=== PATIENT | female | born 1945 | race Caucasian/White ===

== ENCOUNTER 2016-10-04 00:16 | Emergency (ER) | payer MEDICARE, BC ==
[2016-10-04] MEDS ORDERED: Ketorolac 30 MG/ML SDV IVPUSH ONE (00:35)
[2016-10-04] MEDS ORDERED: LORazepam 2 MG/ML MDV IVPUSH ONE (00:35)
[2016-10-04] MEDS ORDERED: Sodium Chloride 0.9% 1,000 ML IV ONE (00:35)
[2016-10-04] MEDS ORDERED: Ondansetron 4 MG/2 ML SDV IVPUSH ONE (00:35)
--- NOTE | 2016-10-04 00:41 | EDM.PDOC ---
ED HPI GENERAL MEDICAL PROBLEM - General Chief Complaint: Abdominal Pain Stated Complaint: BLADDER INFECTION Time Seen by Provider: 10/04/16 00:24 Source of Information: Reports: Patient History Limitations: Reports: No Limitations - History of Present Illness INITIAL COMMENTS - FREE TEXT/NARRATIVE: HISTORY AND PHYSICAL: History of present illness: [71-year-old female with a history of chronic abdominal pain and recurrent episodes of nonspecific colitis now presents to the emergency department complaining of gradual onset of abdominal pain typical for her. Patient states she has left lower abdominal pain. Is not worse with movement. She has nausea associated with it but no actual vomiting. No diarrhea. Normal bowel and bladder habits. No right upper quadrant or right lower quadrant tenderness.] Review of systems: As per history of present illness and below otherwise all systems reviewed and negative. Past medical history: As per history of present illness and as reviewed below otherwise noncontributory. Surgical history: As per history of present illness and as reviewed below otherwise noncontributory. Social history: No reported history of drug or alcohol abuse. Family history: As per history of present illness and as reviewed below otherwise noncontributory. Physical exam: HEENT: Atraumatic, normocephalic, pupils reactive, negative for conjunctival pallor or scleral icterus, mucous membranes moist, throat clear, neck supple, nontender, trachea midline. Lungs: Clear to auscultation, breath sounds equal bilaterally, chest nontender. Heart: S1S2, regular, negative for clicks, rubs, or JVD. Abdomen: Soft, nondistended, no focal abdominal tenderness. Negative for masses or hepatosplenomegaly. Negative for costovertebral tenderness. Pelvis: Stable nontender. Genitourinary: Deferred. Rectal: Deferred. Extremities: Atraumatic, negative for cords or calf pain. Neurovascular unremarkable. Neuro: Awake, alert, oriented. Cranial nerves grossly unremarkable. Exam nonfocal. Diagnostics: [CT abdomen and pelvis with gallstones otherwise unremarkable. No urologic evidence of an acute right upper quadrant process. Therapeutics: [Toradol, Ativan, Zofran, IV fluids administered] Impression: [Acute exacerbation of chronic abdominal pain Cholelithiasis Nausea] Plan: [Signs and symptoms consistent with exacerbation of chronic abdominal pain well known to patient. No fevers chills sweats or shaking chills. No focal abdominal tenderness. Specifically no right upper right lower quadrant tenderness. Patient has no actual vomiting however she is spitting into a bag initially. Patient has a clearly contributory anxiety component which was resolved with Ativan dose and she was sleeping comfortably. Patient asymptomatic on reevaluation prior to discharge. No further workup or treatment indicated. Patient and family agree with outpatient follow-up and strict return precautions given] Definitive disposition and diagnosis as appropriate pending reevaluation and review of above. Lower Abdomen Pain Score (Numeric/FACES): 6 - Related Data Allergies Allergy/AdvReac Type Severity Reaction Status Date / Time No Known Allergies Allergy Verified 10/04/16 00:29 Home Meds: Home Meds Levothyroxine 75 mcg PO DAILY 10/08/13 [History] oxyCODONE HCl/Acetaminophen [Endocet 10-325 MG] 10 - 325 tab PO Q4HR PRN [History] predniSONE [Prednisone] 5 mg PO BID 07/23/15 [History] Aspirin 81 mg PO DAILY 10/04/16 [History] Cimetidine 200 mg PO ASDIRECTED PRN 10/04/16 [History] Fish Oil/[place]-3 Fatty Acids [Fish Oil 1,000 MG] 1 tab PO DAILY 10/04/16 [ History] Flaxseed Oil [Flaxseed] 0 mg PO DAILY 10/04/16 [History] Magnesium 0 mg PO DAILY 10/04/16 [History] Multivit-Min/FA/Lycopene/Lut [Centrum Silver Tablet] 1 tab PO DAILY 10/04/16 [ History] Ondansetron [Zofran ODT] 4 mg SL Q4H PRN #16 tab.dis 10/04/16 [Rx] Sulfamethoxazole/Trimethoprim [Septra DS] 800 mg PO BID 10/04/16 [History] Past Medical History HEENT History: Reports: None Cardiovascular History: Reports: CAD, [place], Stents Other Cardiovascular History: stent placement due to heart attack 10 years ago Respiratory History: Reports: None, Other (See Below) Gastrointestinal History: Reports: None, Other (See Below) Other Gastrointestinal History: stomach issues, of unknown cause.per son Genitourinary History: Reports: None 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: Musculoskeletal History: Reports: Osteoarthritis Neurological History: Reports: None Psychiatric History: Reports: None Endocrine/Metabolic History: Reports: None Other Endocrine/Metabolic History: pt is on on synthroid Hematologic History: Reports: None Immunologic History: Reports: None Oncologic (Cancer) History: Reports: None Dermatologic History: Reports: None - Infectious Disease History Infectious Disease History: Reports: Chicken Pox, Measles, Mumps - Past Surgical History Cardiovascular Surgical History: Reports: Coronary Artery Stent Female Surgical History: Reports: Tubal Ligation Social & Family History - Family History Family Medical History: Unobtainable Neurological: Reports: CVA Other Neurological Family History: brother - Tobacco Use Smoking Status *Q: Current Every Day Smoker Years of Tobacco use: 50 Packs/Tins Daily: 1 Used Tobacco, but Quit: No Second Hand Smoke Exposure: No - Alcohol Use Days Per Week of Alcohol Use: 0 - Recreational Drug Use Recreational Drug Use: No ED ROS GENERAL - Review of Systems Review Of Systems: See Below (History of present illness) ED EXAM, GI/ABD - Physical Exam Exam: See Below (History of present illness) Course - Vital Signs Last Recorded V/S: Last Vital Signs Temp 36.7 C 10/04/16 00:19 Pulse 94 10/04/16 02:35 Resp 16 10/04/16 02:35 BP 128/58 L 10/04/16 02:35 Pulse Ox 97 10/04/16 02:35 - Orders/Labs/Meds Orders: Active Orders 24 hr Category Date Time Status Abdomen Pelvis w Cont [CT] Stat Exams 10/04/16 00:25 Taken Labs: Laboratory Tests 10/04/16 10/04/16 10/04/16 Range/Units 00:39 00:39 01:14 WBC 7.00 (4.0-11.0) K/uL RBC 4.62 (4.30-5.90) M/uL Hgb 15.1 (12.0-16.0) g/dL Hct 44.6 (36.0-46.0) % MCV 96.5 (80.0-98.0) fL MCH 32.7 H (27.0-32.0) pg MCHC 33.9 (31.0-37.0) g/dL RDW Std Deviation 48.4 (28.0-62.0) fl RDW Coeff of Maxim 14 (11.0-15.0) % Plt Count 150 (150-400) K/uL MPV 10.10 (7.40-12.00) fL Neut % (Auto) 83.2 H (48.0-80.0) % Lymph % (Auto) 6.3 L (16.0-40.0) % [place] % (Auto) 6.4 (0.0-15.0) % Eos % (Auto) 4.1 (0.0-7.0) % Baso % (Auto) 0.0 (0.0-1.5) % Neut # (Auto) 5.8 H (1.4-5.7) K/uL Lymph # (Auto) 0.4 L (0.6-2.4) K/uL [place] # (Auto) 0.5 (0.0-0.8) K/uL Eos # (Auto) 0.3 (0.0-0.7) K/uL Baso # (Auto) 0.0 (0.0-0.1) K/uL Sodium 133 L (136-146) mmol/L Potassium 4.1 (3.5-5.1) mmol/L Chloride 99 (98-110) mmol/L Carbon Dioxide 22 (21-31) mmol/L BUN 13 (6.0-23.0) mg/dL Creatinine 1.3 (0.6-1.5) mg/dL Est Cr Clr Drug Dosing 29.52 mL/min Estimated GFR (MDRD) 40.3 ml/min Glucose 83 (60-110) mg/dL Calcium 9.8 (8.8-10.8) mg/dL Total Bilirubin 0.3 (0.1-1.5) mg/dL AST 26 (5-40) IU/L ALT 22 (8-54) IU/L Alkaline Phosphatase 54 (40-150) Total Protein 7.9 (6.0-8.0) g/dL Albumin 4.2 (3.4-4.8) g/dL Globulin 3.7 H (2.0-3.5) g/dL Albumin/Globulin Ratio 1.1 L (1.3-2.8) Lipase 10 (7-80) U/L Urine Color YELLOW Urine Appearance CLEAR Urine pH 6.0 (5.0-8.0) Ur Specific [place] >= 1.030 (1.001-1.035) Urine Protein NEGATIVE (NEGATIVE) mg/dL Urine Glucose (UA) NEGATIVE (NEGATIVE) mg/dL Urine Ketones 15 H (NEGATIVE) mg/dL Urine Occult Blood TRACE-INTACT (NEGATIVE) Urine Nitrite NEGATIVE (NEGATIVE) Urine Bilirubin NEGATIVE (NEGATIVE) Urine Urobilinogen 0.2 (<2.0) EU/dL Ur Leukocyte Esterase NEGATIVE (NEGATIVE) Urine RBC 0-3 (0-2/HPF) Urine WBC 0-1 (0-5/HPF) Ur Epithelial Cells RARE (NONE-FEW) Urine Bacteria RARE (NEGATIVE) Urine Mucus LIGHT (NONE-MOD) Meds: Medications Discontinued Medications Generic Name Dose Route Start Last Admin Trade Name Freq PRN Reason Stop Dose Admin Sodium Chloride 1,000 mls @ 999 mls/hr 10/04/16 00:35 10/04/16 00:48 Normal Saline IV 10/04/16 01:35 999 mls/hr STAT ONE Administration Iopamidol 50 ml 10/04/16 01:30 10/04/16 01:31 Isovue-300 (61%) IVPUSH 10/04/16 01:31 50 ml ONETIME STA Administration Ketorolac Tromethamine 15 mg 10/04/16 00:35 10/04/16 00:48 Toradol IVPUSH 10/04/16 00:36 15 mg ONETIME ONE Administration Lorazepam 0.5 mg 10/04/16 00:35 10/04/16 00:48 Ativan IVPUSH 10/04/16 00:36 0.5 mg ONETIME ONE Administration Ondansetron HCl 4 mg 10/04/16 00:35 10/04/16 00:48 Zofran IVPUSH 10/04/16 00:36 4 mg ONETIME ONE Administration Departure - Departure Time of Disposition: 02:57 Disposition: Home, Self-Care 01 Condition: Good Clinical Impression: Abdominal pain, Cholelithiasis - Discharge Information Instructions: Abdominal Pain, Adult, [id number] Referrals: Robert Haynes MD [Primary Care Provider] - Forms: ED Department Discharge Additional Instructions: Your labs are unremarkable today and your CAT scan showed no evidence of an emergency tonight. There was an incidental finding of gallstones. Follow-up with your DrAllan for reevaluation and referral to surgery to discuss possibly removing your gallbladder as an outpatient. Use Zofran under your tongue as needed for nausea and follow-up with your doctor in the morning. Return immediately for new severe or worsening symptoms - My Orders Last 24 Hours: My Active Orders 10/04/16 00:25 Abdomen Pelvis w Cont [CT] Stat - Assessment/Plan Last 24 Hours: My Active Orders 10/04/16 00:25 Abdomen Pelvis w Cont [CT] Stat
[2016-10-04] MEDS ORDERED: Iopamidol 612 MG/ML 50 ML SDV IVPUSH STA (01:30)
[2016-10-04 03:17] VITALS: BP 131/61
--- NOTE | 2016-10-04 08:49 | CT ---
EXAM DATE: 10/04/16 PATIENT'S AGE: 71 Patient: DINAH DESAI Facility: [place], [place] Site . Site : 1945 Study: CT Abdomen/Pelvis [id number] 2:23:05 AM Ordering Physician: Doctor Ingram Final Report: INDICATION: Severe abdominal pain. TECHNIQUE: CT abdomen and pelvis acquired with 50 mL Isovue 300 IV contrast. COMPARISON: CT abdomen and pelvis September 19, 2010. FINDINGS: Lower chest: Unremarkable. Liver: Unremarkable. Spleen: Unremarkable. Pancreas: Unremarkable. Gallbladder and bile ducts: Tiny stones layering in the fundus of the gallbladder. No pericholecystic inflammatory changes. No evidence of biliary ductal dilatation. Kidneys: Unremarkable. Adrenal glands: Unremarkable. GI tract: No bowel obstruction or focal inflammatory changes. The appendix is normal. No free air or free fluid. Vascular structures: No abdominal aortic aneurysm. Atherosclerotic disease. Lymph nodes: Unremarkable. Pelvic Organs: Unremarkable. Bones: Degenerative changes. IMPRESSION: No acute intra-abdominal or pelvic abnormality. Cholelithiasis. Dictated by Wilver Elizondo MD @ 10/04/2016 2:45:47 AM Dictated by: Wilver Elizondo MD @ 10/04/2016 02:46:15 (Electronic Signature) Report Signed by Proxy. [facility]FINE HOSPITALAguilar
== END 2016-10-04 03:10 | disposition home or self-care (01) ==
LOC: MW.ED 00:16
DX: R10.9 Unspecified abdominal pain (principal); G89.29 Other chronic pain; R11.0 Nausea; K80.20 Calculus of gallbladder without cholecystitis without obstruction; I25.2 Old myocardial infarction; I25.10 Atherosclerotic heart disease of native coronary artery without angina pectoris; M19.90 Unspecified osteoarthritis, unspecified site; F17.210 Nicotine dependence, cigarettes, uncomplicated; Z95.5 Presence of coronary angioplasty implant and graft; Z98.51 Tubal ligation status; Z79.82 Long term (current) use of aspirin; Z79.899 Other long term (current) drug therapy
CPT/HCPCS: 36415; 74177; 80053; 81001; 83690; 85025; 96361; 96374; 96375; 99284; J1885; J2060; J2405; J7040; Q9967; 99283

== ENCOUNTER 2016-10-04 12:59 | Inpatient (IN) | payer MEDICARE, BC ==
[2016-10-04] MEDS ORDERED: Acetaminophen 325 MG Tab PO ONE (13:10)
[2016-10-04] MEDS ORDERED: Acetaminophen 650 MG Supp RECTAL ONE (13:16)
[2016-10-04] MEDS: Sodium Chloride 0.9% 1,000 ML IV SCH ×2 (13:22→23:48)
[2016-10-04] MEDS ORDERED: Piperacillin/Tazobactam 3.375 GM in Sodium Chloride 0.9% 50 ML IV ONE (13:25)
--- NOTE | 2016-10-04 14:31 | CR ---
Single view chest The gastric angles are sharp. The cardiac mediastinum is normal. Lungs are clear. Given history of p ain with shortness of breath there's no pneumothorax. Impression: Normal single view chest
--- NOTE | 2016-10-04 14:41 | EDM.PDOC ---
ED HPI GENERAL MEDICAL PROBLEM - General Chief Complaint: Abdominal Pain Stated Complaint: AMBULANCE Time Seen by Provider: 10/04/16 14:35 Source of Information: Reports: Patient, EMS - History of Present Illness INITIAL COMMENTS - FREE TEXT/NARRATIVE: HISTORY AND PHYSICAL: History of present illness: []Patient presents via ambulance She was seen last night at approximately 4 AM with abdominal pain in the left lower quadrant. She was previously diagnosed with a cystitis, and placed on Bactrim over the last couple of days, urine culture is growing out Klebsiella pneumoniae susceptible to Bactrim. Patient had normal lab of 4 AM including CBC CMP UA CT abdomen pelvis was also performed with no acute finding Review of systems: As per history of present illness and below otherwise all systems reviewed and negative. Past medical history: As per history of present illness and as reviewed below otherwise noncontributory. Surgical history: As per history of present illness and as reviewed below otherwise noncontributory. Social history: No reported history of drug or alcohol abuse. Family history: As per history of present illness and as reviewed below otherwise noncontributory. Physical exam: HEENT: Atraumatic, normocephalic, pupils reactive, negative for conjunctival pallor or scleral icterus, mucous membranes moist, throat clear, neck supple, nontender, trachea midline. Lungs: Clear to auscultation, breath sounds equal bilaterally, chest nontender. Heart: S1S2, regular, negative for clicks, rubs, or JVD. Abdomen: Soft, nondistended, tender in left lower quadrant is previous exam of 4 AM however there is some right upper quadrant tenderness as well as right lower quadrant tenderness this afternoon no guarding or rebound. Negative for masses or hepatosplenomegaly. Negative for costovertebral tenderness. Pelvis: Stable nontender. Genitourinary: Deferred. Rectal: Deferred. Extremities: Atraumatic, negative for cords or calf pain. Neurovascular unremarkable. Neuro: Awake, alert, oriented. Cranial nerves II through XII unremarkable. Cerebellum unremarkable. Motor and sensory unremarkable throughout. Exam nonfocal. Diagnostics: []Lab as below Chest [address] abdomen pelvis on file from 4 AM Ultrasound right upper quadrant and right lower quadrant Therapeutics: Normal saline 125 mL per hour []Zosyn 3.375 mg IV Impression: []Abdominal pain Fever Day 6 of Bactrim Previous UTI Sinus tenderness Definitive disposition and diagnosis as appropriate pending reevaluation and review of above. - Related Data Allergies Allergy/AdvReac Type Severity Reaction Status Date / Time No Known Allergies Allergy Verified 10/04/16 13:04 Home Meds: Home Meds Levothyroxine 75 mcg PO DAILY 10/08/13 [History] oxyCODONE HCl/Acetaminophen [Endocet 10-325 MG] 10 - 325 tab PO Q4HR PRN [History] predniSONE [Prednisone] 5 mg PO BID 07/23/15 [History] Aspirin 81 mg PO DAILY 10/04/16 [History] Cimetidine 200 mg PO ASDIRECTED PRN 10/04/16 [History] Fish Oil/[place]-3 Fatty Acids [Fish Oil 1,000 MG] 1 tab PO DAILY 10/04/16 [ History] Flaxseed Oil [Flaxseed] 0 mg PO DAILY 10/04/16 [History] Magnesium 0 mg PO DAILY 10/04/16 [History] Multivit-Min/FA/Lycopene/Lut [Centrum Silver Tablet] 1 tab PO DAILY 10/04/16 [ History] Ondansetron [Zofran ODT] 4 mg SL Q4H PRN #16 tab.dis 10/04/16 [Rx] Sulfamethoxazole/Trimethoprim [Septra DS] 800 mg PO BID 10/04/16 [History] Past Medical History - Past Health History Medical/Surgical History: Denies Medical/Surgical History HEENT History: Reports: None Cardiovascular History: Reports: CAD, [place], Stents Other Cardiovascular History: stent placement due to heart attack 10 years ago Respiratory History: Reports: None, Other (See Below) Gastrointestinal History: Reports: None, Other (See Below) Other Gastrointestinal History: stomach issues, of unknown cause.per son Genitourinary History: Reports: None 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: Musculoskeletal History: Reports: Osteoarthritis Neurological History: Reports: None Psychiatric History: Reports: None Endocrine/Metabolic History: Reports: None Other Endocrine/Metabolic History: pt is on on synthroid Hematologic History: Reports: None Immunologic History: Reports: None Oncologic (Cancer) History: Reports: None Dermatologic History: Reports: None - Infectious Disease History Infectious Disease History: Reports: Chicken Pox, Measles, Mumps - Past Surgical History Cardiovascular Surgical History: Reports: Coronary Artery Stent Female Surgical History: Reports: Tubal Ligation Social & Family History - Family History Family Medical History: Unobtainable Neurological: Reports: CVA Other Neurological Family History: brother - Tobacco Use Smoking Status *Q: Current Every Day Smoker Years of Tobacco use: 50 Packs/Tins Daily: 1 Used Tobacco, but Quit: No Second Hand Smoke Exposure: No - Caffeine Use Caffeine Use: Reports: Coffee Caffeine Use Comment: 1cups/day - Alcohol Use Days Per Week of Alcohol Use: 0 - Recreational Drug Use Recreational Drug Use: No ED ROS GENERAL - Review of Systems Review Of Systems: ROS reveals no pertinent complaints other than HPI. ED EXAM, GENERAL - Physical Exam Exam: See Below Course - Vital Signs Last Recorded V/S: Last Vital Signs Temp 39.6 C H 10/04/16 14:56 Pulse 116 H 10/04/16 14:11 Resp 20 10/04/16 14:11 BP 133/69 10/04/16 14:11 Pulse Ox 98 10/04/16 14:11 - Orders/Labs/Meds Orders: Active Orders 24 hr Category Date Time Status EKG Documentation Completion [RC] STAT Care 10/04/16 13:14 Active CULTURE BLOOD [BC] Stat Lab 10/04/16 13:05 Received CULTURE BLOOD [BC] Stat Lab 10/04/16 13:10 Received Sodium Chloride 0.9% [Normal Saline] 1,000 ml Med 10/04/16 13:15 Active IV STAT Blood Culture x2 Reflex Set [OM.PC] Stat Oth 10/04/16 13:08 Ordered Medication Orders Sodium Chloride (Normal Saline) 1,000 mls @ 125 mls/hr IV STAT LUDIN Last Admin: 10/04/16 13:22 Dose: 125 mls/hr Labs: Laboratory Tests 10/04/16 10/04/16 10/04/16 Range/Units 13:05 13:05 13:05 WBC 4.96 (4.0-11.0) K/uL RBC 4.49 (4.30-5.90) M/uL Hgb 14.5 (12.0-16.0) g/dL Hct 43.0 (36.0-46.0) % MCV 95.8 (80.0-98.0) fL MCH 32.3 H (27.0-32.0) pg MCHC 33.7 (31.0-37.0) g/dL RDW Std Deviation 50.6 (28.0-62.0) fl RDW Coeff of [place] 14 (11.0-15.0) % Plt Count 125 L (150-400) K/uL MPV 10.10 (7.40-12.00) fL Neut % (Auto) 66.5 (48.0-80.0) % Lymph % (Auto) 13.1 L (16.0-40.0) % [place] % (Auto) 13.3 (0.0-15.0) % Eos % (Auto) 6.9 (0.0-7.0) % Baso % (Auto) 0.2 (0.0-1.5) % Neut # (Auto) 3.3 (1.4-5.7) K/uL Lymph # (Auto) 0.7 (0.6-2.4) K/uL [place] # (Auto) 0.7 (0.0-0.8) K/uL Eos # (Auto) 0.3 (0.0-0.7) K/uL Baso # (Auto) 0.0 (0.0-0.1) K/uL Nucleated RBC % 0.8 /100WBC Nucleated RBCs # 0 K/uL Lactate 1.1 (0.20-2.00) mmol/L Sodium 134 L (136-146) mmol/L Potassium 4.0 (3.5-5.1) mmol/L Chloride 103 (98-110) mmol/L Carbon Dioxide 21 (21-31) mmol/L BUN 16 (6.0-23.0) mg/dL Creatinine 1.1 (0.6-1.5) mg/dL Est Cr Clr Drug Dosing 34.88 mL/min Estimated GFR (MDRD) 48.8 ml/min Glucose 76 (60-110) mg/dL Calcium 9.2 (8.8-10.8) mg/dL Total Bilirubin 0.3 (0.1-1.5) mg/dL AST 32 (5-40) IU/L ALT 23 (8-54) IU/L Alkaline Phosphatase 50 (40-150) Troponin I (0.0-0.29) NG/ML Total Protein 7.3 (6.0-8.0) g/dL Albumin 3.9 (3.4-4.8) g/dL Globulin 3.4 (2.0-3.5) g/dL Albumin/Globulin Ratio 1.1 L (1.3-2.8) Urine Color Urine Appearance Urine pH (5.0-8.0) Ur Specific [place] (1.001-1.035) Urine Protein (NEGATIVE) mg/dL Urine Glucose (UA) (NEGATIVE) mg/dL Urine Ketones (NEGATIVE) mg/dL Urine Occult Blood (NEGATIVE) Urine Nitrite (NEGATIVE) Urine Bilirubin (NEGATIVE) Urine Urobilinogen (<2.0) EU/dL Ur Leukocyte Esterase (NEGATIVE) Urine RBC (0-2/HPF) Urine WBC (0-5/HPF) Ur Epithelial Cells (NONE-FEW) Urine Bacteria (NEGATIVE) 10/04/16 10/04/16 Range/Units 13:05 14:22 WBC (4.0-11.0) K/uL RBC (4.30-5.90) M/uL Hgb (12.0-16.0) g/dL Hct (36.0-46.0) % MCV (80.0-98.0) fL MCH (27.0-32.0) pg MCHC (31.0-37.0) g/dL RDW Std Deviation (28.0-62.0) fl RDW Coeff of [place] (11.0-15.0) % Plt Count (150-400) K/uL MPV (7.40-12.00) fL Neut % (Auto) (48.0-80.0) % Lymph % (Auto) (16.0-40.0) % [place] % (Auto) (0.0-15.0) % Eos % (Auto) (0.0-7.0) % Baso % (Auto) (0.0-1.5) % Neut # (Auto) (1.4-5.7) K/uL Lymph # (Auto) (0.6-2.4) K/uL [place] # (Auto) (0.0-0.8) K/uL Eos # (Auto) (0.0-0.7) K/uL Baso # (Auto) (0.0-0.1) K/uL Nucleated RBC % /100WBC Nucleated RBCs # K/uL Lactate (0.20-2.00) mmol/L Sodium (136-146) mmol/L Potassium (3.5-5.1) mmol/L Chloride (98-110) mmol/L Carbon Dioxide (21-31) mmol/L BUN (6.0-23.0) mg/dL Creatinine (0.6-1.5) mg/dL Est Cr Clr Drug Dosing mL/min Estimated GFR (MDRD) ml/min Glucose (60-110) mg/dL Calcium (8.8-10.8) mg/dL Total Bilirubin (0.1-1.5) mg/dL AST (5-40) IU/L ALT (8-54) IU/L Alkaline Phosphatase (40-150) Troponin I < 0.10 (0.0-0.29) NG/ML Total Protein (6.0-8.0) g/dL Albumin (3.4-4.8) g/dL Globulin (2.0-3.5) g/dL Albumin/Globulin Ratio (1.3-2.8) Urine Color YELLOW Urine Appearance CLEAR Urine pH 6.0 (5.0-8.0) Ur Specific [place] 1.020 (1.001-1.035) Urine Protein NEGATIVE (NEGATIVE) mg/dL Urine Glucose (UA) NEGATIVE (NEGATIVE) mg/dL Urine Ketones 40 H (NEGATIVE) mg/dL Urine Occult Blood TRACE-INTACT (NEGATIVE) Urine Nitrite NEGATIVE (NEGATIVE) Urine Bilirubin NEGATIVE (NEGATIVE) Urine Urobilinogen 0.2 (<2.0) EU/dL Ur Leukocyte Esterase NEGATIVE (NEGATIVE) Urine RBC 0-1 (0-2/HPF) Urine WBC 0-2 (0-5/HPF) Ur Epithelial Cells RARE (NONE-FEW) Urine Bacteria RARE (NEGATIVE) Meds: Medications Generic Name Dose Route Start Last Admin Trade Name Freq PRN Reason Stop Dose Admin Sodium Chloride 1,000 mls @ 125 mls/hr 10/04/16 13:15 10/04/16 13:22 Normal Saline IV 125 mls/hr STAT LUDIN Administration Discontinued Medications Generic Name Dose Route Start Last Admin Trade Name Freq PRN Reason Stop Dose Admin Acetaminophen 650 mg 10/04/16 13:10 10/04/16 14:01 Tylenol PO 10/04/16 13:11 Not Given NOW ONE Acetaminophen 650 mg 10/04/16 13:16 10/04/16 13:22 Tylenol RECTAL 10/04/16 13:17 650 mg NOW ONE Administration Piperacillin Sod/Tazobactam 50 mls @ 100 mls/hr 10/04/16 13:25 10/04/16 14:02 Sod 3.375 gm/ Sodium Chloride IV 10/04/16 13:54 100 mls/hr ONETIME ONE Administration Departure - Departure Time of Disposition: 15:32 Disposition: Admitted As Inpatient 65 Condition: Fair Clinical Impression: Fever, Abdominal pain, Sinusitis - Discharge Information Forms: ED Department Discharge - My Orders Last 24 Hours: My Active Orders 10/04/16 13:05 CULTURE BLOOD [BC] Stat 10/04/16 13:08 Blood Culture x2 Reflex Set [OM.PC] Stat 10/04/16 13:10 CULTURE BLOOD [BC] Stat 10/04/16 13:14 EKG Documentation Completion [RC] STAT 10/04/16 13:15 Sodium Chloride 0.9% [Normal Saline] 1,000 ml IV STAT - Assessment/Plan Last 24 Hours: My Active Orders 10/04/16 13:05 CULTURE BLOOD [BC] Stat 10/04/16 13:08 Blood Culture x2 Reflex Set [OM.PC] Stat 10/04/16 13:10 CULTURE BLOOD [BC] Stat 10/04/16 13:14 EKG Documentation Completion [RC] STAT 10/04/16 13:15 Sodium Chloride 0.9% [Normal Saline] 1,000 ml IV STAT
--- NOTE | 2016-10-04 15:29 | US ---
Abdominal sonogram Multiple longitudinal and transverse sections of the abdomen were obtained. The liver is 14.85 cm in length and is normally echogenic. . The gallbladder is physiologically distended without calculi or bile duct dilation. Hepatopedal flow is not established in the portal vein but there is no reason t o believe this patient has chronic liver disease. The kidney demonstrates no hydronephrosis or hydro ureter on the right. The appendix cannot be visualized but re-review of the CT exam from earlier a.m . reveals no evidence of a dilated tubular appendix.. The previous CT conclusion of stones within th e gallbladder is not supported by this ultrasound examination. Impression: No significant sonographic abnormalities including no cholelithiasis or bile duct dilati on. Appendix not identified but CT scan earlier a.m. revealed no significant abnormality in this reg ion
[2016-10-04] MEDS ORDERED: Acetaminophen 650 MG Supp RECTAL PRN (16:12)
[2016-10-04] MEDS ORDERED: Sodium Chloride 0.9% 500 ML IV SCH (16:15)
--- NOTE | 2016-10-04 16:17 | PCM.HP ---
H&P History of Present Illness - General Date of Service: 10/04/16 Admit Problem/Dx: Admission Diagnosis/Problem Admission Diagnosis/Problem Fever Source of Information: Patient History Limitations: Reports: No Limitations - History of Present Illness Initial Comments - Free Text/Narative: This 71 year old female with pmh of [place] with stenting 10-12 years ago, chronic colitis and abdominal pain, hypothyroidism, CA, and recent UTI treated with Bactrim. She arrived to the ED around midnight for worsening abdominal pain. At that time labwork and UA were negartive. Abdominal CT was obtained which reported nothing acute, but did note cholelithiasis. She was discharged home. SHe then returned to the ED this afternoon with worsening pain and now fevers. Fever noted in the ED 104.6 F and tachycardic, 115s. She reports she has been feeling not well for the last couple days, she reports sinus pain and ear pain, reports rhinitis, cough with little sputum production. She denies neck pain, chest pain or SOB. She reports some nausea intermittently, has not been taking Bactrim well, per son, due to nausea. Denies diarrhea or black or bloody BMs. Has not been eating or drinking well. She did complain initially of abdominal pain, but during assessment she denies this. She lives with her at home. She does smoke, 1 ppd. Denies recreational drug use or alcohol use. Denies recent travel, no sick contacts. She reports she did not receive the influenza vaccine. In the ED, WBC 4,960 platelets 125,000, lactate 1.1, Na 134. UA negative. U/S of abdomen negative, again cholelithiasis noted without cholecystitis. EKG Sinus tachycardia. She was treated with Zosyn in the ED and given some IVFs. BC pending. She will be admitted for fever, likely secondary to sinusitis. PCP, Dr. Haynes. - Related Data Allergies/Adverse Reactions: Allergies Allergy/AdvReac Type Severity Reaction Status Date / Time No Known Allergies Allergy Verified 10/04/16 13:04 Home Medications: Home Meds Levothyroxine 75 mcg PO DAILY 10/08/13 [History] oxyCODONE HCl/Acetaminophen [Endocet 10-325 MG] 10 - 325 tab PO Q4HR PRN [History] predniSONE [Prednisone] 5 mg PO BID 07/23/15 [History] Aspirin 81 mg PO DAILY 10/04/16 [History] Cimetidine 200 mg PO ASDIRECTED PRN 10/04/16 [History] Fish Oil/[place]-3 Fatty Acids [Fish Oil 1,000 MG] 1 tab PO DAILY 10/04/16 [ History] Flaxseed Oil [Flaxseed] 0 mg PO DAILY 10/04/16 [History] Magnesium 0 mg PO DAILY 10/04/16 [History] Multivit-Min/FA/Lycopene/Lut [Centrum Silver Tablet] 1 tab PO DAILY 10/04/16 [ History] Ondansetron [Zofran ODT] 4 mg SL Q4H PRN #16 tab.dis 10/04/16 [Rx] Sulfamethoxazole/Trimethoprim [Septra DS] 800 mg PO BID 10/04/16 [History] Past Medical History - Past Health History Medical/Surgical History: Denies Medical/Surgical History HEENT History: Reports: None Cardiovascular History: Reports: CAD, VT, Stents. Denies: Afib, Blood Clots/VTE /DVT Other Cardiovascular History: stent placement due to heart attack 10 years ago Respiratory History: Reports: None. Denies: Asthma, COPD Gastrointestinal History: Reports: None, Other (See Below) Other Gastrointestinal History: chronic abdominal pain, of unknown cause per son Genitourinary History: Reports: None. Denies: Acute Renal Failure REMOTE CODERS History: Reports: Musculoskeletal History: Reports: Osteoarthritis Neurological History: Reports: None. Denies: CVA, TIA Psychiatric History: Reports: None Endocrine/Metabolic History: Reports: Hypothyroidism, Obesity/BMI 30+ Hematologic History: Reports: None Immunologic History: Reports: None Oncologic (Cancer) History: Reports: None Dermatologic History: Reports: None - Infectious Disease History Infectious Disease History: Reports: Chicken Pox, Measles, Mumps - Past Surgical History Head Surgeries/Procedures: Reports: None Cardiovascular Surgical History: Reports: Coronary Artery Stent Female Surgical History: Reports: Tubal Ligation Social & Family History - Family History Family Medical History: Unobtainable Neurological: Reports: CVA Other Neurological Family History: brother - Tobacco Use Smoking Status *Q: Current Every Day Smoker Years of Tobacco use: 50 Packs/Tins Daily: 1 Used Tobacco, but Quit: No Second Hand Smoke Exposure: No - Caffeine Use Caffeine Use: Reports: Coffee Caffeine Use Comment: 1cups/day - Alcohol Use Days Per Week of Alcohol Use: 0 - Recreational Drug Use Recreational Drug Use: No - Living Situation & Occupation Living situation: Reports: Occupation: Retired H&P Review of Systems - Review of Systems: Review Of Systems: See Below General: Reports: Fever, Malaise, Weakness, Other (lethargic intermittently, but awakes appropriately) HEENT: Reports: No Symptoms. Denies: Sinus Congestion, Visual Changes Pulmonary: Reports: Cough. Denies: Shortness of Breath, Wheezing, Sputum Cardiovascular: Reports: No Symptoms. Denies: Chest Pain Gastrointestinal: Reports: No Symptoms, Nausea. Denies: Abdominal Pain ( initially complained of this, now not having this.), Black Stool, Bloody Stool, Vomiting Genitourinary: Denies: Dysuria, Frequency, Burning, Pain Musculoskeletal: Reports: No Symptoms Skin: Reports: No Symptoms Psychiatric: Reports: No Symptoms. Denies: Confusion Neurological: Reports: No Symptoms Hematologic/Lymphatic: Reports: No Symptoms Immunologic: Reports: No Symptoms Exam - Exam Exam: See Below - Vital Signs Vital Signs: Last Vital Signs Temp 103.2 F H 10/04/16 14:56 Pulse 115 H 10/04/16 15:53 Resp 20 10/04/16 15:53 BP 192/164 H 10/04/16 15:53 Pulse Ox 98 10/04/16 15:53 Weight: 73.5 kg - Exam Quality Assessment: Supplemental Oxygen, Urinary Catheter General: Alert, Oriented, Cooperative HEENT: Conjunctiva Clear, Mucosa Moist & [place], Nares Patent, Posterior Pharynx Clear, Pupils Equal, Other (clear rhinitis noted, pain to maxillary sinus and frontal sinuses) Neck: Supple, Trachea Midline, Full Range of Motion (no nuchal rigidity). No: Lymphadenopathy Lungs: Normal Respiratory Effort, Decreased Breath Sounds (throughout). No: Wheezing Cardiovascular: Regular Rhythm, Normal S1, Normal S2, Tachycardia. No: Systolic Murmur GI/Abdominal Exam: Normal Bowel Sounds, Soft, Non-Tender, No Organomegaly, No Distention, No Abnormal Bruit, No Mass, Pelvis Stable. No: Guarding, Mass Extremities: Normal Inspection, Normal Range of Motion, Non-Tender, No Pedal Edema Skin: Warm, Dry, Intact Neuro Extensive - Mental Status: Alert, Oriented x3, Normal Mood/Affect Neuro Extensive - Motor, Sensory, Reflexes: CN II-XII Intact Psychiatric: Alert, Normal Affect, Normal Mood - Patient Data Result Diagrams: 10/04/16 13:05 10/04/16 13:05 *Q Meaningful Use (ADM) - VTE *Q VTE Criteria *Q: - VTE Risk Assess *Q Each Risk Factor Represents 1 Point: Obesity (BMI greater than 30) Total Score 1 Point Risk Factors: 1 Each Risk Factor Represents 2 Points: Age 60 - 74 Years Total Score 2 Point Risk Factors: 2 Each Risk Factor Represents 3 Points: None Total Score 3 Point Risk Factors: 0 Each Risk Factor Represents 5 Points: None Total Score 5 Point Risk Factors: 0 Venous Thromboembolism Risk Factor Score *Q: 3 - Stroke *Q Stroke Criteria *Q: - AMI *Q AMI Criteria *Q: - Problem List (1) Abdominal pain SNOMED Code(s): 32916663 ICD Code: R10.9 - UNSPECIFIED ABDOMINAL PAIN Status: Acute Current Visit : Yes Qualifiers: Abdominal location: generalized Qualified Code(s): R10.84 - Generalized abdominal pain (2) Fever SNOMED Code(s): 604399815 ICD Code: R50.9 - FEVER, UNSPECIFIED Status: Acute Current Visit: Yes Qualifiers: Encounter type: initial encounter (3) Sinusitis SNOMED Code(s): 58743222 ICD Code: J32.9 - CHRONIC SINUSITIS, UNSPECIFIED Status: Acute Current Visit: Yes Qualifiers: Sinusitis location: maxillary Chronicity: acute Recurrence: non- recurrent Qualified Code(s): J01.00 - Acute maxillary sinusitis, unspecified (4) Cholelithiasis SNOMED Code(s): 104833092 ICD Code: K80.20 - CALCULUS OF GALLBLADDER W/O CHOLECYSTITIS W/O OBSTRUCTION Status: Acute Current Visit: No Qualifiers: Cholelithiasis location: gallbladder Cholecystitis presence: without cholecystitis Biliary obstruction: without biliary obstruction Qualified Code(s): K80.20 - Calculus of gallbladder without cholecystitis without obstruction (5) Dehydration SNOMED Code(s): 97115886 ICD Code: E86.0 - DEHYDRATION Status: Acute Current Visit: No (6) Sepsis SNOMED Code(s): 70618961 ICD Code: A41.9 - SEPSIS, UNSPECIFIED ORGANISM Status: Acute Current Visit: No Qualifiers: Sepsis type: sepsis due to unspecified organism Qualified Code(s): A41.9 - Sepsis, unspecified organism Problem List Initiated/Reviewed/Updated: Yes Orders Last 24hrs: Active Orders 24 hr Category Date Time Status Height and Weight [RC] DAILY Care 10/04/16 16:12 Ordered Intake and Output [RC] QSHIFT Care 10/04/16 16:13 Ordered Oxygen Therapy [RC] PRN Care 10/04/16 16:12 Ordered Telemetry Monitoring [Cardiac Monitoring] [RC] . Care 10/04/16 16:12 Ordered DIRECTED Up With Assistance [RC] ASDIRECTED Care 10/04/16 16:12 Ordered VTE/DVT Education [RC] PER UNIT ROUTINE Care 10/04/16 16:12 Ordered Vital Signs [RC] Q4H Care 10/04/16 16:12 Ordered Heart Healthy Diet [DIET] Diet 10/04/16 Dinner Ordered BASIC METABOLIC PANEL,BMP [CHEM] AM Lab 10/05/16 05:11 Ordered CBC WITH AUTO DIFF [HEME] AM Lab 10/05/16 05:11 Ordered CULTURE SPUTUM + SMEAR [RM] Stat Lab 10/04/16 16:12 Uncollected Acetaminophen [Tylenol] Med 10/04/16 16:12 Ordered 650 mg PO Q4H PRN Acetaminophen [Tylenol] Med 10/04/16 16:12 Ordered 650 mg RECTAL Q4H PRN Enoxaparin [Lovenox] Med 10/05/16 09:00 Ordered 40 mg SUBCUT DAILY Ondansetron [Zofran] Med 10/04/16 16:12 Ordered 4 mg IVPUSH Q4H PRN Sodium Chloride 0.9% [Normal Saline] 500 ml Med 10/04/16 16:15 Ordered IV .BOLUS Resuscitation Status Routine Resus Stat 10/04/16 16:12 Ordered Medication Orders Acetaminophen (Tylenol) 650 mg RECTAL Q4H PRN PRN Reason: Pain (mild 1-3) Acetaminophen (Tylenol) 650 mg PO Q4H PRN PRN Reason: Pain (Mild 1-3)/fever Enoxaparin Sodium (Lovenox) 40 mg SUBCUT DAILY LUDIN Sodium Chloride (Normal Saline) 1,000 mls @ 125 mls/hr IV STAT LUDIN Last Admin: 10/04/16 13:22 Dose: 125 mls/hr Sodium Chloride (Normal Saline) 500 mls @ 999 mls/hr IV .BOLUS LUDIN Ondansetron HCl (Zofran) 4 mg IVPUSH Q4H PRN PRN Reason: Nausea Assessment/Plan Comment:: This 71 year old female admitted with fever, abdominal pain and sinusitis. 1. Sinusitis: possible early pneumonia? Will continue Zosyn since started in ED. Continue IVFs, tachycardia has improved slightly 90s from 115-120s since IVF initiated and Tylenol given. Fever decreased 102.2F. BC pending. Sputum culture ordered. Will continue to monitor. Will obtain influenza swab. Reporting general malaise and whole body hurting. 2. Abdominal pain: Son reports this is typically worsens when given antibiotics. Having this pain intermittently now. 3. UTI: Most recently on Bactrim. Will hold this for now. 4. CAD: Continue ASA. 5. Hypothyroid: Continue Levothyroxine VTE prophylaxis: Lovenox. DIspo: Pending improvement, 2-3 days.
[2016-10-04] MEDS ORDERED: Piperacillin/Tazobactam 3.375 GM in Sodium Chloride 0.9% 50 ML IV SCH (16:45)
[2016-10-04] MEDS: Ondansetron 4 MG/2 ML SDV IVPUSH PRN (17:04)
[2016-10-04] MEDS ORDERED: Magnesium Sulfate/Water 2 GM in Premix Bag 1 BAG IV ONE (17:06)
[2016-10-04] MEDS: Morphine 2 MG/ML Syringe IVPUSH PRN ×2 (17:39→22:26)
[2016-10-04] MEDS: Piperacillin/Tazobactam 3.375 GM in Sodium Chloride 0.9% 50 ML IV SCH (20:05)
[2016-10-04] MEDS ORDERED: Albuterol/Ipratropium 3.0-0.5 MG/3 ML Neb Soln NEB PRN (20:13)
[2016-10-04] MEDS: Acetaminophen 325 MG Tab PO PRN (22:27)
[2016-10-05] MEDS: Piperacillin/Tazobactam 3.375 GM in Sodium Chloride 0.9% 50 ML IV SCH ×4 (01:51→20:11)
[2016-10-05] MEDS: Acetaminophen 325 MG Tab PO PRN ×4 (03:22→18:19)
[2016-10-05 05:35] LABS: CHLORIDE,CL 110 mmol/L (98-110); SODIUM,NA 136 mmol/L (136-146)
[2016-10-05] MEDS: Ondansetron 4 MG/2 ML SDV IVPUSH PRN ×3 (05:57→18:19)
[2016-10-05] MEDS ORDERED: Sodium Chloride 0.65% Nasal Spray 45 ML Bottle NAS PRN (07:36)
--- NOTE | 2016-10-05 07:42 | PCM.PN ---
- Review of Systems Systems Review Comment:: patient reports sinus congestion, pain behind the eyes when she coughs, - Patient Data Vitals - Most Recent: Last Vital Signs Temp 36.9 C 10/05/16 07:24 Pulse 87 10/05/16 07:24 Resp 16 10/05/16 07:24 BP 120/42 L 10/05/16 07:24 Pulse Ox 97 10/05/16 07:24 Weight - Most Recent: 67.1 kg I&O - Last 24 Hours: Intake & Output 10/04/16 10/05/16 10/05/16 22:59 06:59 14:59 Intake Total 1700 1250 Output Total 425 375 Balance 1275 875 Lab Results Last 24 Hours: Laboratory Results - last 24 hr 10/05/16 10/05/16 10/05/16 Range/Units 04:58 04:58 06:36 WBC 5.52 (4.0-11.0) K/uL RBC 4.00 L (4.30-5.90) M/uL Hgb 12.5 (12.0-16.0) g/dL Hct 38.8 (36.0-46.0) % MCV 97.0 (80.0-98.0) fL MCH 31.3 (27.0-32.0) pg MCHC 32.2 (31.0-37.0) g/dL RDW Std Deviation 52.3 (28.0-62.0) fl RDW Coeff of Maxim 15 (11.0-15.0) % Plt Count 99 L (150-400) K/uL MPV 10.00 (7.40-12.00) fL Neut % (Auto) 78.3 (48.0-80.0) % Lymph % (Auto) 12.5 L (16.0-40.0) % [place] % (Auto) 4.5 (0.0-15.0) % Eos % (Auto) 4.5 (0.0-7.0) % Baso % (Auto) 0.2 (0.0-1.5) % Neut # (Auto) 4.3 (1.4-5.7) K/uL Lymph # (Auto) 0.7 (0.6-2.4) K/uL [place] # (Auto) 0.3 (0.0-0.8) K/uL Eos # (Auto) 0.3 (0.0-0.7) K/uL Baso # (Auto) 0.0 (0.0-0.1) K/uL Nucleated RBC % 0.0 /100WBC Nucleated RBCs # 0 K/uL Sodium 136 (136-146) mmol/L Potassium 3.9 (3.5-5.1) mmol/L Chloride 110 (98-110) mmol/L Carbon Dioxide 15 L (21-31) mmol/L BUN 16 (6.0-23.0) mg/dL Creatinine 0.8 (0.6-1.5) mg/dL Est Cr Clr Drug Dosing 64.38 mL/min Estimated GFR (MDRD) > 60.0 ml/min Glucose 53 L (60-110) mg/dL POC Glucose 111 H (60-110) mg/dL Calcium 7.5 L (8.8-10.8) mg/dL Isaias Results Last 24 Hours: Microbiology 10/04/16 17:47 Influenza Type A Antigen Screen - Final Nasopharyngeal Swab NEGATIVE INFLUENZA A VIRUS AG Influenza Type B Antigen Screen - Final NEGATIVE INFLUENZA B VIRUS AG Med Orders - Current: Current Medications Acetaminophen (Tylenol) 650 mg RECTAL Q4H PRN PRN Reason: Pain (mild 1-3) Acetaminophen (Tylenol) 650 mg PO Q4H PRN PRN Reason: Pain (Mild 1-3)/fever Last Admin: 10/05/16 03:22 Dose: 650 mg Albuterol/Ipratropium (Duoneb 3.0-0.5 Mg/3 Ml) 3 ml NEB Q6HRRT PRN PRN Reason: Wheezing Enoxaparin Sodium (Lovenox) 40 mg SUBCUT DAILY LUDIN Sodium Chloride (Normal Saline) 1,000 mls @ 125 mls/hr IV STAT LUDIN Last Admin: 10/04/16 23:48 Dose: 125 mls/hr Sodium Chloride (Normal Saline) 500 mls @ 999 mls/hr IV .BOLUS LUDIN Last Admin: 10/04/16 17:00 Dose: 999 mls/hr Piperacillin Sod/Tazobactam (Sod 3.375 gm/ Sodium Chloride) 50 mls @ 100 mls/ hr IV Q6H LUDIN Last Admin: 10/05/16 01:51 Dose: 100 mls/hr Levothyroxine Sodium (Levothyroxine) 75 mcg PO DAILY [facility] Morphine Sulfate (Morphine) 2 mg IVPUSH Q4H PRN PRN Reason: Pain Last Admin: 10/04/16 22:26 Dose: 2 mg Ondansetron HCl (Zofran) 4 mg IVPUSH Q4H PRN PRN Reason: Nausea Last Admin: 10/05/16 05:57 Dose: 4 mg Prednisone (Prednisone) 5 mg PO BID [facility] Sodium Chloride ([place] Nasal [place]) 1 ml SHOAIB QID PRN PRN Reason: congestion Discontinued Medications Acetaminophen (Tylenol) 650 mg PO NOW ONE Stop: 10/04/16 13:11 Last Admin: 10/04/16 14:01 Dose: Not Given Acetaminophen (Tylenol) 650 mg RECTAL NOW ONE Stop: 10/04/16 13:17 Last Admin: 10/04/16 13:22 Dose: 650 mg Piperacillin Sod/Tazobactam (Sod 3.375 gm/ Sodium Chloride) 50 mls @ 100 mls/ hr IV ONETIME ONE Stop: 10/04/16 13:54 Last Admin: 10/04/16 14:02 Dose: 100 mls/hr Piperacillin Sod/Tazobactam (Sod 3.375 gm/ Sodium Chloride) 50 mls @ 100 mls/ hr IV Q6H LUDIN Last Admin: 10/04/16 17:06 Dose: Not Given Magnesium Sulfate 2 gm/ Premix 50 mls @ 50 mls/hr IV ONETIME ONE Stop: 10/04/16 18:05 Last Admin: 10/04/16 17:36 Dose: 50 mls/hr - Exam General: Alert, Oriented HEENT: Mucous Membr. Moist/[place] Neck: Supple Cardiovascular: Regular Rate, Regular Rhythm GI/Abdominal Exam: Normal Bowel Sounds, Soft, Non-Tender, No Organomegaly, No Distention, No Abnormal Bruit, No Mass, Pelvis Stable Extremities: Normal Inspection, Normal Range of Motion, Non-Tender, No Pedal Edema, Normal Capillary Refill Skin: Warm, Dry, Intact Neurological: No New Focal Deficit - Problem List Review Problem List Initiated/Reviewed/Updated: Yes - My Orders Last 24 Hours: My Active Orders 10/04/16 20:13 Albuterol/Ipratropium [DuoNeb 3.0-0.5 MG/3 ML] 3 ml NEB Q6HRRT PRN 10/04/16 20:14 RT Aerosol Therapy [RC] ASDIRECTED 10/05/16 07:35 Max Facial Sinus w Cont [CT] Routine 10/05/16 07:36 Sodium Chloride 0.65% [[place] Nasal [place]] 1 ml SHOAIB QID PRN 10/05/16 09:00 Levothyroxine 75 mcg PO DAILY predniSONE 5 mg PO BID - Plan Plan:: This 71 year old female admitted with fever, abdominal pain and sinusitis. 1. Sinusitis/pneumonia: will continue Zosyn BC pending. Sputum culture ordered. Will continue to monitor. will check CT sinuses. 2. Abdominal pain: chronic and intermittent in nature, no abdominal pain this morning, recent CT and US unremarkable 3. UTI: Most recently on Bactrim. Will hold this for now. 4. CAD: Continue ASA. 5. Hypothyroid: Continue Levothyroxine VTE prophylaxis: Lovenox. DIspo: Pending improvement, 2-3 days.
[2016-10-05] MEDS: Levothyroxine 75 MCG Tab PO SCH (08:09)
[2016-10-05] MEDS: predniSONE 5 MG Tab PO SCH ×2 (08:10→20:12)
[2016-10-05] MEDS: Sodium Chloride 0.9% 1,000 ML IV SCH ×2 (08:12→16:45)
[2016-10-05] MEDS: Morphine 2 MG/ML Syringe IVPUSH PRN ×3 (08:19→18:21)
[2016-10-05] MEDS ORDERED: Enoxaparin 40 MG/0.4 ML Syringe SUBCUT SCH (09:00)
--- NOTE | 2016-10-05 15:08 | CT ---
Maxillofacial CT scan for sinuses./Clinical diagnosis sinusitis Multiple computed tomographic sections of paranasal sinuses were constructed in axial sagittal and c oronal plane. Findings: There is very minimal leftward deviation of the nasal septum. Frontal ethmoid maxillary an d sphenoid sinuses are entirely normally well aerated. Mastoid air cells are normal. Impression: Normal exam
[2016-10-05] MEDS ORDERED: Pantoprazole 40 MG in Sodium Chloride 0.9% 10 ML IVPUSH SCH (15:15)
[2016-10-06] MEDS: Acetaminophen 325 MG Tab PO PRN (00:24)
[2016-10-06] MEDS: Morphine 2 MG/ML Syringe IVPUSH PRN ×6 (00:24→22:06)
[2016-10-06] MEDS: Sodium Chloride 0.9% 1,000 ML IV SCH ×3 (01:06→17:57)
[2016-10-06] MEDS: Piperacillin/Tazobactam 3.375 GM in Sodium Chloride 0.9% 50 ML IV SCH ×2 (02:26→08:42)
[2016-10-06] MEDS ORDERED: diphenhydrAMINE 25 MG Cap PO PRN (04:08)
[2016-10-06] MEDS: Ondansetron 4 MG/2 ML SDV IVPUSH PRN ×2 (04:34→08:53)
[2016-10-06 05:46] LABS: CHLORIDE,CL 112 mmol/L (98-110); SODIUM,NA 136 mmol/L (136-146)
[2016-10-06] MEDS ORDERED: Pantoprazole 40 MG Tab.CR PO SCH (07:30)
[2016-10-06] MEDS: predniSONE 5 MG Tab PO SCH ×2 (08:42→20:03)
[2016-10-06] MEDS: Levothyroxine 75 MCG Tab PO SCH (08:42)
[2016-10-06] MEDS: Pantoprazole 40 MG in Sodium Chloride 0.9% 10 ML IVPUSH SCH ×2 (08:53→20:04)
[2016-10-06] MEDS: Benzonatate 100 MG Cap PO PRN ×2 (10:20→17:57)
[2016-10-06] MEDS: oxyCODONE 5 MG Tab PO PRN (14:34)
[2016-10-06] MEDS ORDERED: Pantoprazole 40 MG Tab.CR PO ONE (14:57)
--- NOTE | 2016-10-06 15:05 | PCM.PN ---
- General Info Date of Service: 10/06/16 Subjective Update: Patient sees that she is feeling a little better than when she was initially admitted. She feels stronger in terms of her muscle strength aspirin the patient. She is still complaining of abdominal pain primarily on by mouth intake diffusely all 4 quadrants. She is not having any constipation and her stool is dark green and pasty. Patient is only taking minimal by mouth at this point in time secondary to pain. She still complaining of sinus type pain despite her CT not showing any signs of sinusitis at this point in time. Patient denying any nausea or vomiting. - Review of Systems General: Reports: Weakness, Appetite Gastrointestinal: Reports: Abdominal Pain - Patient Data Vitals - Most Recent: Last Vital Signs Temp 36.6 C 10/06/16 12:00 Pulse 90 10/06/16 12:00 Resp 16 10/06/16 12:00 BP 147/71 H 10/06/16 12:00 Pulse Ox 95 10/06/16 12:00 Weight - Most Recent: 67.9 kg I&O - Last 24 Hours: Intake & Output 10/05/16 10/06/16 10/06/16 22:59 06:59 14:59 Intake Total 1760 1300 1060 Output Total 800 1100 Balance 685 867 0551 Lab Results Last 24 Hours: Laboratory Results - last 24 hr 10/05/16 10/06/16 10/06/16 Range/Units 17:47 05:17 05:17 WBC 3.27 L (4.0-11.0) K/uL RBC 3.86 L (4.30-5.90) M/uL Hgb 12.0 (12.0-16.0) g/dL Hct 37.0 (36.0-46.0) % MCV 95.9 (80.0-98.0) fL MCH 31.1 (27.0-32.0) pg MCHC 32.4 (31.0-37.0) g/dL RDW Std Deviation 51.4 (28.0-62.0) fl RDW Coeff of Maxim 15 (11.0-15.0) % Plt Count 91 L (150-400) K/uL MPV 10.80 (7.40-12.00) fL Neut % (Auto) 66.1 (48.0-80.0) % Lymph % (Auto) 22.9 (16.0-40.0) % Hale % (Auto) 4.3 (0.0-15.0) % Eos % (Auto) 6.1 (0.0-7.0) % Baso % (Auto) 0.6 (0.0-1.5) % Neut # (Auto) 2.2 (1.4-5.7) K/uL Lymph # (Auto) 0.8 (0.6-2.4) K/uL Hale # (Auto) 0.1 (0.0-0.8) K/uL Eos # (Auto) 0.2 (0.0-0.7) K/uL Baso # (Auto) 0.0 (0.0-0.1) K/uL Nucleated RBC % 0.0 /100WBC Nucleated RBCs # 0 K/uL Sodium 136 (136-146) mmol/L Potassium 4.4 (3.5-5.1) mmol/L Chloride 112 H (98-110) mmol/L Carbon Dioxide 17 L (21-31) mmol/L BUN 9 (6.0-23.0) mg/dL Creatinine 0.7 (0.6-1.5) mg/dL Est Cr Clr Drug Dosing 73.57 mL/min Estimated GFR (MDRD) > 60.0 ml/min Glucose 99 (60-110) mg/dL POC Glucose 73 (60-110) mg/dL Calcium 7.6 L (8.8-10.8) mg/dL Magnesium 1.7 (1.5-2.3) mEq/L Isaias Results Last 24 Hours: Microbiology 10/06/16 10:15 Campylobacter Antigen Assay - Final Stool / Feces NEGATIVE CAMPYLOBACTER AG 10/05/16 14:30 Stool Occult Blood (ISAIAS) - Final Stool / Feces POSITIVE OCCULT BLOOD Med Orders - Current: Current Medications Acetaminophen (Tylenol) 650 mg RECTAL Q4H PRN PRN Reason: Pain (mild 1-3) Acetaminophen (Tylenol) 650 mg PO Q4H PRN PRN Reason: Pain (Mild 1-3)/fever Last Admin: 10/06/16 00:24 Dose: 650 mg Albuterol/Ipratropium (Duoneb 3.0-0.5 Mg/3 Ml) 3 ml NEB Q6HRRT PRN PRN Reason: Wheezing Benzonatate (Tessalon Perles) 100 mg PO TID PRN PRN Reason: Cough Last Admin: 10/06/16 10:20 Dose: 100 mg Diphenhydramine HCl (Benadryl) 25 mg PO Q6H PRN PRN Reason: Itching Last Admin: 10/06/16 04:14 Dose: 25 mg Sodium Chloride (Normal Saline) 1,000 mls @ 125 mls/hr IV STAT [facility] Last Admin: 10/06/16 10:30 Dose: 125 mls/hr Pantoprazole Sodium 40 mg/ (Sodium Chloride) 10 mls @ 300 mls/hr IVPUSH Q12H [facility] Last Admin: 10/06/16 08:53 Dose: 300 mls/hr Levothyroxine Sodium (Levothyroxine) 75 mcg PO DAILY [facility] Last Admin: 10/06/16 08:42 Dose: 75 mcg Morphine Sulfate (Morphine) 2 mg IVPUSH Q4H PRN PRN Reason: Pain Last Admin: 10/06/16 12:55 Dose: 2 mg Ondansetron HCl (Zofran) 4 mg IVPUSH Q4H PRN PRN Reason: Nausea Last Admin: 10/06/16 08:53 Dose: 4 mg Oxycodone HCl (Oxycodone) 5 mg PO Q4H PRN PRN Reason: Abdominal Pain Last Admin: 10/06/16 14:34 Dose: 5 mg Prednisone (Prednisone) 5 mg PO BID [facility] Last Admin: 10/06/16 08:42 Dose: 5 mg Sodium Chloride (Kevil Nasal [place]) 1 ml SHOAIB QID PRN PRN Reason: congestion Last Admin: 10/06/16 10:20 Dose: 1 spray Discontinued Medications Acetaminophen (Tylenol) 650 mg PO NOW ONE Stop: 10/04/16 13:11 Last Admin: 10/04/16 14:01 Dose: Not Given Acetaminophen (Tylenol) 650 mg RECTAL NOW ONE Stop: 10/04/16 13:17 Last Admin: 10/04/16 13:22 Dose: 650 mg Enoxaparin Sodium (Lovenox) 40 mg SUBCUT DAILY [facility] Last Admin: 10/05/16 08:15 Dose: 40 mg Piperacillin Sod/Tazobactam (Sod 3.375 gm/ Sodium Chloride) 50 mls @ 100 mls/ hr IV ONETIME ONE Stop: 10/04/16 13:54 Last Admin: 10/04/16 14:02 Dose: 100 mls/hr Sodium Chloride (Normal Saline) 500 mls @ 999 mls/hr IV .BOLUS LUDIN Last Admin: 10/04/16 17:00 Dose: 999 mls/hr Piperacillin Sod/Tazobactam (Sod 3.375 gm/ Sodium Chloride) 50 mls @ 100 mls/ hr IV Q6H LUDIN Last Admin: 10/04/16 17:06 Dose: Not Given Piperacillin Sod/Tazobactam (Sod 3.375 gm/ Sodium Chloride) 50 mls @ 100 mls/ hr IV Q6H [facility] Last Admin: 10/06/16 08:42 Dose: 100 mls/hr Magnesium Sulfate 2 gm/ Premix 50 mls @ 50 mls/hr IV ONETIME ONE Stop: 10/04/16 18:05 Last Admin: 10/04/16 17:36 Dose: 50 mls/hr Pantoprazole Sodium 40 mg/ (Sodium Chloride) 10 mls @ 300 mls/hr IVPUSH Q12H [facility] Last Admin: 10/05/16 15:44 Dose: 300 mls/hr Pantoprazole Sodium (Protonix) 40 mg PO ACBREAKFAST [facility] Pantoprazole Sodium (Protonix) 40 mg PO ONETIME ONE Stop: 10/06/16 14:58 - Exam General: Alert, Oriented, Cooperative, Mild Distress Lungs: Clear to Auscultation Cardiovascular: Regular Rate GI/Abdominal Exam: Soft, Tender, Other (Patient is complaining of abdominal pain all 4 quadrants upon palpation had any rebound tenderness) Extremities: Normal Inspection - Problem List Review Problem List Initiated/Reviewed/Updated: Yes - My Orders Last 24 Hours: My Active Orders 10/06/16 10:08 PT Evaluation and Treatment [CONS] Routine 10/06/16 10:09 Benzonatate [Tessalon Perles] 100 mg PO TID PRN 10/06/16 10:15 CULTURE STOOL + CAMPY+SHIGATOX [RM] Stat H PYLORI STOOL ANTIGEN [MREF] Routine 10/06/16 11:54 oxyCODONE 5 mg PO Q4H PRN 10/06/16 11:55 Weigher And Crusher Discontinue [Cardiac Monitoring Discontinue] [RC] Click To Edit 10/06/16 14:24 Remove Rios Catheter [Urinary Catheter Removal] [RC] Per Unit Routine - Plan Plan:: This 71 year old female admitted with fever, abdominal pain and sinusitis CT of sinuses does not show any complications at the present moment, abdominal imaging does show cholelithiasis without cholecystitis. 1. Sinusitis/pneumonia: At this point in time the patient's CT sinuses did not show any abnormalities, her imaging of her chest x-ray did not show any pneumonia type picture she is not having any wheezing any fremitus or any hypoxia at the present moment. At this point in time we do not feel that the patient requires antibiotics and we should be discontinuing her Zosyn . 2. Abdominal pain: chronic and intermittent in nature, no abdominal pain this morning, recent CT and US unremarkable -Abdominal pain seems to be present with the patient's by mouth intake as well the patient does have a positive stool occult. She'll be doing stool studies along with stool H. pylori. Possibly considering EGD if the patient acutely decompensates or acutely gets worse or as outpatient EGD would be recommended. -Oxycodone oral 5 mg when necessary every 4 hours 3. UTI: Most recently on Bactrim. -Will hold this for now as patient received Bactrim outpatient although she did not completed secondary to poor by mouth, as well as she received 7 total doses of Zosyn IV. 4. CAD: Continue ASA. 5. Hypothyroid: Continue Levothyroxine 6. Fatigue/weakness/ambulation difficulties -She'll have PT assess and evaluate the patient in helping with strengthening and ambulation. 7. Nonproductive cough -Tessalon Perles 100 mg when necessary
[2016-10-07] MEDS: Sodium Chloride 0.9% 1,000 ML IV SCH ×2 (02:15→10:32)
[2016-10-07] MEDS: Ondansetron 4 MG/2 ML SDV IVPUSH PRN ×3 (04:10→15:16)
[2016-10-07] MEDS: Morphine 2 MG/ML Syringe IVPUSH PRN ×2 (04:11→10:33)
[2016-10-07 05:39] LABS: CHLORIDE,CL 111 mmol/L (98-110); SODIUM,NA 141 mmol/L (136-146)
[2016-10-07] MEDS: oxyCODONE 5 MG Tab PO PRN ×2 (07:50→14:19)
[2016-10-07] MEDS: predniSONE 5 MG Tab PO SCH (08:16)
[2016-10-07] MEDS: Levothyroxine 75 MCG Tab PO SCH (08:16)
[2016-10-07] MEDS: Pantoprazole 40 MG in Sodium Chloride 0.9% 10 ML IVPUSH SCH (08:17)
[2016-10-07] MEDS ORDERED: Sucralfate Suspension 1 GM/10 ML Cup PO SCH (11:30)
--- NOTE | 2016-10-07 14:06 | PCM.CONS ---
H&P History of Present Illness - General Date of Service: 10/07/16 Admit Problem/Dx: Admission Diagnosis/Problem Admission Diagnosis/Problem Abdominal pain, nausea Source of Information: Patient History Limitations: Reports: No Limitations - History of Present Illness Initial Comments - Free Text/Narative: Patient is a 71-year-old female admitted through the emergency room complaining of nonspecific abdominal pain. She was in the emergency room twice on October 04. She was noticed to be febrile. She has been treated empirically for a urinary tract infection and sinusitis. There is no evidence of sinusitis on CT scan. She has had nausea, no real vomiting. Denies any hematemesis. No history of peptic ulcer disease. I have been asked to see her for her abdominal pain, particularly epigastric. She does note more discomfort after eating meals. No unexplained weight loss. She states this is been going on for about a month but has been worse this past week. No recent history of endoscopic or radiologic evaluation of her GI tract. She has had a CT scan of the abdomen did suggest cholelithiasis. This could not be confirmed ultrasonic graphic lead. There is no evidence of bowel obstruction or bowel. She also states her appetite is poor, but gradually improving. Onset of Symptoms: Reports: Gradual Duration of Symptoms: Reports: Chronic, Colic, Waxing/Waning Location: Reports: Abdomen Quality: Reports: Pressure, Throbbing Severity: Moderate Improves with: Reports: None Worsens with: Reports: Eating Context: Reports: Sick Contact Associated Symptoms: Reports: Fever/Chills, Loss of Appetite, Nausea/Vomiting, Weakness. Denies: Shortness of Breath, Syncope Abdomen Pain Score (Numeric/FACES): 7 - Related Data Allergies/Adverse Reactions: Allergies Allergy/AdvReac Type Severity Reaction Status Date / Time No Known Allergies Allergy Verified 10/04/16 13:04 Home Medications: Home Meds Levothyroxine 75 mcg PO DAILY 10/08/13 [History] oxyCODONE HCl/Acetaminophen [Endocet 10-325 MG] 10 - 325 tab PO Q4HR PRN [History] predniSONE [Prednisone] 5 mg PO BID 07/23/15 [History] Aspirin 81 mg PO DAILY 10/04/16 [History] Cimetidine 200 mg PO ASDIRECTED PRN 10/04/16 [History] Fish Oil/Bazine-3 Fatty Acids [Fish Oil 1,000 MG] 1 tab PO DAILY 10/04/16 [ History] Flaxseed Oil [Flaxseed] 0 mg PO DAILY 10/04/16 [History] Magnesium 0 mg PO DAILY 10/04/16 [History] Multivit-Min/FA/Lycopene/Lut [Centrum Silver Tablet] 1 tab PO DAILY 10/04/16 [ History] Ondansetron [Zofran ODT] 4 mg SL Q4H PRN #16 tab.dis 10/04/16 [Rx] Sulfamethoxazole/Trimethoprim [Septra DS] 800 mg PO BID 10/04/16 [History] Past Medical History - Past Health History Medical/Surgical History: Denies Medical/Surgical History HEENT History: Reports: None Cardiovascular History: Reports: CAD, CO, Stents. Denies: Afib, Blood Clots/VTE /DVT Other Cardiovascular History: stent placement due to heart attack 10 years ago Respiratory History: Reports: None. Denies: Asthma, COPD Gastrointestinal History: Reports: None, Other (See Below). Denies: Cholelithiasis, Gastritis, Helicobacter Pylori Other Gastrointestinal History: chronic abdominal pain, of unknown cause per son Genitourinary History: Reports: None. Denies: Acute Renal Failure RECEIVING CHECKER History: Reports: Musculoskeletal History: Reports: Osteoarthritis Neurological History: Reports: None. Denies: CVA, TIA Psychiatric History: Reports: None Endocrine/Metabolic History: Reports: Hypothyroidism, Obesity/BMI 30+ Other Endocrine/Metabolic History: pt is on on synthroid Hematologic History: Reports: None Immunologic History: Reports: None Oncologic (Cancer) History: Reports: None Dermatologic History: Reports: None - Infectious Disease History Infectious Disease History: Reports: Chicken Pox, Measles, Mumps - Past Surgical History Head Surgeries/Procedures: Reports: None Cardiovascular Surgical History: Reports: Coronary Artery Stent Female Surgical History: Reports: Tubal Ligation Social & Family History - Family History Family Medical History: Unobtainable Neurological: Reports: CVA Other Neurological Family History: brother - Tobacco Use Smoking Status *Q: Current Every Day Smoker Years of Tobacco use: 50 Packs/Tins Daily: 1 Used Tobacco, but Quit: No Second Hand Smoke Exposure: No - Caffeine Use Caffeine Use: Reports: Coffee, Soda Caffeine Use Comment: 1cups/day - Alcohol Use Days Per Week of Alcohol Use: 0 - Recreational Drug Use Recreational Drug Use: No - Living Situation & Occupation Living situation: Reports: Occupation: Retired H&P Review of Systems - Review of Systems: Review Of Systems: See Below General: Reports: Fever, Weakness, Decreased Appetite. Denies: Chills, Weight Loss, Weight Gain HEENT: Reports: No Symptoms Pulmonary: Denies: Shortness of Breath, Wheezing Cardiovascular: Denies: Chest Pain Gastrointestinal: Reports: Abdominal Pain, Anorexia, Diarrhea, Decreased Appetite, Flatus, Nausea. Denies: Black Stool, Bloody Stool, Constipation, Difficulty Swallowing, Distension, Vomiting Genitourinary: Reports: Dysuria Musculoskeletal: Reports: No Symptoms Skin: Reports: No Symptoms Psychiatric: Reports: Anxiety Neurological: Denies: Confusion, Dizziness Hematologic/Lymphatic: Denies: Easy Bleeding, Easy Bruising Immunologic: Reports: No Symptoms Exam - Exam Exam: See Below - Vital Signs Vital Signs: Last Vital Signs Temp 98.1 F 10/07/16 12:00 Pulse 78 10/07/16 12:00 Resp 19 10/07/16 12:00 BP 128/67 10/07/16 12:00 Pulse Ox 95 10/07/16 12:00 Weight: 150 lb 9.211 oz - Exam General: Alert, Oriented, Cooperative, Mild Distress HEENT: Conjunctiva Clear, EACs Clear, EOMI, Hearing Intact, Pupils Equal, Pupils Reactive. No: Scleral Icterus Neck: Supple, Trachea Midline Lungs: Clear to Auscultation, Normal Respiratory Effort. No: Decreased Breath Sounds, Wheezing Cardiovascular: Regular Rate, Regular Rhythm, Normal S1, Normal S2. No: Tachycardia, Systolic Murmur GI/Abdominal Exam: Normal Bowel Sounds, Soft, Non-Tender, No Distention, No Mass. No: Guarding, Rigid, Rebound (Female) Exam: Normal External Exam Rectal (Female) Exam: Deferred, Heme + Stool (per lab today) Back Exam: Normal Inspection Extremities: Normal Inspection Peripheral Pulses: 3+: Posterior Tibial (L), Posterior Tibial (R), Dorsalis Pedis (L), Dorsalis Pedis (R) Skin: Warm, Dry, Intact Neurological: Cranial Nerves Intact, Reflexes Equal Bilateral Psychiatric: Alert, Normal Affect, Normal Mood - Patient Data Lab Results Last 24 hrs: Laboratory Results - last 24 hr 10/07/16 10/07/16 10/07/16 Range/Units 04:45 04:45 10:12 WBC 2.40 L (4.0-11.0) K/uL RBC 3.83 L (4.30-5.90) M/uL Hgb 12.0 (12.0-16.0) g/dL Hct 36.8 (36.0-46.0) % MCV 96.1 (80.0-98.0) fL MCH 31.3 (27.0-32.0) pg MCHC 32.6 (31.0-37.0) g/dL RDW Std Deviation 51.1 (28.0-62.0) fl RDW Coeff of Maxim 14 (11.0-15.0) % Plt Count 85 L (150-400) K/uL MPV 11.50 (7.40-12.00) fL Add Manual Diff YES Neutrophils % (Manual) 13 L (48.0-80.0) % Band Neutrophils % 7 % Lymphocytes % (Manual) 71 H (16.0-40.0) % Monocytes % (Manual) 4 (0.0-15.0) % Eosinophils % (Manual) 5 (0.0-7.0) % Nucleated RBC % 0.0 /100WBC Absolute Seg Neuts 0.3 Band Neutrophils # 0.2 Lymphocytes # (Manual) 1.7 Monocytes # (Manual) 0.1 Eosinophils # (Manual) 0.1 Nucleated RBCs # 0 K/uL Lactate 1.0 (0.20-2.00) mmol/L Sodium 141 (136-146) mmol/L Potassium 4.3 (3.5-5.1) mmol/L Chloride 111 H (98-110) mmol/L Carbon Dioxide 23 (21-31) mmol/L BUN 8 (6.0-23.0) mg/dL Creatinine 0.7 (0.6-1.5) mg/dL Est Cr Clr Drug Dosing 73.57 mL/min Estimated GFR (MDRD) > 60.0 ml/min Glucose 105 (60-110) mg/dL Calcium 8.1 L (8.8-10.8) mg/dL Result Diagrams: 10/07/16 04:45 10/07/16 04:45 Isaias Results Last 24 hrs: Microbiology 10/06/16 10:15 Campylobacter Antigen Assay - Final Stool / Feces NEGATIVE CAMPYLOBACTER AG - Final NEGATIVE FOR SHIGA TOXIN 1 - Final NEGATIVE FOR SHIGA TOXIN 2 10/06/16 10:15 Helicobacter pylori Antigen - Final Stool / Feces Imaging Impressions Last 24 hrs: All reports personally reviewed. No evidence of biliary tract pathology, bowel distension or apparent obstruction. Consult PN Assessment/Plan Procedures: Procedures AIRWAY INHALATION TREATMENT (07/23/15) ANTINUCLEAR ANTIBODIES (10/14/13) ASSAY OF FREE THYROXINE (07/23/15) ASSAY OF LACTIC ACID (07/23/15) ASSAY OF LIPASE (10/04/16) ASSAY OF MAGNESIUM (07/23/15) ASSAY THYROID STIM HORMONE (07/23/15) BLOOD CULTURE FOR BACTERIA (07/23/15) C-REACTIVE PROTEIN (10/14/13) CHEST X-RAY 1 VIEW FRONTAL (07/23/15) COMPLETE CBC W/AUTO DIFF WBC (10/04/16) COMPREHEN METABOLIC PANEL (10/04/16) CT ABD & PELV W/CONTRAST (10/04/16) EMERGENCY DEPT VISIT (10/04/16) EMERGENCY DEPT VISIT (07/23/15) EMERGENCY DEPT VISIT (10/08/13) EMERGENCY DEPT VISIT (10/08/13) EVALUATE PT USE OF INHALER (07/23/15) HYDRATE IV INFUSION ADD-ON (10/04/16) LIPID PANEL (08/13/13) MICROBE SUSCEPTIBLE ISAIAS (07/23/15) MRI NECK SPINE W/O DYE (10/08/13) OFFICE/OUTPATIENT VISIT EST (08/18/15) OFFICE/OUTPATIENT VISIT EST (03/13/15) RBC SED RATE AUTOMATED (06/11/14) RHEUMATOID FACTOR TEST QUAL (10/14/13) ROUTINE VENIPUNCTURE (10/04/16) THER/PROPH/DIAG INJ IV PUSH (10/04/16) TX/PRO/DX INJ NEW DRUG ADDON (10/04/16) URINALYSIS AUTO W/SCOPE (10/04/16) URINE BACTERIA CULTURE (07/23/15) URINE CULTURE/COLONY COUNT (07/23/15) X-RAY EXAM HIP UNI 2-3 VIEWS (07/23/15) (1) Thrombocytopenia SNOMED Code(s): 186479565 Code(s): D69.6 - THROMBOCYTOPENIA, UNSPECIFIED Priority: Medium Current Visit: Yes (2) Neutropenia SNOMED Code(s): 301734536 Code(s): D70.9 - NEUTROPENIA, UNSPECIFIED Priority: Medium Current Visit : Yes (3) Abdominal pain SNOMED Code(s): 91343434 Code(s): R10.9 - UNSPECIFIED ABDOMINAL PAIN Priority: Medium Current Visit: Yes Qualifiers: Abdominal location: epigastric Qualified Code(s): R10.13 - Epigastric pain (4) Dehydration SNOMED Code(s): 32181637 Code(s): E86.0 - DEHYDRATION Current Visit: No Problem List Initiated/Reviewed/Updated: Yes Plan: Patient is a bit of a poor historian. I do not see any objective evidence of an acute abdominal process. She may have a component of gastritis and I note she has been on Prednisone for her arthritis. Her stools are reportedly Heme + . She has become neutropenic and thrombocytopenic with no apparent explanation. Regarding her heme positive stools, I feel this could be worked up on an OP basis after we resolve the neutropenia, thrombocytopenia and evaluate he significant lymphocytosis.
[2016-10-07 16:11] VITALS: BP 179/77
--- NOTE | 2016-10-10 09:38 | PCM.DCSUM1 ---
Discharge Summary - Hospital Course Free Text/Narrative:: Discharge Summary Date of admission: 10/04/2016 Date of discharge: 10/07/2016 Admitting diagnosis: #1. sinusitis versus possible early pneumonia #2. UTI recently on Bactrim currently holding #3. past medical history of coronary artery disease #4. past medical history of hypothyroidism #5. Discharge diagnoses: #1. severe abdominal pain chronic in nature primarily triggered right after eating likely etiology gastric ulcer versus mesenteric ischemia outpatient assessment required #2. UTI- Bactrim held patient did receive 7 total doses of IV Zosyn #3. past medical history of hypothyroidism #4.past medical history of coronary artery disease #5. Consultations: Jarad Baldwin General surgery Procedures: None Hospitalization course: she was admitted on 10/04/2016 secondary to acute on chronic abdominal pain. along with complaints of headache and sinus like pressure. Initially it was thought that perhaps this was an early onset pneumonia versus sinusitis however upon imaging including CT of the sinuses no acute process was appreciated. As the patient's stay in the hospital progressed it was noted that the patient's abdominal pain was primarily related to by mouth intake. Patient would complain of severe 8 out of 10 abdominal pain primarily mid epigastric and bilateral upper quadrant. Patient was started on a PPIfor her abdominal pain as well as IV pain medication as needed. Along with this it was noted the patient did have a UTI she was prescribed Bactrim however it was held and the patient was put on Zosyn for which she received a total of 7 doses. Patient did progressively get better and felt stronger. We'll consult Dr. Baldwin for a possible EGD inpatient. However Dr. Baldwin felt that this could be done outpatient as the patient was on the appropriate initial intervention. And that the EGD as far as diagnosis would not alter treatment as far as a gastric ulcers concern. He had wanted to do an abdominal CT for mesenteric ischemia however the patient felt better enough that she insists on going home and following up with her primary care physician. Disposition on discharge:home Condition on discharge: patient was stable able to intake by mouth was able to ambulate did not have diarrhea constipation and insisted on being discharged Discharge medications: continuation of home medication along with pantoprazole Follow-up instructions: follow-up with Dr. Baldwin outpatient as well as primary care physician outpatient - Discharge Data Discharge Date: 10/07/16 Discharge Disposition: Home, Self-Care 01 Condition: Stable - Patient Summary/Data Consults: Consultations 10/06/16 10:08 PT Evaluation and Treatment [CONS] Routine 10/07/16 11:16 Consult to Physician [CONS] Routine - Patient Instructions Diet: Regular Diet as Tolerated Activity: As Tolerated, Rest and Relax Today Driving: Do Not Drive Showering/Bathing: May Shower Notify Provider of: Fever, Increased Pain, Swelling and Redness, Drainage, Nausea and/or Vomiting - Discharge Plan Prescriptions/Med Rec: Pantoprazole Sodium [Protonix] 40 mg PO DAILY #30 tablet. Sucralfate [Carafate] 1 gm PO QIDACANDBED #60 cup Home Medications: Home Meds Levothyroxine 75 mcg PO DAILY 10/08/13 [History] oxyCODONE HCl/Acetaminophen [Endocet 10-325 MG] 10 - 325 tab PO Q4HR PRN [History] predniSONE [Prednisone] 5 mg PO BID 07/23/15 [History] Aspirin 81 mg PO DAILY 10/04/16 [History] Cimetidine 200 mg PO ASDIRECTED PRN 10/04/16 [History] Fish Oil/Riley-3 Fatty Acids [Fish Oil 1,000 MG] 1 tab PO DAILY 10/04/16 [ History] Flaxseed Oil [Flaxseed] 0 mg PO DAILY 10/04/16 [History] Magnesium 0 mg PO DAILY 10/04/16 [History] Multivit-Min/FA/Lycopene/Lut [Centrum Silver Tablet] 1 tab PO DAILY 10/04/16 [ History] Ondansetron [Zofran ODT] 4 mg SL Q4H PRN #16 tab.dis 10/04/16 [Rx] Sulfamethoxazole/Trimethoprim [Septra DS] 800 mg PO BID 10/04/16 [History] Pantoprazole Sodium [Protonix] 40 mg PO DAILY #30 tablet. 10/07/16 [Rx] Sucralfate [Carafate] 1 gm PO QIDACANDBED #60 cup 10/07/16 [Rx] Patient Handouts: Abdominal Pain, Adult, Pantoprazole tablets, Sucralfate oral suspension Referrals: Mikel Baldwin MD [Physician] - 11/01/16 2:30 pm Robert Haynes MD [Physician] - 10/14/16 8:00 am - Patient Data Vitals - Most Recent: Last Vital Signs Temp 36.4 C 10/07/16 16:00 Pulse 75 10/07/16 16:00 Resp 20 10/07/16 16:00 BP 179/77 H 10/07/16 16:00 Pulse Ox 97 10/07/16 16:00 Weight - Most Recent: 68.3 kg Med Orders - Current: Current Medications Discontinued Medications Acetaminophen (Tylenol) 650 mg PO NOW ONE Stop: 10/04/16 13:11 Last Admin: 10/04/16 14:01 Dose: Not Given Acetaminophen (Tylenol) 650 mg RECTAL NOW ONE Stop: 10/04/16 13:17 Last Admin: 10/04/16 13:22 Dose: 650 mg Acetaminophen (Tylenol) 650 mg RECTAL Q4H PRN PRN Reason: Pain (mild 1-3) Acetaminophen (Tylenol) 650 mg PO Q4H PRN PRN Reason: Pain (Mild 1-3)/fever Last Admin: 10/06/16 00:24 Dose: 650 mg Albuterol/Ipratropium (Duoneb 3.0-0.5 Mg/3 Ml) 3 ml NEB Q6HRRT PRN PRN Reason: Wheezing Benzonatate (Tessalon Perles) 100 mg PO TID PRN PRN Reason: Cough Last Admin: 10/06/16 17:57 Dose: 100 mg Diphenhydramine HCl (Benadryl) 25 mg PO Q6H PRN PRN Reason: Itching Last Admin: 10/06/16 04:14 Dose: 25 mg Enoxaparin Sodium (Lovenox) 40 mg SUBCUT DAILY LUDIN Last Admin: 10/05/16 08:15 Dose: 40 mg Sodium Chloride (Normal Saline) 1,000 mls @ 125 mls/hr IV STAT LUDIN Last Admin: 10/07/16 10:32 Dose: 125 mls/hr Piperacillin Sod/Tazobactam (Sod 3.375 gm/ Sodium Chloride) 50 mls @ 100 mls/ hr IV ONETIME ONE Stop: 10/04/16 13:54 Last Admin: 10/04/16 14:02 Dose: 100 mls/hr Sodium Chloride (Normal Saline) 500 mls @ 999 mls/hr IV .BOLUS LUDIN Last Admin: 10/04/16 17:00 Dose: 999 mls/hr Piperacillin Sod/Tazobactam (Sod 3.375 gm/ Sodium Chloride) 50 mls @ 100 mls/ hr IV Q6H [facility] Last Admin: 10/04/16 17:06 Dose: Not Given Piperacillin Sod/Tazobactam (Sod 3.375 gm/ Sodium Chloride) 50 mls @ 100 mls/ hr IV Q6H [facility] Last Admin: 10/06/16 08:42 Dose: 100 mls/hr Magnesium Sulfate 2 gm/ Premix 50 mls @ 50 mls/hr IV ONETIME ONE Stop: 10/04/16 18:05 Last Admin: 10/04/16 17:36 Dose: 50 mls/hr Pantoprazole Sodium 40 mg/ (Sodium Chloride) 10 mls @ 300 mls/hr IVPUSH Q12H [facility] Last Admin: 10/05/16 15:44 Dose: 300 mls/hr Pantoprazole Sodium 40 mg/ (Sodium Chloride) 10 mls @ 300 mls/hr IVPUSH Q12H [facility] Last Admin: 10/07/16 08:17 Dose: 300 mls/hr Levothyroxine Sodium (Levothyroxine) 75 mcg PO DAILY [facility] Last Admin: 10/07/16 08:16 Dose: 75 mcg Morphine Sulfate (Morphine) 2 mg IVPUSH Q4H PRN PRN Reason: Pain Last Admin: 10/07/16 10:33 Dose: 2 mg Ondansetron HCl (Zofran) 4 mg IVPUSH Q4H PRN PRN Reason: Nausea Last Admin: 10/07/16 15:16 Dose: 4 mg Oxycodone HCl (Oxycodone) 5 mg PO Q4H PRN PRN Reason: Abdominal Pain Last Admin: 10/07/16 14:19 Dose: 5 mg Pantoprazole Sodium (Protonix) 40 mg PO ACBREAKFAST [facility] Pantoprazole Sodium (Protonix) 40 mg PO ONETIME ONE Stop: 10/06/16 14:58 Prednisone (Prednisone) 5 mg PO BID [facility] Last Admin: 10/07/16 08:16 Dose: 5 mg Sodium Chloride ([place] Nasal [place]) 1 ml SHOAIB QID PRN PRN Reason: congestion Last Admin: 10/06/16 10:20 Dose: 1 spray Sucralfate (Carafate) 1 gm PO Q6H [facility] Last Admin: 10/07/16 11:27 Dose: 1 gm *Q Meaningful Use (DIS) - VTE *Q VTE Criteria *Q: - Stroke *Q Stroke Criteria *Q: - AMI *Q AMI Criteria *Q:
== END 2016-10-07 17:42 | disposition home or self-care (01) | DRG 872 ==
LOC: MW.ED 12:59 → MW.ICU 15:32 → MW.MS 10-07 14:48
PROVIDERS: ADMIT Internal Medicine; ATTEND Internal Medicine
DX: A41.9 Sepsis, unspecified organism (principal); N39.0 Urinary tract infection, site not specified; J32.9 Chronic sinusitis, unspecified; R10.32 Left lower quadrant pain; J01.00 Acute maxillary sinusitis, unspecified; D69.6 Thrombocytopenia, unspecified; D70.9 Neutropenia, unspecified; R50.9 Fever, unspecified; E03.9 Hypothyroidism, unspecified; I25.10 Atherosclerotic heart disease of native coronary artery without angina pectoris; R51 Headache; K80.20 Calculus of gallbladder without cholecystitis without obstruction; E86.0 Dehydration; F17.200 Nicotine dependence, unspecified, uncomplicated; Z95.5 Presence of coronary angioplasty implant and graft; Z79.899 Other long term (current) drug therapy; G89.29 Other chronic pain; R11.0 Nausea; I25.2 Old myocardial infarction; M19.90 Unspecified osteoarthritis, unspecified site; F17.210 Nicotine dependence, cigarettes, uncomplicated; Z98.51 Tubal ligation status; Z79.82 Long term (current) use of aspirin; R10.9 Unspecified abdominal pain
CPT/HCPCS: 36415; 71010; 76705; 80053; 81001; 83605; 83735; 84484; 85025; 87040 ×2; 93005; 96365; 99285; A9270; J2543; J7040; J7050; 70486; 70486-26; 74177; 74177-26; 80048; 82272; 82962; 83630; 83690; 87046; 87324; 87338; 87804; 87899; 96361; 96374; 96375; 97161-GP; 99283; 99284-25; C9113; J1650; J1885; J2060; J2270; J2405; J3475; Q9967

== ENCOUNTER → 2016-11-07 | Day surgery (SDC) | payer MEDICARE, BC ==
[~2016-11-07] MED LIST: Lactated Ringers 1,000 ML IV SCH; Propofol 200 MG/20 ML SDV ONE
[2016-11-07 11:24] VITALS: BP 148/76
--- NOTE | 2016-11-07 12:29 | PCM.PREANE ---
Preanesthetic Assessment - Anesthesia/Transfusion/Family Hx Anesthesia History: Prior Anesthesia Without Reaction Family History of Anesthesia Reaction: No Transfusion History: No Prior Transfusion(s) - Review of Systems General: No Symptoms Pulmonary: No Symptoms Cardiovascular: No Symptoms - Physical Assessment NPO Status Date: 11/06/16 NPO Status Time: 22:30 O2 Sat by Pulse Oximetry: 99 Respiratory Rate: 16 Vital Signs: Last Vital Signs Temp 36.4 C 11/07/16 11:24 Pulse 78 11/07/16 11:24 Resp 16 11/07/16 11:24 BP 148/76 H 11/07/16 11:24 Pulse Ox 99 11/07/16 11:24 Height: 1.63 m Weight: 62.596 kg ASA Class: 3 Mental Status: Alert & Oriented x3 Airway Class: Mallampati = 2 Dentition: Reports: Dentures ROM/Head Extension: Full Lungs: Clear to Auscultation, Normal Respiratory Effort Cardiovascular: Regular Rate, Regular Rhythm - Allergies Allergies/Adverse Reactions: Allergies Allergy/AdvReac Type Severity Reaction Status Date / Time No Known Allergies Allergy Verified 11/02/16 13:59 - Acknowledgements Anesthesia Type Planned: MAC Pt an Appropriate Candidate for the Planned Anesthesia: Yes Alternatives and Risks of Anesthesia Discussed w Pt/Guardian: Yes Pt/Guardian Understands and Agrees with Anesthesia Plan: Yes Additional Comments: PMH: cervical stenosis, thyroid replacement, IBS, RA, chronic pain, CAD with AMI and stents placed in 1999. is on aspirin last dose this am. 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: Musculoskeletal History: Reports: RA Other Musculoskeletal History: cervical spinal stenosis Neurological History: Reports: None Psychiatric History: Reports: None Endocrine/Metabolic History: Reports: Hypothyroidism Other Endocrine/Metabolic History: pt is on on synthroid Hematologic History: Reports: None Immunologic History: Reports: None Oncologic (Cancer) History: Reports: None Dermatologic History: Reports: None - Infectious Disease History Infectious Disease History: Reports: Chicken Pox, Measles, Mumps - Past Surgical History Head Surgeries/Procedures: Reports: None HEENT Surgical History: Reports: Cataract Surgery, Tonsillectomy Cardiovascular Surgical History: Reports: Coronary Artery Stent Other Cardiovascular Surgeries/Procedures: angioplasty with placement of 2 stents, 17 years ago, denies current chest pain or SOB GI Surgical History: Reports: None Female Surgical History: Reports: Tubal Ligation Musculoskeletal Surgical History: Reports: None - SUBSTANCE USE Smoking Status *Q: Current Every Day Smoker Tobacco Use Within Last Twelve Months: Cigarettes Second Hand Smoke Exposure: No Days Per Week of Alcohol Use: 0 Recreational Drug Use History: No - HOME MEDS Home Medications: Home Meds Levothyroxine 75 mcg PO DAILY 10/08/13 [History] oxyCODONE HCl/Acetaminophen [Endocet 10-325 MG] 10 - 325 tab PO Q4HR PRN [History] predniSONE [Prednisone] 7.5 mg PO BID 07/23/15 [History] Aspirin 81 mg PO DAILY 10/04/16 [History] Multivit-Min/FA/Lycopene/Lut [Centrum Silver Tablet] 1 tab PO DAILY 10/04/16 [ History] Ondansetron [Zofran ODT] 4 mg SL Q4H PRN #16 tab.dis 10/04/16 [Rx] Pantoprazole Sodium [Protonix] 40 mg PO DAILY #30 tablet. 10/07/16 [Rx] Sucralfate [Carafate] 1 gm PO QIDACANDBED #60 cup 10/07/16 [Rx] Fluticasone Propionate [Flonase Allergy Relief] 1 - 2 spray NASBOTH DAILY [History] - CURRENT (IN HOUSE) MEDS Current Meds: Current Medications Lactated Ringer's (Ringers, Lactated) 1,000 mls @ 125 mls/hr IV ASDIRECTED LUDIN Last Admin: 11/07/16 11:10 Dose: 125 mls/hr Discontinued Medications Propofol (Diprivan 20 Ml) Confirm Administered Dose 600 mg .ROUTE .STK-MED ONE Stop: 11/07/16 10:25
== END ==
LOC: MW.SDS 10:55
PROVIDERS: ATTEND Surgery
DX: Z53.8 Procedure and treatment not carried out for other reasons (principal); E03.9 Hypothyroidism, unspecified; Z79.899 Other long term (current) drug therapy; Z79.82 Long term (current) use of aspirin; Z95.5 Presence of coronary angioplasty implant and graft; Z98.890 Other specified postprocedural states; Z98.51 Tubal ligation status; F17.210 Nicotine dependence, cigarettes, uncomplicated; Z72.0 Tobacco use
CPT/HCPCS: J2704; J7120

== ENCOUNTER 2017-02-23 09:25 | Day surgery (SDC) | payer MEDICARE, BC ==
[~2017-02-23 09:25] MED LIST changes: -Propofol 200 MG/20 ML SDV ONE; +ceFAZolin 1 GM in Premix Bag 1 BAG IV ONE
--- NOTE | 2017-02-23 09:51 | PCM.PREANE ---
Preanesthetic Assessment - Anesthesia/Transfusion/Family Hx Anesthesia History: Prior Anesthesia Without Reaction Transfusion History: No Prior Transfusion(s) - Review of Systems General: No Symptoms Pulmonary: No Symptoms Cardiovascular: No Symptoms Gastrointestinal: No Symptoms Neurological: No Symptoms Other: Reports: None - Physical Assessment Height: 5 ft 4 in Weight: 61.689 kg ASA Class: 3 Mental Status: Alert & Oriented x3 Airway Class: Mallampati = 2 Dentition: Reports: Dentures Thyro-Mental Finger Breadths: 3 Mouth Opening Finger Breadths: 3 ROM/Head Extension: Limited/Partial (cervical spinal stenosis) Lungs: Clear to Auscultation, Normal Respiratory Effort Cardiovascular: Regular Rate, Regular Rhythm - Allergies Allergies/Adverse Reactions: Allergies Allergy/AdvReac Type Severity Reaction Status Date / Time No Known Allergies Allergy Verified 02/17/17 13:58 - Anesthesia Plan Free Text/Narrative:: Echo 01/13 - Normal LV function, EF 55%. Myocardial Perfusion Study 01/13 - NO evidence of ischemia Pt denies any further sign or symptoms of TX since stents were placed in early . Explained possible risks including: CVA, TX, , etc, pt understands and wishes to proceed at this time. - Acknowledgements Anesthesia Type Planned: General Anesthesia Pt an Appropriate Candidate for the Planned Anesthesia: Yes Alternatives and Risks of Anesthesia Discussed w Pt/Guardian: Yes Pt/Guardian Understands and Agrees with Anesthesia Plan: Yes PreAnesthesia Questionnaire - Past Health History Medical/Surgical History: Denies Medical/Surgical History HEENT History: Reports: Cataract Other HEENT History: wears glasses, has upper denture Cardiovascular History: Reports: CAD, TX Other Cardiovascular History: denies current chest pain, SOB and leg swelling Respiratory History: Reports: Other (See Below) Other Respiratory History: uses inhaler when she has a cold Gastrointestinal History: Reports: GERD Other Gastrointestinal History: chronic abdominal pain, of unknown cause per son Genitourinary History: Reports: 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: Musculoskeletal History: Reports: Fibromyalgia, RA Other Musculoskeletal History: cervical spinal stenosis Neurological History: Reports: None Psychiatric History: Reports: None Endocrine/Metabolic History: Reports: Hypothyroidism Other Endocrine/Metabolic History: pt is on on synthroid Hematologic History: Reports: None Immunologic History: Reports: None Oncologic (Cancer) History: Reports: None Dermatologic History: Reports: None - Infectious Disease History Infectious Disease History: Reports: Chicken Pox, Measles, Mumps - Past Surgical History Head Surgeries/Procedures: Reports: None HEENT Surgical History: Reports: Cataract Surgery, Tonsillectomy Cardiovascular Surgical History: Reports: Coronary Artery Stent Female Surgical History: Reports: Tubal Ligation - SUBSTANCE USE Smoking Status *Q: Current Every Day Smoker Tobacco Use Within Last Twelve Months: Cigarettes Second Hand Smoke Exposure: No Days Per Week of Alcohol Use: 0 Recreational Drug Use History: No - HOME MEDS Home Medications: Home Meds Levothyroxine 75 mcg PO DAILY 10/08/13 [History] oxyCODONE HCl/Acetaminophen [Endocet 10-325 MG] 10 - 325 tab PO Q4HR PRN [History] predniSONE [Prednisone] 5 mg PO BID 07/23/15 [History] Aspirin 81 mg PO DAILY 10/04/16 [History] Albuterol Sulfate 1 applic INH ASDIRECTED PRN 02/17/17 [History] - CURRENT (IN HOUSE) MEDS Current Meds: Current Medications Lactated Ringer's (Ringers, Lactated) 1,000 mls @ 125 mls/hr IV ASDIRECTED LUDIN Discontinued Medications Cefazolin Sodium/Dextrose 1 gm (/ Premix) 50 mls @ 100 mls/hr IV ONETIME ONE Stop: 02/23/17 05:29
[2017-02-23] MEDS ORDERED: Bupivacaine 25%/EPINEPHrine/PF 30 ML ONE (09:56)
[2017-02-23] MEDS ORDERED: Lidocaine 2% 5 ML SDV ONE (10:14)
[2017-02-23] MEDS ORDERED: Midazolam 1 MG/ML 2 ML SDV ONE (10:15)
[2017-02-23] MEDS ORDERED: fentaNYL 100 MCG/2 ML SDV ONE ×2 (10:15→11:26)
[2017-02-23] MEDS ORDERED: Propofol 200 MG/20 ML SDV ONE (10:15)
[2017-02-23] MEDS ORDERED: Ketorolac 30 MG/ML SDV ONE (10:22)
[2017-02-23] MEDS ORDERED: Ondansetron 4 MG/2 ML SDV ONE (10:22)
[2017-02-23] MEDS ORDERED: Neostigmine Methylsulfate 1 MG/ML 5 ML Syringe ONE (10:22)
[2017-02-23] MEDS ORDERED: Rocuronium 10 MG/ML 10 ML Syringe ONE (10:22)
[2017-02-23] MEDS ORDERED: methylPREDNISolone Sodium Succinate 125 MG/2 ML SDV ONE (10:24)
[2017-02-23] MEDS ORDERED: Acetaminophen/oxyCODONE 325-5 MG Tab PO ONE (11:06)
[2017-02-23] MEDS ORDERED: ePHEDrine 50 MG/ML SDV ONE (11:42)
--- NOTE | 2017-02-23 12:24 | PCM.OPNOTE ---
- General Post-Op/Procedure Note Date of Surgery/Procedure: 02/23/17 Operative Procedure(s): lap jasson Findings: gb was yellow and green, wall was not thickened; liver cirrhotic; [id number] Pre Op Diagnosis: biliary dyskinesia Post-Op Diagnosis: chronic cholecystitis Anesthesia Technique: General ET Tube Primary Surgeon: Ronald Schwartz Pathology: sent, gallbladder with attached small liver specimen; Complications: None Condition: Good
--- NOTE | 2017-02-23 13:05 | OR ---
SURGEON: Ronald Schwartz MD DATE OF PROCEDURE: 02/23/2017 PREOPERATIVE DIAGNOSIS: Biliary dyskinesia. POSTOPERATIVE DIAGNOSIS: Chronic cholecystitis. PROCEDURE PERFORMED: Laparoscopic cholecystectomy. FINDINGS: Gallbladder was yellow and green consistent with chronic cholecystitis. Wall is not thickened. The liver is cirrhotic in appearance. PROCEDURE IN DETAIL: The patient was taken to the operating room and placed in the supine position. After the intubation of general endotracheal anesthesia, the patient's abdomen was prepped and draped in the usual sterile fashion. Using Optiview, a 12 mm trocar was placed supraumbilically and then followed with pneumoperitoneum. A 5 mm trocar was placed in the epigastrium and two 5 mm trocars placed in the right upper quadrant. The placement of the last three trocars was done under direct video supervision. Upon gaining entrance to the abdominal cavity, an extensive examination was then performed. The gallbladder was located and identified and retracted to the dome of the liver at the triangle of Calot. The cystic duct was clipped three more times and then using the endoscopic clip, was transected with placement of the endoscopic clip and transection was performed with care, ensuring the posterior prong of the instruments were clearly visualized prior to exercising the procedure. The gallbladder was dissected using electrocautery out of the liver bed and then removed using endoscopic bag through the umbilical site. The gallbladder was removed en bloc and there was no bile spillage and this was then followed with extensive irrigation until the bile was clear from blood and bile. The trocars were then removed under direct video supervision. The 12 mm umbilical site was then closed with deep stitches using 0 Vicryl followed with proximal stitches using 3-0 Vicryl and Dermabond. The other three trocar sites were closed with 3-0 Vicryl followed with approximation of skin with Dermabond. The patient was then awakened and extubated and transferred to the recovery room in hemodynamically stable condition. At the conclusion of the surgery, before closing the abdominal wound, instrument count and sponge count were done and were correct. The patient tolerated the procedure well and there were no intraoperative complications. Dr. Schwartz was present through the whole procedure. Just before surgery, a timeout was called. The patient was identified and procedure identified and procedure started. Findings as dictated above. GOPI / FARZANA /[id number]
--- NOTE | 2017-02-23 13:06 | PCM.POSTAN ---
POST ANESTHESIA ASSESSMENT - MENTAL STATUS Mental Status: Alert, Oriented - RESPIRATORY Respiratory Status: Respiratory Rate WNL, Airway Patent, O2 Saturation Stable - CARDIOVASCULAR CV Status: Pulse Rate WNL, Blood Pressure Stable - GASTROINTESTINAL GI Status: No Symptoms - PAIN Pain Score: 4 - POST OP HYDRATION Hydration Status: Adequate & Stable
[2017-02-23] MEDS ORDERED: Acetaminophen/oxyCODONE 325-5 MG Tab PO PRN (13:18)
[2017-02-23] MEDS: fentaNYL 100 MCG/2 ML SDV IVPUSH PRN ×2 (13:30→14:15)
--- NOTE | 2017-02-23 15:18 | PCM48HPAN ---
Post Anesthesia Note - EVALUATION WITHIN 48HRS OF ANESTHETIC Vital Signs in Normal Range: Yes Patient Participated in Evaluation: Yes Respiratory Function Stable: Yes Airway Patent: Yes Cardiovascular Function Stable: Yes Hydration Status Stable: Yes Pain Control Satisfactory: Yes Nausea and Vomiting Control Satisfactory: Yes Mental Status Recovered: Yes
[2017-02-23 16:08] VITALS: BP 135/62
== END 2017-02-23 16:00 | disposition home or self-care (01) ==
LOC: MW.SDS 09:25
PROVIDERS: ATTEND Surgery
DX: K80.10 Calculus of gallbladder with chronic cholecystitis without obstruction (principal); M19.90 Unspecified osteoarthritis, unspecified site; I25.10 Atherosclerotic heart disease of native coronary artery without angina pectoris; M48.02 Spinal stenosis, cervical region; E03.9 Hypothyroidism, unspecified; I25.2 Old myocardial infarction; M81.0 Age-related osteoporosis without current pathological fracture; G60.9 Hereditary and idiopathic neuropathy, unspecified; M06.9 Rheumatoid arthritis, unspecified; I10 Essential (primary) hypertension; K21.9 Gastro-esophageal reflux disease without esophagitis; Z79.82 Long term (current) use of aspirin; Z79.899 Other long term (current) drug therapy; Z95.5 Presence of coronary angioplasty implant and graft; Z90.89 Acquired absence of other organs; Z98.51 Tubal ligation status
CPT/HCPCS: 47562; A9270; J0690; J2250; J2405; J2930; J3010; J7120; 00790; 88304; J1885; J2704

== ENCOUNTER 2018-06-01 08:09 | Emergency (ER) | payer MEDICARE, BC ==
[2018-06-01] MEDS ORDERED: Sodium Chloride 0.9% 1,000 ML IV ONE (08:12)
[2018-06-01] MEDS ORDERED: Sodium Chloride 0.9% 2.5 ML Syringe FLUSH PRN (08:12)
[2018-06-01] MEDS ORDERED: Sodium Chloride 0.9% 10 ML Syringe FLUSH PRN (08:12)
[2018-06-01] MEDS ORDERED: Morphine 4 MG/ML Syringe IVPUSH ONE ×2 (08:12→08:39)
[2018-06-01] MEDS ORDERED: Ondansetron 4 MG/2 ML SDV IVPUSH ONE (08:12)
--- NOTE | 2018-06-01 08:17 | EDM.PDOC ---
ED HPI GENERAL MEDICAL PROBLEM - General Stated Complaint: ABDOMINAL PAIN Time Seen by Provider: 06/01/18 08:10 Source of Information: Reports: Patient, EMS History Limitations: Reports: No Limitations - History of Present Illness INITIAL COMMENTS - FREE TEXT/NARRATIVE: History of present illness: []Patient has a history of chronic abdominal pain and presents with severe left upper quadrant pain arriving by ambulance. She stated it started last night it' s worse with movement and breathing and it waxes and wanes. She denies any fevers, chills, nausea, vomiting or diarrhea. Patient states pain worsens when she bends over. Review of systems: As per history of present illness and below otherwise all systems reviewed and negative. Past medical history: As per history of present illness and as reviewed below otherwise noncontributory. Surgical history: As per history of present illness and as reviewed below otherwise noncontributory. Social history: No reported history of drug or alcohol abuse. Family history: As per history of present illness and as reviewed below otherwise noncontributory. Physical exam: General: Well developed, well nourished in NAD HEENT: Atraumatic, normocephalic, pupils reactive, negative for conjunctival pallor or scleral icterus, mucous membranes moist, throat clear, neck supple, nontender, trachea midline. Lungs: Clear to auscultation, breath sounds equal bilaterally, chest nontender. Heart: S1S2, regular, negative for clicks, rubs, or JVD. Abdomen: NABS, Soft, nondistended, nontender. Negative for masses or hepatosplenomegaly. Negative for costovertebral tenderness. Pelvis: Stable nontender. Genitourinary: Deferred. Rectal: Deferred. Extremities: Atraumatic, negative for cords or calf pain. Neurovascular unremarkable. Neuro: Awake, alert, oriented. Cranial nerves II through XII unremarkable. Cerebellum unremarkable. Motor and sensory unremarkable throughout. Exam nonfocal. Skin:warm and dry Diagnostics: CBC, chemistry, lipase, UA, upright chest x-ray Therapeutics: IV hydration, morphine, Zofran and Ativan ED Course: Improved with pain meds Impression: Acute L1 compression fracture Prescriptions: Declined has oxycodone at home Plan: Take meds as directed, follow up with your primary care physician, return to ER if symptoms worsen or change. Definitive disposition and diagnosis as appropriate pending reevaluation and review of above. 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: IV/IO Left Abdominal Pain Score (Numeric/FACES): 10 - Related Data Allergies Allergy/AdvReac Type Severity Reaction Status Date / Time No Known Allergies Allergy Verified 06/01/18 08:29 Home Meds: Home Meds Levothyroxine 75 mcg PO DAILY 10/08/13 [History] oxyCODONE HCl/Acetaminophen [Endocet 10-325 MG] 10 - 325 tab PO Q4HR PRN [History] predniSONE [Prednisone] 5 mg PO BID 07/23/15 [History] Levalbuterol HCl [Levalbuterol Concentrate] 1 dose INH ASDIRECTED PRN 06/01/18 [ History] Past Medical History - Past Health History Medical/Surgical History: Denies Medical/Surgical History HEENT History: Reports: Cataract Other HEENT History: wears glasses, has upper denture Cardiovascular History: Reports: CAD, [place] Other Cardiovascular History: denies current chest pain, SOB and leg swelling Respiratory History: Reports: Other (See Below) Other Respiratory History: uses inhaler when she has a cold Gastrointestinal History: Reports: GERD Other Gastrointestinal History: chronic abdominal pain, of unknown cause per son Genitourinary History: Reports: None 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: Musculoskeletal History: Reports: Fibromyalgia, RA Other Musculoskeletal History: cervical spinal stenosis Neurological History: Reports: None Psychiatric History: Reports: None Endocrine/Metabolic History: Reports: Hypothyroidism Other Endocrine/Metabolic History: pt is on on synthroid Hematologic History: Reports: None Immunologic History: Reports: None Oncologic (Cancer) History: Reports: None Dermatologic History: Reports: None - Infectious Disease History Infectious Disease History: Reports: Chicken Pox, Measles, Mumps - Past Surgical History Head Surgeries/Procedures: Reports: None HEENT Surgical History: Reports: Cataract Surgery, Tonsillectomy Cardiovascular Surgical History: Reports: Coronary Artery Stent Female Surgical History: Reports: Tubal Ligation Social & Family History - Family History Family Medical History: Unobtainable Neurological: Reports: CVA Other Neurological Family History: brother - Caffeine Use Caffeine Use: Reports: Coffee, Soda Caffeine Use Comment: 1cups/day - Living Situation & Occupation Living situation: Reports: Occupation: Retired ED ROS GENERAL - Review of Systems Review Of Systems: ROS reveals no pertinent complaints other than HPI. ED EXAM, GI/ABD - Physical Exam Exam: See Below (See history of present illness) Course - Vital Signs Last Recorded V/S: Last Vital Signs Temp 98.0 F 06/01/18 08:11 Pulse 79 06/01/18 10:00 Resp 18 06/01/18 10:00 BP 135/53 L 06/01/18 10:00 Pulse Ox 97 06/01/18 10:00 - Orders/Labs/Meds Orders: Active Orders 24 hr Category Date Time Status Sodium Chloride 0.9% [Saline Flush] Med 06/01/18 08:12 Active 10 ml FLUSH ASDIRECTED PRN Sodium Chloride 0.9% [Saline Flush] Med 06/01/18 08:12 Active 2.5 ml FLUSH ASDIRECTED PRN Saline Lock Insert [OM.PC] Stat Oth 06/01/18 08:12 Ordered Medication Orders Sodium Chloride (Saline Flush) 10 ml FLUSH ASDIRECTED PRN PRN Reason: Keep Vein Open Sodium Chloride (Saline Flush) 2.5 ml FLUSH ASDIRECTED PRN PRN Reason: Keep Vein Open Labs: Laboratory Tests 06/01/18 06/01/18 06/01/18 Range/Units 08:30 08:30 09:35 WBC 7.00 (4.0-11.0) K/uL RBC 4.40 (4.30-5.90) M/uL Hgb 14.1 (12.0-16.0) g/dL Hct 42.9 (36.0-46.0) % MCV 97.5 (80.0-98.0) fL MCH 32.0 (27.0-32.0) pg MCHC 32.9 (31.0-37.0) g/dL RDW Std Deviation 49.3 (28.0-62.0) fl RDW Coeff of Maxim 14 (11.0-15.0) % Plt Count 173 (150-400) K/uL MPV 10.40 (7.40-12.00) fL Neut % (Auto) 56.4 (48.0-80.0) % Lymph % (Auto) 29.6 (16.0-40.0) % [place] % (Auto) 10.0 (0.0-15.0) % Eos % (Auto) 3.6 (0.0-7.0) % Baso % (Auto) 0.4 (0.0-1.5) % Neut # (Auto) 4.0 (1.4-5.7) K/uL Lymph # (Auto) 2.1 (0.6-2.4) K/uL [place] # (Auto) 0.7 (0.0-0.8) K/uL Eos # (Auto) 0.3 (0.0-0.7) K/uL Baso # (Auto) 0.0 (0.0-0.1) K/uL Nucleated RBC % 0.0 /100WBC Nucleated RBCs # 0 K/uL Sodium 140 (136-145) mmol/L Potassium 3.8 (3.5-5.1) mmol/L Chloride 103 (98-107) mmol/L Carbon Dioxide 30.6 (21.0-32.0) mmol/L BUN 14 (7.0-18.0) mg/dL Creatinine 1.0 (0.6-1.0) mg/dL Est Cr Clr Drug Dosing 46.20 mL/min Estimated GFR (MDRD) 54.2 ml/min Glucose 97 (74-106) mg/dL Calcium 9.4 (8.5-10.1) mg/dL Total Bilirubin 0.7 (0.2-1.0) mg/dL AST 21 (15-37) IU/L ALT 30 (14-63) IU/L Alkaline Phosphatase 52 (46-116) U/L Total Protein 7.1 (6.4-8.2) g/dL Albumin 3.1 L (3.4-5.0) g/dL Globulin 4.0 (2.6-4.0) g/dL Albumin/Globulin Ratio 0.8 L (0.9-1.6) Lipase 81 (73-393) U/L Urine Color YELLOW Urine Appearance CLEAR Urine pH 8.0 (5.0-8.0) Ur Specific Crum 1.015 (1.001-1.035) Urine Protein NEGATIVE (NEGATIVE) mg/dL Urine Glucose (UA) NEGATIVE (NEGATIVE) mg/dL Urine Ketones NEGATIVE (NEGATIVE) mg/dL Urine Occult Blood NEGATIVE (NEGATIVE) Urine Nitrite NEGATIVE (NEGATIVE) Urine Bilirubin NEGATIVE (NEGATIVE) Urine Urobilinogen 0.2 (<2.0) EU/dL Ur Leukocyte Esterase NEGATIVE (NEGATIVE) Urine RBC 0-2 (0-2/HPF) Urine WBC 0-2 (0-5/HPF) Ur Epithelial Cells FEW (NONE-FEW) Amorphous Sediment LIGHT (NEGATIVE) Urine Bacteria FEW (NEGATIVE) Urine Mucus LIGHT (NONE-MOD) Meds: Medications Generic Name Dose Route Start Last Admin Trade Name Freq PRN Reason Stop Dose Admin Sodium Chloride 10 ml 06/01/18 08:12 Saline Flush FLUSH ASDIRECTED PRN Keep Vein Open Sodium Chloride 2.5 ml 06/01/18 08:12 Saline Flush FLUSH ASDIRECTED PRN Keep Vein Open Discontinued Medications Generic Name Dose Route Start Last Admin Trade Name Freq PRN Reason Stop Dose Admin Sodium Chloride 1,000 mls @ 999 mls/hr 06/01/18 08:12 06/01/18 08:20 Normal Saline IV 06/01/18 09:12 999 mls/hr .Bolus ONE Administration Iopamidol 75 ml 06/01/18 10:38 06/01/18 10:38 Isovue Multipack-370 (76%) IVPUSH 06/01/18 10:39 75 ml ONETIME ONE Administration Lorazepam 0.5 mg 06/01/18 09:15 06/01/18 09:26 Ativan IVPUSH 06/01/18 09:16 Not Given ONETIME ONE Morphine Sulfate 4 mg 06/01/18 08:12 06/01/18 08:20 Morphine IVPUSH 06/01/18 08:13 4 mg ONETIME ONE Administration Morphine Sulfate 4 mg 06/01/18 08:39 06/01/18 08:43 Morphine IVPUSH 06/01/18 08:40 4 mg ONETIME ONE Administration Ondansetron HCl 4 mg 06/01/18 08:12 06/01/18 08:20 Zofran IVPUSH 06/01/18 08:13 4 mg ONETIME ONE Administration Departure - Departure Time of Disposition: 11:22 Disposition: Home, Self-Care 01 Condition: Good Clinical Impression: Compression fracture of L1 lumbar vertebra Qualifiers: Encounter type: initial encounter Fracture type: closed Qualified Code(s): S32.010A - Wedge compression fracture of first lumbar vertebra, initial encounter for closed fracture - Discharge Information *PRESCRIPTION DRUG MONITORING PROGRAM REVIEWED*: No *COPY OF PRESCRIPTION DRUG MONITORING REPORT IN PATIENT PRIETO: No Referrals: PCP,None [Primary Care Provider] - Additional Instructions: The following information is given to patients seen in the emergency department who are being discharged to home. This information is to outline your options for follow-up care. We provide all patients seen in our emergency department with a follow-up referral. The need for follow-up, as well as the timing and circumstances, are variable depending upon the specifics of your emergency department visit. If you don't have a primary care physician on staff, we will provide you with a referral. We always advise you to contact your personal physician following an emergency department visit to inform them of the circumstance of the visit and for follow-up with them and/or the need for any referrals to a consulting specialist. The emergency department will also refer you to a specialist when appropriate. This referral assures that you have the opportunity for follow-up care with a specialist. All of these measure are taken in an effort to provide you with optimal care, which includes your follow-up. Under all circumstances we always encourage you to contact your private physician who remains a resource for coordinating your care. When calling for follow-up care, please make the office aware that this follow-up is from your recent emergency room visit. If for any reason you are refused follow-up, please contact the [facility] Emergency Department at and asked to speak to the emergency department charge nurse. Take meds as directed, follow up with your primary care physician, return to ER if symptoms worsen or change. [facility] [address] [place] [id number] - My Orders Last 24 Hours: My Active Orders 06/01/18 08:12 Sodium Chloride 0.9% [Saline Flush] 10 ml FLUSH ASDIRECTED PRN Sodium Chloride 0.9% [Saline Flush] 2.5 ml FLUSH ASDIRECTED PRN Saline Lock Insert [OM.PC] Stat - Assessment/Plan Last 24 Hours: My Active Orders 06/01/18 08:12 Sodium Chloride 0.9% [Saline Flush] 10 ml FLUSH ASDIRECTED PRN Sodium Chloride 0.9% [Saline Flush] 2.5 ml FLUSH ASDIRECTED PRN Saline Lock Insert [OM.PC] Stat
--- NOTE | 2018-06-01 09:08 | CR ---
EXAMINATION: Portable chest radiograph. HISTORY: Left upper quadrant pain. FINDINGS: The trachea is midline. The cardiomediastinal silhouette is within normal limits. No pulmonary infiltrates, effusions or pneumothorax. Osseous structures appear unremarkable. IMPRESSION: No acute cardiopulmonary process.
[2018-06-01] MEDS ORDERED: LORazepam 2 MG/ML SDV IVPUSH ONE (09:15)
[2018-06-01] MEDS ORDERED: Iopamidol 755 MG/ML 500 ML Multipack Bottle IVPUSH ONE (10:38)
[2018-06-01 11:02] VITALS: BP 135/53
--- NOTE | 2018-06-01 11:10 | CT ---
CT of the abdomen and pelvis with contrast. HISTORY: Pain TECHNIQUE: Axial CT images were obtained of the abdomen and pelvis following administration of 75 mL of Isovue-370 in the right antecubital fossa without complication. Coronal and sagittal reconstructions obtained. FINDINGS: The lung bases are clear, no pleural effusion. Mild left lingular scarring. Mild focal fatty infiltration of the liver. Likely small splenic cyst. The adrenal glands and pancreas appear normal. Cholecystectomy clips are noted. There is no retroperitoneal lymphadenopathy or abdominal ascites. The kidneys enhance and function symmetrically without evidence of obstructive uropathy. Moderate atheromatous changes within the distal aorta. The large and small bowel are normal in caliber without evidence of obstruction. No focal pericolonic inflammation or stranding. The appendix is normal. Urinary bladder is normal. No bulky pelvic lymphadenopathy or free pelvic fluid. There is an acute appearing mild superior endplate compression deformity of the L1 vertebral body. Otherwise degenerative changes noted within the lumbar spine. IMPRESSION: 1. Acute appearing mild superior endplate compression deformity of the L1 vertebral body with minimal vertebral body height loss. 2. Otherwise no acute findings noted within the abdomen or pelvis.
== END 2018-06-01 11:41 | disposition home or self-care (01) ==
LOC: MW.ED 08:09
DX: S32.010A Wedge compression fracture of first lumbar vertebra, initial encounter for closed fracture (principal); I25.10 Atherosclerotic heart disease of native coronary artery without angina pectoris; I25.2 Old myocardial infarction; M06.9 Rheumatoid arthritis, unspecified; E03.9 Hypothyroidism, unspecified; Z79.899 Other long term (current) drug therapy; X50.9XXA Other and unspecified overexertion or strenuous movements or postures, initial encounter
CPT/HCPCS: 36415; 71045; 74177; 80053; 81001; 83690; 85025; 96361; 96374; 96375; 99285; J2270; J2405; J7040; Q9967

== ENCOUNTER 2018-10-10 06:38 | Day surgery (SDC) | payer MEDICARE, BC ==
[~2018-10-10 06:38] MED LIST changes: -ceFAZolin 1 GM in Premix Bag 1 BAG IV ONE
[2018-10-10] MEDS ORDERED: Propofol 200 MG/20 ML SDV ONE ×2 (07:24→08:25)
[2018-10-10] MEDS ORDERED: Lidocaine 2% 5 ML SDV ONE (07:25)
--- NOTE | 2018-10-10 07:50 | PCM.PREANE ---
Preanesthetic Assessment - Anesthesia/Transfusion/Family Hx Anesthesia History: Prior Anesthesia Without Reaction Family History of Anesthesia Reaction: No Transfusion History: No Prior Transfusion(s) - Review of Systems General: Weakness, Fatigue Gastrointestinal: Other (bile and acid reflux) Neurological: Pre-Existing Deficit, Weakness - Physical Assessment NPO Status Date: 10/09/18 NPO Status Time: 23:00 Vital Signs: Last Vital Signs Temp 97.5 F 10/10/18 07:00 Pulse 77 10/10/18 07:00 Resp 16 10/10/18 07:00 BP 141/63 H 10/10/18 07:00 Pulse Ox 95 10/10/18 07:00 Height: 5 ft 4 in Weight: 55.338 kg ASA Class: 3 Mental Status: Alert & Oriented x3 Airway Class: Mallampati = 2 ROM/Head Extension: Limited/Partial Lungs: Clear to Auscultation, Normal Respiratory Effort Cardiovascular: Regular Rate, Regular Rhythm - Allergies Allergies/Adverse Reactions: Allergies Allergy/AdvReac Type Severity Reaction Status Date / Time No Known Allergies Allergy Verified 10/09/18 10:13 - Blood Blood Available: No - Anesthesia Plan Pre-Op Medication Ordered: None - Acknowledgements Anesthesia Type Planned: General Anesthesia Pt an Appropriate Candidate for the Planned Anesthesia: Yes Alternatives and Risks of Anesthesia Discussed w Pt/Guardian: Yes Pt/Guardian Understands and Agrees with Anesthesia Plan: Yes Additional Comments: PMH: CAD- s/p ami with stent placement in 1999 (prob bare metal stent), no subsequent cardiac sx or problems, smoker- no COPD( nebulizers are for use after URIs in the winter months, RA-abida primarily in hands- helped by low dose prednisone and oxycodone, chronic steroid and oxycontin use- prob tolerant to narcotics, HTN, IBS, 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 Activity limited by weakness and fatigue- not by chest pains or dyspnea PLAN: TIVA PreAnesthesia Questionnaire - Past Health History Medical/Surgical History: Denies Medical/Surgical History HEENT History: Reports: Cataract, Other (See Below) Other HEENT History: wears glasses, has upper denture Cardiovascular History: Reports: Hypertension, [place] Other Cardiovascular History: states she has high blood pressure but does not take any medications- "they make me sick" Respiratory History: Reports: Other (See Below) Other Respiratory History: uses a nebulizer when she gets a cold Gastrointestinal History: Reports: GERD, Irritable Bowel Syndrome Other Gastrointestinal History: chronic abdominal pain, of unknown cause per son Genitourinary History: Reports: None 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: Musculoskeletal History: Reports: Fibromyalgia, RA Other Musculoskeletal History: hx of spinal stenosis Neurological History: Reports: Neuropathy, Peripheral Psychiatric History: Reports: None Endocrine/Metabolic History: Reports: Hypothyroidism Other Endocrine/Metabolic History: pt is on on synthroid Hematologic History: Reports: None Immunologic History: Reports: Immunosuppression Oncologic (Cancer) History: Reports: None Dermatologic History: Reports: None - Infectious Disease History Infectious Disease History: Reports: Chicken Pox, Measles, Mumps - Past Surgical History Head Surgeries/Procedures: Reports: None HEENT Surgical History: Reports: Cataract Surgery, Tonsillectomy Cardiovascular Surgical History: Reports: Coronary Artery Stent GI Surgical History: Reports: Cholecystectomy Female Surgical History: Reports: Tubal Ligation - SUBSTANCE USE Smoking Status *Q: Current Every Day Smoker Tobacco Use Within Last Twelve Months: Cigarettes Recreational Drug Use History: No - HOME MEDS Home Medications: Home Meds Levothyroxine 75 mcg PO DAILY 10/08/13 [History] oxyCODONE HCl/Acetaminophen [Endocet 10-325 MG] 10 - 325 tab PO Q4HR PRN [History] predniSONE [Prednisone] 5 mg PO BID 07/23/15 [History] Levalbuterol HCl [Levalbuterol Concentrate] 1 dose INH ASDIRECTED PRN 06/01/18 [ History] Aspirin [Adult Low Dose Aspirin EC] 81 mg PO DAILY 10/09/18 [History] Cimetidine 200 mg PO DAILY PRN 10/09/18 [History] Lipase/Protease/Amylase [Jorge DR 3,000 Unit] 6,000 unit PO TIDMEALS 10/09/18 [ History] Multivitamin-Minerals No.55 [Centrum Flavor Burst Adult] 1 tab PO DAILY [History] Ondansetron [Zofran ODT] 4 mg PO Q6H PRN 10/09/18 [History] - CURRENT (IN HOUSE) MEDS Current Meds: Current Medications Lactated Ringer's (Ringers, Lactated) 1,000 mls @ 125 mls/hr IV ASDIRECTED LUDIN Last Admin: 10/10/18 07:03 Dose: 125 mls/hr Discontinued Medications Lactated Ringer's (Ringers, Lactated) 1,000 mls @ 125 mls/hr IV ASDIRECTED [facility] Lidocaine (Xylocaine-Mpf 2%) Confirm Administered Dose 5 ml .ROUTE .STK-MED ONE Stop: 10/10/18 07:26 Propofol (Diprivan 20 Ml) Confirm Administered Dose 400 mg .ROUTE .STK-MED ONE Stop: 10/10/18 07:25
--- NOTE | 2018-10-10 09:06 | PCM.POSTAN ---
POST ANESTHESIA ASSESSMENT - MENTAL STATUS Mental Status: Alert, Oriented - VITAL SIGNS Vital Signs: Last Vital Signs Temp 96.8 F 10/10/18 08:43 Pulse 66 10/10/18 08:58 Resp 19 10/10/18 08:58 BP 92/56 L 10/10/18 08:58 Pulse Ox 98 10/10/18 08:58 - RESPIRATORY Respiratory Status: Respiratory Rate WNL, Airway Patent, O2 Saturation Stable - CARDIOVASCULAR CV Status: Pulse Rate WNL, Blood Pressure Stable - GASTROINTESTINAL GI Status: No Symptoms - PAIN Pain Score: 0 - POST OP HYDRATION Hydration Status: Adequate & Stable
--- NOTE | 2018-10-10 09:15 | PCM.OPNOTE ---
- General Post-Op/Procedure Note Date of Surgery/Procedure: 10/10/18 Operative Procedure(s): egd w bx. colonoscope w bx Findings: see dict [id number] Pre Op Diagnosis: abd pain, wt loss Post-Op Diagnosis: Same Anesthesia Technique: Moderate Sedation Primary Surgeon: Ronald Schwartz Pathology: egd bx colonoscopy bx Complications: None Condition: Good
[2018-10-10 09:21] VITALS: BP 138/64
--- NOTE | 2018-10-10 09:47 | PCM48HPAN ---
Post Anesthesia Note - EVALUATION WITHIN 48HRS OF ANESTHETIC Vital Signs in Normal Range: Yes Patient Participated in Evaluation: Yes Respiratory Function Stable: Yes Airway Patent: Yes Cardiovascular Function Stable: Yes Hydration Status Stable: Yes Pain Control Satisfactory: Yes Nausea and Vomiting Control Satisfactory: Yes Mental Status Recovered: Yes Vital Signs: Last Vital Signs Temp 97.0 F 10/10/18 09:15 Pulse 71 10/10/18 09:15 Resp 16 10/10/18 09:15 BP 138/64 10/10/18 09:15 Pulse Ox 97 10/10/18 09:15
--- NOTE | 2018-10-10 11:03 | OR ---
SURGEON: Ronald Schwartz MD DATE OF PROCEDURE: 10/10/2018 PREOPERATIVE DIAGNOSES: Abdominal pain and weight loss. POSTOPERATIVE DIAGNOSES: Esophagogastroduodenoscopy diagnosis is gastritis and colonoscopy diagnosis is diverticulosis. PROCEDURES PERFORMED: Esophagogastroduodenoscopy with biopsy and colonoscopy with biopsy. PRIMARY SURGEON: Ronald Schwartz MD. DESCRIPTION OF PROCEDURE: EGD: The patient was taken to the endoscopy room, and with the FRAME SAMPLE AND PATTERN SUPERVISOR, Diprivan was administered. A well-lubricated EGD scope was gently inserted through the oropharynx, down the esophagus, passing through the gastroesophageal junction, into the stomach. The mucosa was examined upon the passage. Any etiology will be noted. Once in the stomach, we continued to advance to the distal antrum, passed through the pylorus into the second portion of the duodenum. Again, the mucosa was examined for any abnormality and etiology. The scope was then retrieved back to the stomach and then retroflexed to look at the fundus of the stomach. If a biopsy was indicated, we will biopsy the antrum, body, and gastroesophageal junction. The air will be sucked out while the scope is retrieved to reduce the patient's discomfort. The patient tolerated the procedure well. There were no intraoperative complications. Dr. Schwartz was present through the whole procedure. Prior to surgery, a time-out had been called, the patient identified, procedure identified and antibiotic administered. The patient was taken to the endoscopy room. A time out was called, patient identified, and procedure identified. Diprivan was then administrated. Patient went from awake to sleep, hearing doctor talking or door closing is normal. Perineum inspection and digital examination were then performed. A well- lubricated colonoscope was gently inserted through the rectum, advanced past the rectosigmoid junction, the descending colon, splenic flexure, transverse colon, hepatic flexure, ascending colon, arrived to the cecum. Cecum was identified as dictated in the finding. Then the scope was carefully withdrawn while attention was paid to the mucosal surface for any abnormality. Air will be sucked out during the scope withdrawal. At the rectum, retroflexed to examine any rectal diseases, fistula or hemorrhoids. During mucosal examination, abnormality or polyp was noted; picture taken and biopsy performed. Patient tolerated procedure well. There were no intraoperative complications, and Dr. Schwartz was present throughout the whole procedure. FINDINGS: EGD findings: 1. The patient is easily sedated with FRAME SAMPLE AND PATTERN SUPERVISOR and Diprivan, the patient is soundly snoring. 2. Oropharynx and proximal esophagus are free of disease, infection, stricture, or inflammation. Distal esophagus at GE junction at 40 shows very mild salmon-colored change, but does have GERD suggested. Stomach rugae are a little bit flattened such as of chronic over-acid production. Antrum is very inflamed and with petechiae. Hemorrhaging spot is not really hemorrhaging, but there is some spotting over there and in some area it shows a possible healed stomach ulcer. There is no hugo ulcer observed today and no bile, no food. There is some petechial bloody spot. The duodenum is grossly normal in appearance, but there is bile in the duodenum. Retroflexed look at the fundus of the stomach, the patient has mild hiatal hernia, very mild. Biopsy done at antrum and biopsy done at body and sucked out the gas while scope pulling out. Colonoscopy findings: 1. The patient is easily sedated with FRAME SAMPLE AND PATTERN SUPERVISOR and Diprivan, the patient is soundly snoring. 2. Bowel prep is average, in fact is above average. Some liquid stool, no semi-formed stool. 3. Colon is rather straightforward. Cecum indicated by ileocecal fold, one-to- one indentation, appendiceal orifice, and light emittance. Mucosa examined upon scope pulling out with some irrigation. The patient has minimal diverticulosis on the left colon. No signs or symptoms of diverticulitis. Also, there is a small polyp, 2 mm sessile polyp at distance of 10 cm when the scope pulling out. Was biopsy removed. The patient does not have inflammation, stricture, ulceration, AV malformation, bleeding observed for the rest of the colon. The patient has some internal hemorrhoids and some mild external hemorrhoids. The patient would benefit from repeat colonoscopy on an as-needed basis. The patient is 73 years old. GOPI / FARZANA /[id number] ANNA
== END 2018-10-10 09:40 | disposition home or self-care (01) ==
LOC: MW.SDS 06:38
PROVIDERS: ATTEND Surgery
DX: K29.50 Unspecified chronic gastritis without bleeding (principal); K63.5 Polyp of colon; K21.9 Gastro-esophageal reflux disease without esophagitis; K64.8 Other hemorrhoids; M19.90 Unspecified osteoarthritis, unspecified site; I25.10 Atherosclerotic heart disease of native coronary artery without angina pectoris; I10 Essential (primary) hypertension; E03.9 Hypothyroidism, unspecified; F17.210 Nicotine dependence, cigarettes, uncomplicated; M06.9 Rheumatoid arthritis, unspecified; R63.4 Abnormal weight loss; R23.3 Spontaneous ecchymoses; Z79.899 Other long term (current) drug therapy; Z79.52 Long term (current) use of systemic steroids
CPT/HCPCS: 43239; 45380; J2001; J2704; J7120; 88305; 88312

== ENCOUNTER 2019-04-05 17:10 | Inpatient (IN) | payer MEDICARE, BC ==
[2019-04-05] MEDS ORDERED: methylPREDNISolone Sodium Succinate 125 MG/2 ML SDV IVPUSH ONE (17:16)
[2019-04-05] MEDS: Albuterol/Ipratropium 3.0-0.5 MG/3 ML Neb Soln NEB ONE ×2 (17:29→18:34)
[2019-04-05] MEDS ORDERED: Sodium Chloride 0.9% 500 ML IV SCH ×2 (17:30→18:45)
--- NOTE | 2019-04-05 17:35 | EDM.PDOC ---
ED HPI GENERAL MEDICAL PROBLEM - General Chief Complaint: General Stated Complaint: EMS ARRIVAL DIABETIC Time Seen by Provider: 04/05/19 17:35 Source of Information: Reports: Patient - History of Present Illness INITIAL COMMENTS - FREE TEXT/NARRATIVE: HISTORY AND PHYSICAL: History of present illness: [Patient arrives via EMS And this morning through primary care with chest x-ray and some serum lab testing and urinalysis found to have a UTI started on Bactrim and azithromycin EMS reports Accu-Chek of 45 however on arrival recheck is 64 hemodynamically stable in no distress power of employee benefits attorney with home health is here patient is DNR/ DNI ] Spoken with power of employee benefits attorney, they request no transfer no surgery no cardiac cath She was found to have global ischemia on EKG and symptoms of shortness of breath and vague chest pain over the last week with ambulation cardiac enzymes are negative at this time Review of systems: As per history of present illness and below otherwise all systems reviewed and negative. Past medical history: As per history of present illness and as reviewed below otherwise noncontributory. Surgical history: As per history of present illness and as reviewed below otherwise noncontributory. Social history: No reported history of drug or alcohol abuse. Family history: As per history of present illness and as reviewed below otherwise noncontributory. Physical exam: HEENT: Atraumatic, normocephalic, pupils reactive, negative for conjunctival pallor or scleral icterus, mucous membranes moist, throat clear, neck supple, nontender, trachea midline. Lungs: Clear to auscultation, breath sounds equal bilaterally, chest nontender. Heart: S1S2, regular, negative for clicks, rubs, or JVD. Abdomen: Soft, nondistended, nontender. Negative for masses or hepatosplenomegaly. Negative for costovertebral tenderness. Pelvis: Stable nontender. Genitourinary: Deferred. Rectal: Deferred. Extremities: Atraumatic, negative for cords or calf pain. Neurovascular unremarkable. Neuro: Awake, alert, oriented. Cranial nerves II through XII unremarkable. Cerebellum unremarkable. Motor and sensory unremarkable throughout. Exam nonfocal. Diagnostics: [cBC CMP troponin INR due cold blood with blood cultures x2 UA on file from this morning Chest 2 view from this morning on file ] Therapeutics: [Saline Zosyn ] Lopressor Lovenox Oxygen Discussion with son/power of employee benefits attorney he and patient refused transfer or consideration of cardiac cath or any surgical procedure she is also DNR DNI, in- house medical therapy only at this time Impression: [Hypoxia global ischemia UTI Hypoglycemia resolved ] Definitive disposition and diagnosis as appropriate pending reevaluation and review of above. - Related Data Allergies Allergy/AdvReac Type Severity Reaction Status Date / Time No Known Allergies Allergy Verified 04/05/19 17:16 Home Meds: Home Meds Levothyroxine 75 mcg PO DAILY 10/08/13 [History] oxyCODONE HCl/Acetaminophen [Endocet 10-325 MG] 10 - 325 tab PO Q4HR PRN [History] predniSONE [Prednisone] 5 mg PO BID 07/23/15 [History] Aspirin [Adult Low Dose Aspirin EC] 81 mg PO DAILY 10/09/18 [History] Cimetidine 200 mg PO DAILY PRN 10/09/18 [History] Multivit with Minerals No.55 [Centrum Flavor Burst Adult] 1 tab PO DAILY [History] Ondansetron [Zofran ODT] 4 mg PO Q6H PRN 10/09/18 [History] Past Medical History - Past Health History Medical/Surgical History: Denies Medical/Surgical History HEENT History: Reports: Cataract, Other (See Below) Other HEENT History: wears glasses, has upper denture Cardiovascular History: Reports: Hypertension, OR Other Cardiovascular History: states she has high blood pressure but does not take any medications- "they make me sick" Respiratory History: Reports: Other (See Below) Other Respiratory History: uses a nebulizer when she gets a cold Gastrointestinal History: Reports: GERD, Irritable Bowel Syndrome Other Gastrointestinal History: chronic abdominal pain, of unknown cause per son Genitourinary History: Reports: None [employer]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: Musculoskeletal History: Reports: Fibromyalgia, RA Other Musculoskeletal History: hx of spinal stenosis Neurological History: Reports: Neuropathy, Peripheral Psychiatric History: Reports: None Endocrine/Metabolic History: Reports: Hypothyroidism Other Endocrine/Metabolic History: pt is on on synthroid Hematologic History: Reports: None Immunologic History: Reports: Immunosuppression Oncologic (Cancer) History: Reports: None Dermatologic History: Reports: None - Infectious Disease History Infectious Disease History: Reports: Chicken Pox, Measles, Mumps - Past Surgical History Head Surgeries/Procedures: Reports: None HEENT Surgical History: Reports: Cataract Surgery, Tonsillectomy Cardiovascular Surgical History: Reports: Coronary Artery Stent Respiratory Surgical History: Reports: None GI Surgical History: Reports: Cholecystectomy Female Surgical History: Reports: Tubal Ligation Endocrine Surgical History: Reports: None Neurological Surgical History: Reports: None Musculoskeletal Surgical History: Reports: None Dermatological Surgical History: Reports: None Social & Family History - Family History Family Medical History: Unobtainable Neurological: Reports: CVA Other Neurological Family History: brother - Tobacco Use Smoking Status *Q: Current Every Day Smoker Years of Tobacco use: 60 Packs/Tins Daily: 0.5 - Caffeine Use Caffeine Use: Reports: None Caffeine Use Comment: 1cups/day - Recreational Drug Use Recreational Drug Use: No - Living Situation & Occupation Living situation: Reports: Occupation: Retired ED ROS GENERAL - Review of Systems Review Of Systems: See Below ED EXAM, GENERAL - Physical Exam Exam: See Below Course - Vital Signs Last Recorded V/S: Last Vital Signs Temp 97.9 F 04/05/19 17:12 Pulse 14 L 04/05/19 17:12 Resp 14 04/05/19 17:12 BP 124/68 04/05/19 17:12 Pulse Ox 68 L 04/05/19 17:12 - Orders/Labs/Meds Orders: Active Orders 24 hr Category Date Time Status EKG Documentation Completion [RC] STAT Care 04/05/19 17:48 Active RT Aerosol Therapy [RC] ASDIRECTED Care 04/05/19 17:17 Active CULTURE BLOOD [BC] Stat Lab 04/05/19 17:25 Received CULTURE BLOOD [BC] Stat Lab 04/05/19 17:54 Results INFLUENZA A+B AG SCREEN [RM] Stat Lab 04/05/19 17:17 Ordered UA RFX OPAL AND CULT IF INDIC [URIN] Stat Lab 04/05/19 17:16 Ordered Metoprolol Tartrate [Lopressor] Med 04/05/19 18:15 Active 5 mg IVPUSH Q5M Sodium Chloride 0.9% [Normal Saline] 500 ml Med 04/05/19 17:30 Active IV STAT Blood Culture x2 Reflex Set [OM.PC] Stat Oth 04/05/19 17:17 Ordered Medication Orders Sodium Chloride (Normal Saline) 500 mls @ 999 mls/hr IV STAT LUDIN Last Admin: 04/05/19 17:32 Dose: 999 mls/hr Metoprolol Tartrate (Lopressor) 5 mg IVPUSH Q5M LUDIN Stop: 04/05/19 18:26 Labs: Laboratory Tests 04/05/19 04/05/19 04/05/19 Range/Units 17:10 17:10 17:10 WBC 8.81 (4.0-11.0) K/uL RBC 4.73 (4.30-5.90) M/uL Hgb 15.3 (12.0-16.0) g/dL Hct 46.6 H (36.0-46.0) % MCV 98.5 H (80.0-98.0) fL MCH 32.3 H (27.0-32.0) pg MCHC 32.8 (31.0-37.0) g/dL RDW Std Deviation 49.8 (28.0-62.0) fl RDW Coeff of Maxim 14 (11.0-15.0) % Plt Count 153 (150-400) K/uL MPV 10.80 (7.40-12.00) fL Neut % (Auto) 87.5 H (48.0-80.0) % Lymph % (Auto) 7.7 L (16.0-40.0) % [place] % (Auto) 4.2 (0.0-15.0) % Eos % (Auto) 0.5 (0.0-7.0) % Baso % (Auto) 0.1 (0.0-1.5) % Neut # (Auto) 7.7 H (1.4-5.7) K/uL Lymph # (Auto) 0.7 (0.6-2.4) K/uL [place] # (Auto) 0.4 (0.0-0.8) K/uL Eos # (Auto) 0.0 (0.0-0.7) K/uL Baso # (Auto) 0.0 (0.0-0.1) K/uL Nucleated RBC % 0.0 /100WBC Nucleated RBCs # 0 K/uL INR 0.90 Lactate (0.20-2.00) mmol/L Sodium 139 (136-145) mmol/L Potassium 3.6 (3.5-5.1) mmol/L Chloride 102 (98-107) mmol/L Carbon Dioxide 28.2 (21.0-32.0) mmol/L BUN 24 H (7.0-18.0) mg/dL Creatinine 1.4 H (0.6-1.0) mg/dL Est Cr Clr Drug Dosing TNP Estimated GFR (MDRD) 36.8 ml/min Glucose 97 (74-106) mg/dL POC Glucose (60-110) mg/dL Calcium 9.6 (8.5-10.1) mg/dL Total Bilirubin 0.3 (0.2-1.0) mg/dL AST 28 (15-37) IU/L ALT 26 (14-63) IU/L Alkaline Phosphatase 66 (46-116) U/L Troponin I < 0.050 (0.000-0.056) ng/mL Total Protein 7.5 (6.4-8.2) g/dL Albumin 3.5 (3.4-5.0) g/dL Globulin 4.0 (2.6-4.0) g/dL Albumin/Globulin Ratio 0.9 (0.9-1.6) 04/05/19 04/05/19 Range/Units 17:10 17:53 WBC (4.0-11.0) K/uL RBC (4.30-5.90) M/uL Hgb (12.0-16.0) g/dL Hct (36.0-46.0) % MCV (80.0-98.0) fL MCH (27.0-32.0) pg MCHC (31.0-37.0) g/dL RDW Std Deviation (28.0-62.0) fl RDW Coeff of Maxim (11.0-15.0) % Plt Count (150-400) K/uL MPV (7.40-12.00) fL Neut % (Auto) (48.0-80.0) % Lymph % (Auto) (16.0-40.0) % [place] % (Auto) (0.0-15.0) % Eos % (Auto) (0.0-7.0) % Baso % (Auto) (0.0-1.5) % Neut # (Auto) (1.4-5.7) K/uL Lymph # (Auto) (0.6-2.4) K/uL [place] # (Auto) (0.0-0.8) K/uL Eos # (Auto) (0.0-0.7) K/uL Baso # (Auto) (0.0-0.1) K/uL Nucleated RBC % /100WBC Nucleated RBCs # K/uL INR Lactate 1.9 (0.20-2.00) mmol/L Sodium (136-145) mmol/L Potassium (3.5-5.1) mmol/L Chloride (98-107) mmol/L Carbon Dioxide (21.0-32.0) mmol/L BUN (7.0-18.0) mg/dL Creatinine (0.6-1.0) mg/dL Est Cr Clr Drug Dosing Estimated GFR (MDRD) ml/min Glucose (74-106) mg/dL POC Glucose 72 (60-110) mg/dL Calcium (8.5-10.1) mg/dL Total Bilirubin (0.2-1.0) mg/dL AST (15-37) IU/L ALT (14-63) IU/L Alkaline Phosphatase (46-116) U/L Troponin I (0.000-0.056) ng/mL Total Protein (6.4-8.2) g/dL Albumin (3.4-5.0) g/dL Globulin (2.6-4.0) g/dL Albumin/Globulin Ratio (0.9-1.6) Meds: Medications Generic Name Dose Route Start Last Admin Trade Name Freq PRN Reason Stop Dose Admin Sodium Chloride 500 mls @ 999 mls/hr 04/05/19 17:30 04/05/19 17:32 Normal Saline IV 999 mls/hr STAT LUDIN Administration Metoprolol Tartrate 5 mg 04/05/19 18:15 Lopressor IVPUSH 04/05/19 18:26 Q5M LUDIN Discontinued Medications Generic Name Dose Route Start Last Admin Trade Name Freq PRN Reason Stop Dose Admin Albuterol/Ipratropium 3 ml 04/05/19 17:16 04/05/19 17:29 Duoneb 3.0-0.5 Mg/3 Ml NEB 04/05/19 17:17 3 ml ONETIME ONE Administration Enoxaparin Sodium 72.5 mg 04/05/19 18:10 Lovenox SUBCUT 04/05/19 18:11 ONETIME ONE Piperacillin Sod/Tazobactam 50 mls @ 100 mls/hr 04/05/19 17:38 04/05/19 17:54 Sod 3.375 gm/ Sodium Chloride IV 04/05/19 18:07 100 mls/hr ONETIME ONE Administration Methylprednisolone Sodium Succinate 125 mg 04/05/19 17:16 04/05/19 17:32 Solu-Medrol IVPUSH 04/05/19 17:17 125 mg ONETIME ONE Administration Departure - Departure Time of Disposition: 18:18 Disposition: Refer to Observation Condition: Poor Clinical Impression: Ischemia, Hypoxia - Discharge Information Forms: ED Department Discharge Sepsis Event Note - Evaluation Sepsis Screening Result: No Definite Risk - Focused Exam Vital Signs: Vital Signs Temp Pulse Resp BP Pulse Ox 04/05/19 17:12 97.9 F 14 L 14 124/68 68 L Date Exam was Performed: 04/05/19 Time Exam was Performed: 18:13 - My Orders Last 24 Hours: My Active Orders 04/05/19 17:16 UA RFX OPAL AND CULT IF INDIC [URIN] Stat 04/05/19 17:17 RT Aerosol Therapy [RC] ASDIRECTED INFLUENZA A+B AG SCREEN [RM] Stat Blood Culture x2 Reflex Set [OM.PC] Stat 04/05/19 17:25 CULTURE BLOOD [BC] Stat 04/05/19 17:30 Sodium Chloride 0.9% [Normal Saline] 500 ml IV STAT 04/05/19 17:48 EKG Documentation Completion [RC] STAT 04/05/19 17:54 CULTURE BLOOD [BC] Stat 04/05/19 18:15 Metoprolol Tartrate [Lopressor] 5 mg IVPUSH Q5M - Assessment/Plan Last 24 Hours: My Active Orders 04/05/19 17:16 UA RFX OPAL AND CULT IF INDIC [URIN] Stat 04/05/19 17:17 RT Aerosol Therapy [RC] ASDIRECTED INFLUENZA A+B AG SCREEN [RM] Stat Blood Culture x2 Reflex Set [OM.PC] Stat 04/05/19 17:25 CULTURE BLOOD [BC] Stat 04/05/19 17:30 Sodium Chloride 0.9% [Normal Saline] 500 ml IV STAT 04/05/19 17:48 EKG Documentation Completion [RC] STAT 04/05/19 17:54 CULTURE BLOOD [BC] Stat 04/05/19 18:15 Metoprolol Tartrate [Lopressor] 5 mg IVPUSH Q5M
[2019-04-05] MEDS ORDERED: Piperacillin/Tazobactam 3.375 GM in Sodium Chloride 0.9% 50 ML IV ONE (17:38)
[2019-04-05 17:51] LABS: BLOOD UREA NITROGEN,BUN 24 mg/dL (7.0-18.0); CARBON DIOXIDE,CO2 28.2 mmol/L (21.0-32.0); CHLORIDE,CL 102 mmol/L (98-107); GLUCOSE RANDOM 97 mg/dL (74-106); POTASSIUM,K 3.6 mmol/L (3.5-5.1); SODIUM,NA 139 mmol/L (136-145)
[2019-04-05] MEDS ORDERED: Enoxaparin 100 MG/1 ML Syringe SUBCUT ONE (18:10)
[2019-04-05] MEDS ORDERED: Ondansetron 4 MG/2 ML SDV IVPUSH ONE (18:32)
--- NOTE | 2019-04-05 18:42 | PCM.HP.2 ---
<Elva Ortega - Last Filed: 04/05/19 18:36> H&P History of Present Illness - General Date of Service: 04/05/19 Admit Problem/Dx: Admission Diagnosis/Problem Admission Diagnosis/Problem Hypoxia - History of Present Illness Initial Comments - Free Text/Narative: The patient is a 73 year old female with past medical history of HTN, NV, Chronic abdominal pain, RA, fibromyalgia who presented to the ER with weakness and unresponsives episodes per son. EMS had glucose of 45, in the ER it was 65/ 75 without intervention. Son states that she has been in her usual state of health but over the last few days getting worse, SOB, intermittent chest pain, confusion. Was see by PCP today, CXR negative for acute findings but did find UTI. Started on antibiotics, took one dose around lunch time. After lunch vomited and then all her symptoms started. In the ER, no leukocytosis, no anemia, lactate wnl, elevated BUN/Cr, negative trop. Upon arrival 68% on RA, on oxygen via mask satting 97% on 7L. Has been tachycardic. EKG showed global ischemia. Given FD lovenox, metoprolol, duoneb , solumedrol, Zosyn, and IVF. Son reports patient is DNR/DNI, they do not want BIPAP, pressors, or transfer if needed. - Related Data Allergies/Adverse Reactions: Allergies Allergy/AdvReac Type Severity Reaction Status Date / Time No Known Allergies Allergy Verified 04/05/19 20:52 Home Medications: Home Meds Levothyroxine 75 mcg PO DAILY 10/08/13 [History] oxyCODONE HCl/Acetaminophen [Endocet 10-325 MG] 10 - 325 mg PO Q4HR PRN [History] predniSONE [Prednisone] 5 mg PO BID 07/23/15 [History] Aspirin [Adult Low Dose Aspirin EC] 81 mg PO DAILY 10/09/18 [History] Cimetidine 200 mg PO DAILY PRN 10/09/18 [History] Multivit with Minerals No.55 [Centrum Flavor Burst Adult] 1 tab PO DAILY [History] Past Medical History - Past Health History Medical/Surgical History: Denies Medical/Surgical History HEENT History: Reports: Cataract, Other (See Below) Other HEENT History: wears glasses, has upper denture Cardiovascular History: Reports: Hypertension, NV Other Cardiovascular History: states she has high blood pressure but does not take any medications- "they make me sick" Respiratory History: Reports: Other (See Below) Other Respiratory History: uses a nebulizer when she gets a cold Gastrointestinal History: Reports: GERD, Irritable Bowel Syndrome Other Gastrointestinal History: chronic abdominal pain, of unknown cause per son Genitourinary History: Reports: None [employer] History: Reports: Musculoskeletal History: Reports: Fibromyalgia, RA Other Musculoskeletal History: hx of spinal stenosis Neurological History: Reports: Neuropathy, Peripheral Psychiatric History: Reports: None Endocrine/Metabolic History: Reports: Hypothyroidism Other Endocrine/Metabolic History: pt is on on synthroid Hematologic History: Reports: None Immunologic History: Reports: Immunosuppression Oncologic (Cancer) History: Reports: None Dermatologic History: Reports: None - Infectious Disease History Infectious Disease History: Reports: Chicken Pox, Measles, Mumps - Past Surgical History Head Surgeries/Procedures: Reports: None HEENT Surgical History: Reports: Cataract Surgery, Tonsillectomy Cardiovascular Surgical History: Reports: Coronary Artery Stent Respiratory Surgical History: Reports: None GI Surgical History: Reports: Cholecystectomy Female Surgical History: Reports: Tubal Ligation Endocrine Surgical History: Reports: None Neurological Surgical History: Reports: None Musculoskeletal Surgical History: Reports: None Dermatological Surgical History: Reports: None Social & Family History - Family History Family Medical History: Unobtainable Neurological: Reports: CVA Other Neurological Family History: brother - Tobacco Use Smoking Status *Q: Current Every Day Smoker Years of Tobacco use: 60 Packs/Tins Daily: 0.5 - Caffeine Use Caffeine Use: Reports: None Caffeine Use Comment: 1cups/day - Recreational Drug Use Recreational Drug Use: No - Living Situation & Occupation Living situation: Reports: Occupation: Retired H&P Review of Systems - Review of Systems: Review Of Systems: See Below Free Text/Narrative: per son General: Reports: Chills HEENT: Reports: No Symptoms Pulmonary: Reports: Shortness of Breath. Denies: Cough Cardiovascular: Reports: Chest Pain Gastrointestinal: Reports: Abdominal Pain, Nausea, Vomiting Genitourinary: Reports: No Symptoms Musculoskeletal: Reports: No Symptoms Skin: Reports: No Symptoms Psychiatric: Reports: No Symptoms Neurological: Reports: Confusion Hematologic/Lymphatic: Reports: No Symptoms Immunologic: Reports: No Symptoms Exam - Exam Exam: See Below - Vital Signs Vital Signs: Last Vital Signs Temp 97.9 F 04/05/19 17:12 Pulse 105 H 04/05/19 18:12 Resp 20 04/05/19 18:12 BP 115/58 L 04/05/19 18:12 Pulse Ox 97 04/05/19 18:12 Weight: 72.575 kg - Exam Quality Assessment: Supplemental Oxygen General: Alert. No: Oriented Lungs: Rhonchi Cardiovascular: Regular Rhythm, Tachycardia GI/Abdominal Exam: Normal Bowel Sounds, Soft, Tender Extremities: No Pedal Edema Neuro Extensive - Mental Status: Alert Psychiatric: Alert - Patient Data Lab Results Last 24 hrs: Laboratory Results - last 24 hr 04/05/19 04/05/19 04/05/19 Range/Units 17:10 17:10 17:10 WBC 8.81 (4.0-11.0) K/uL RBC 4.73 (4.30-5.90) M/uL Hgb 15.3 (12.0-16.0) g/dL Hct 46.6 H (36.0-46.0) % MCV 98.5 H (80.0-98.0) fL MCH 32.3 H (27.0-32.0) pg MCHC 32.8 (31.0-37.0) g/dL RDW Std Deviation 49.8 (28.0-62.0) fl RDW Coeff of Maxim 14 (11.0-15.0) % Plt Count 153 (150-400) K/uL MPV 10.80 (7.40-12.00) fL Neut % (Auto) 87.5 H (48.0-80.0) % Lymph % (Auto) 7.7 L (16.0-40.0) % [place] % (Auto) 4.2 (0.0-15.0) % Eos % (Auto) 0.5 (0.0-7.0) % Baso % (Auto) 0.1 (0.0-1.5) % Neut # (Auto) 7.7 H (1.4-5.7) K/uL Lymph # (Auto) 0.7 (0.6-2.4) K/uL [place] # (Auto) 0.4 (0.0-0.8) K/uL Eos # (Auto) 0.0 (0.0-0.7) K/uL Baso # (Auto) 0.0 (0.0-0.1) K/uL Nucleated RBC % 0.0 /100WBC Nucleated RBCs # 0 K/uL INR 0.90 Lactate (0.20-2.00) mmol/L Sodium 139 (136-145) mmol/L Potassium 3.6 (3.5-5.1) mmol/L Chloride 102 (98-107) mmol/L Carbon Dioxide 28.2 (21.0-32.0) mmol/L BUN 24 H (7.0-18.0) mg/dL Creatinine 1.4 H (0.6-1.0) mg/dL Est Cr Clr Drug Dosing TNP Estimated GFR (MDRD) 36.8 ml/min Glucose 97 (74-106) mg/dL POC Glucose (60-110) mg/dL Calcium 9.6 (8.5-10.1) mg/dL Total Bilirubin 0.3 (0.2-1.0) mg/dL AST 28 (15-37) IU/L ALT 26 (14-63) IU/L Alkaline Phosphatase 66 (46-116) U/L Troponin I < 0.050 (0.000-0.056) ng/mL Total Protein 7.5 (6.4-8.2) g/dL Albumin 3.5 (3.4-5.0) g/dL Globulin 4.0 (2.6-4.0) g/dL Albumin/Globulin Ratio 0.9 (0.9-1.6) 04/05/19 04/05/19 Range/Units 17:10 17:53 WBC (4.0-11.0) K/uL RBC (4.30-5.90) M/uL Hgb (12.0-16.0) g/dL Hct (36.0-46.0) % MCV (80.0-98.0) fL MCH (27.0-32.0) pg MCHC (31.0-37.0) g/dL RDW Std Deviation (28.0-62.0) fl RDW Coeff of Maxim (11.0-15.0) % Plt Count (150-400) K/uL MPV (7.40-12.00) fL Neut % (Auto) (48.0-80.0) % Lymph % (Auto) (16.0-40.0) % [place] % (Auto) (0.0-15.0) % Eos % (Auto) (0.0-7.0) % Baso % (Auto) (0.0-1.5) % Neut # (Auto) (1.4-5.7) K/uL Lymph # (Auto) (0.6-2.4) K/uL [place] # (Auto) (0.0-0.8) K/uL Eos # (Auto) (0.0-0.7) K/uL Baso # (Auto) (0.0-0.1) K/uL Nucleated RBC % /100WBC Nucleated RBCs # K/uL INR Lactate 1.9 (0.20-2.00) mmol/L Sodium (136-145) mmol/L Potassium (3.5-5.1) mmol/L Chloride (98-107) mmol/L Carbon Dioxide (21.0-32.0) mmol/L BUN (7.0-18.0) mg/dL Creatinine (0.6-1.0) mg/dL Est Cr Clr Drug Dosing Estimated GFR (MDRD) ml/min Glucose (74-106) mg/dL POC Glucose 72 (60-110) mg/dL Calcium (8.5-10.1) mg/dL Total Bilirubin (0.2-1.0) mg/dL AST (15-37) IU/L ALT (14-63) IU/L Alkaline Phosphatase (46-116) U/L Troponin I (0.000-0.056) ng/mL Total Protein (6.4-8.2) g/dL Albumin (3.4-5.0) g/dL Globulin (2.6-4.0) g/dL Albumin/Globulin Ratio (0.9-1.6) Result Diagrams: 04/05/19 17:10 04/05/19 17:10 Isaias Results Last 24 hrs: Microbiology 04/05/19 17:54 Anaerobic Blood Culture - Final Blood - Venous - Lab Draw Sepsis Event Note - Evaluation Sepsis Screening Result: No Definite Risk - Focused Exam Vital Signs: Vital Signs Temp Pulse Resp BP Pulse Ox 04/05/19 18:12 105 H 20 115/58 L 97 04/05/19 17:58 111 H 20 132/106 H 04/05/19 17:43 114 H 21 H 95/55 L 04/05/19 17:27 107 H 20 127/66 04/05/19 17:12 97.9 F 72 14 124/68 68 L Date Exam was Performed: 04/05/19 Time Exam was Performed: 18:36 Problem List Initiated/Reviewed/Updated: Yes Orders Last 24hrs: Active Orders 24 hr Category Date Time Status Admission Status [Patient Status] [ADT] Stat ADT 04/05/19 18:25 Active EKG Documentation Completion [RC] STAT Care 04/05/19 17:48 Active RT Aerosol Therapy [RC] ASDIRECTED Care 04/05/19 17:17 Active CULTURE BLOOD [BC] Stat Lab 04/05/19 17:25 Received CULTURE BLOOD [BC] Stat Lab 04/05/19 17:54 Results INFLUENZA A+B AG SCREEN [RM] Stat Lab 04/05/19 17:17 Ordered UA RFX ISAIAS AND CULT IF INDIC [URIN] Stat Lab 04/05/19 17:16 Ordered Sodium Chloride 0.9% [Normal Saline] 500 ml Med 04/05/19 17:30 Active IV STAT Blood Culture x2 Reflex Set [OM.PC] Stat Oth 04/05/19 17:17 Ordered Medication Orders Sodium Chloride (Normal Saline) 500 mls @ 999 mls/hr IV STAT [facility] Last Admin: 04/05/19 17:32 Dose: 999 mls/hr Assessment/Plan Comment:: 1. Admit for observation 2. Code status- DNR/DNI 3. Vitals per routine 4. I/Os per routine 5. Diet- 6. DVT- FD Lovenox 7.Hypoxia with tachycardia and global ischemia on EKG- monitor on telemetry, trend troponins, obtain CTA. Will have duonebs and solumedrol. Son does not want BIPAP, pressors, or transfer/metallurgical lab technician if necessary. 8. UTI- continue Zosyn, UC and BC pending. 9. BK- IVF <Marielle Vidal - Last Filed: 04/06/19 13:37> H&P History of Present Illness - General Admit Problem/Dx: Admission Diagnosis/Problem Admission Diagnosis/Problem Hypoxia Exam - Vital Signs Vital Signs: Last Vital Signs Temp 36.9 C 04/06/19 08:00 Pulse 97 04/06/19 08:00 Resp 16 04/06/19 08:00 BP 90/41 L 04/06/19 08:28 Pulse Ox 92 L 04/06/19 08:00 - Patient Data Lab Results Last 24 hrs: Laboratory Results - last 24 hr 04/05/19 04/05/19 04/05/19 Range/Units 17:10 17:10 17:10 WBC 8.81 (4.0-11.0) K/uL RBC 4.73 (4.30-5.90) M/uL Hgb 15.3 (12.0-16.0) g/dL Hct 46.6 H (36.0-46.0) % MCV 98.5 H (80.0-98.0) fL MCH 32.3 H (27.0-32.0) pg MCHC 32.8 (31.0-37.0) g/dL RDW Std Deviation 49.8 (28.0-62.0) fl RDW Coeff of Maxim 14 (11.0-15.0) % Plt Count 153 (150-400) K/uL MPV 10.80 (7.40-12.00) fL Neut % (Auto) 87.5 H (48.0-80.0) % Lymph % (Auto) 7.7 L (16.0-40.0) % [place]odd[place] % (Auto) 4.2 (0.0-15.0) % Eos % (Auto) 0.5 (0.0-7.0) % Baso % (Auto) 0.1 (0.0-1.5) % Neut # (Auto) 7.7 H (1.4-5.7) K/uL Lymph # (Auto) 0.7 (0.6-2.4) K/uL [place]oddard # (Auto) 0.4 (0.0-0.8) K/uL Eos # (Auto) 0.0 (0.0-0.7) K/uL Baso # (Auto) 0.0 (0.0-0.1) K/uL Nucleated RBC % 0.0 /100WBC Nucleated RBCs # 0 K/uL INR 0.90 Lactate (0.20-2.00) mmol/L Sodium 139 (136-145) mmol/L Potassium 3.6 (3.5-5.1) mmol/L Chloride 102 (98-107) mmol/L Carbon Dioxide 28.2 (21.0-32.0) mmol/L BUN 24 H (7.0-18.0) mg/dL Creatinine 1.4 H (0.6-1.0) mg/dL Est Cr Clr Drug Dosing TNP Estimated GFR (MDRD) 36.8 ml/min Glucose 97 (74-106) mg/dL POC Glucose (60-110) mg/dL Calcium 9.6 (8.5-10.1) mg/dL Phosphorus (2.6-4.7) mg/dL Magnesium (1.8-2.4) mg/dL Total Bilirubin 0.3 (0.2-1.0) mg/dL AST 28 (15-37) IU/L ALT 26 (14-63) IU/L Alkaline Phosphatase 66 (46-116) U/L Troponin I < 0.050 (0.000-0.056) ng/mL Total Protein 7.5 (6.4-8.2) g/dL Albumin 3.5 (3.4-5.0) g/dL Globulin 4.0 (2.6-4.0) g/dL Albumin/Globulin Ratio 0.9 (0.9-1.6) TSH 3rd Generation (0.36-3.74) uIU/mL Urine Color Urine Appearance Urine pH (5.0-8.0) Ur Specific [place] (1.001-1.035) Urine Protein (NEGATIVE) mg/dL Urine Glucose (UA) (NEGATIVE) mg/dL Urine Ketones (NEGATIVE) mg/dL Urine Occult Blood (NEGATIVE) Urine Nitrite (NEGATIVE) Urine Bilirubin (NEGATIVE) Urine Urobilinogen (<2.0) EU/dL Ur Leukocyte Esterase (NEGATIVE) Urine RBC (0-2/HPF) Urine WBC (0-5/HPF) Ur Epithelial Cells (NONE-FEW) Urine Bacteria (NEGATIVE) 04/05/19 04/05/19 04/05/19 Range/Units 17:10 17:53 19:30 WBC (4.0-11.0) K/uL RBC (4.30-5.90) M/uL Hgb (12.0-16.0) g/dL Hct (36.0-46.0) % MCV (80.0-98.0) fL MCH (27.0-32.0) pg MCHC (31.0-37.0) g/dL RDW Std Deviation (28.0-62.0) fl RDW Coeff of Maxim (11.0-15.0) % Plt Count (150-400) K/uL MPV (7.40-12.00) fL Neut % (Auto) (48.0-80.0) % Lymph % (Auto) (16.0-40.0) % [place]odd[place] % (Auto) (0.0-15.0) % Eos % (Auto) (0.0-7.0) % Baso % (Auto) (0.0-1.5) % Neut # (Auto) (1.4-5.7) K/uL Lymph # (Auto) (0.6-2.4) K/uL [place]odd[place] # (Auto) (0.0-0.8) K/uL Eos # (Auto) (0.0-0.7) K/uL Baso # (Auto) (0.0-0.1) K/uL Nucleated RBC % /100WBC Nucleated RBCs # K/uL INR Lactate 1.9 (0.20-2.00) mmol/L Sodium (136-145) mmol/L Potassium (3.5-5.1) mmol/L Chloride (98-107) mmol/L Carbon Dioxide (21.0-32.0) mmol/L BUN (7.0-18.0) mg/dL Creatinine (0.6-1.0) mg/dL Est Cr Clr Drug Dosing Estimated GFR (MDRD) ml/min Glucose (74-106) mg/dL POC Glucose 72 (60-110) mg/dL Calcium (8.5-10.1) mg/dL Phosphorus (2.6-4.7) mg/dL Magnesium (1.8-2.4) mg/dL Total Bilirubin (0.2-1.0) mg/dL AST (15-37) IU/L ALT (14-63) IU/L Alkaline Phosphatase (46-116) U/L Troponin I (0.000-0.056) ng/mL Total Protein (6.4-8.2) g/dL Albumin (3.4-5.0) g/dL Globulin (2.6-4.0) g/dL Albumin/Globulin Ratio (0.9-1.6) TSH 3rd Generation (0.36-3.74) uIU/mL Urine Color YELLOW Urine Appearance CLEAR Urine pH 6.0 (5.0-8.0) Ur Specific [place] 1.020 (1.001-1.035) Urine Protein TRACE H (NEGATIVE) mg/dL Urine Glucose (UA) NEGATIVE (NEGATIVE) mg/dL Urine Ketones TRACE H (NEGATIVE) mg/dL Urine Occult Blood NEGATIVE (NEGATIVE) Urine Nitrite NEGATIVE (NEGATIVE) Urine Bilirubin NEGATIVE (NEGATIVE) Urine Urobilinogen 0.2 (<2.0) EU/dL Ur Leukocyte Esterase TRACE H (NEGATIVE) Urine RBC 0-2 (0-2/HPF) Urine WBC 4-8 (0-5/HPF) Ur Epithelial Cells RARE (NONE-FEW) Urine Bacteria 3+ H (NEGATIVE) 04/05/19 04/05/19 04/06/19 Range/Units 20:10 21:00 03:51 WBC (4.0-11.0) K/uL RBC (4.30-5.90) M/uL Hgb (12.0-16.0) g/dL Hct (36.0-46.0) % MCV (80.0-98.0) fL MCH (27.0-32.0) pg MCHC (31.0-37.0) g/dL RDW Std Deviation (28.0-62.0) fl RDW Coeff of Maxim (11.0-15.0) % Plt Count (150-400) K/uL MPV (7.40-12.00) fL Neut % (Auto) (48.0-80.0) % Lymph % (Auto) (16.0-40.0) % [place] % (Auto) (0.0-15.0) % Eos % (Auto) (0.0-7.0) % Baso % (Auto) (0.0-1.5) % Neut # (Auto) (1.4-5.7) K/uL Lymph # (Auto) (0.6-2.4) K/uL [place] # (Auto) (0.0-0.8) K/uL Eos # (Auto) (0.0-0.7) K/uL Baso # (Auto) (0.0-0.1) K/uL Nucleated RBC % /100WBC Nucleated RBCs # K/uL INR Lactate (0.20-2.00) mmol/L Sodium (136-145) mmol/L Potassium (3.5-5.1) mmol/L Chloride (98-107) mmol/L Carbon Dioxide (21.0-32.0) mmol/L BUN (7.0-18.0) mg/dL Creatinine (0.6-1.0) mg/dL Est Cr Clr Drug Dosing Estimated GFR (MDRD) ml/min Glucose (74-106) mg/dL POC Glucose 194 H (60-110) mg/dL Calcium (8.5-10.1) mg/dL Phosphorus (2.6-4.7) mg/dL Magnesium (1.8-2.4) mg/dL Total Bilirubin (0.2-1.0) mg/dL AST (15-37) IU/L ALT (14-63) IU/L Alkaline Phosphatase (46-116) U/L Troponin I < 0.050 (0.000-0.056) ng/mL Total Protein (6.4-8.2) g/dL Albumin (3.4-5.0) g/dL Globulin (2.6-4.0) g/dL Albumin/Globulin Ratio (0.9-1.6) TSH 3rd Generation 0.69 (0.36-3.74) uIU/mL Urine Color Urine Appearance Urine pH (5.0-8.0) Ur Specific [place] (1.001-1.035) Urine Protein (NEGATIVE) mg/dL Urine Glucose (UA) (NEGATIVE) mg/dL Urine Ketones (NEGATIVE) mg/dL Urine Occult Blood (NEGATIVE) Urine Nitrite (NEGATIVE) Urine Bilirubin (NEGATIVE) Urine Urobilinogen (<2.0) EU/dL Ur Leukocyte Esterase (NEGATIVE) Urine RBC (0-2/HPF) Urine WBC (0-5/HPF) Ur Epithelial Cells (NONE-FEW) Urine Bacteria (NEGATIVE) 04/06/19 04/06/19 Range/Units 09:48 09:48 WBC 14.79 H (4.0-11.0) K/uL RBC 3.63 L (4.30-5.90) M/uL Hgb 11.7 L (12.0-16.0) g/dL Hct 36.0 (36.0-46.0) % MCV 99.2 H (80.0-98.0) fL MCH 32.2 H (27.0-32.0) pg MCHC 32.5 (31.0-37.0) g/dL RDW Std Deviation 51.1 (28.0-62.0) fl RDW Coeff of Maxim 14 (11.0-15.0) % Plt Count 139 L (150-400) K/uL MPV 10.60 (7.40-12.00) fL Neut % (Auto) 94.7 H (48.0-80.0) % Lymph % (Auto) 1.9 L (16.0-40.0) % [place] % (Auto) 3.2 (0.0-15.0) % Eos % (Auto) 0.1 (0.0-7.0) % Baso % (Auto) 0.1 (0.0-1.5) % Neut # (Auto) 14.0 H (1.4-5.7) K/uL Lymph # (Auto) 0.3 L (0.6-2.4) K/uL [place]odd[place] # (Auto) 0.5 (0.0-0.8) K/uL Eos # (Auto) 0.0 (0.0-0.7) K/uL Baso # (Auto) 0.0 (0.0-0.1) K/uL Nucleated RBC % 0.0 /100WBC Nucleated RBCs # 0 K/uL INR Lactate (0.20-2.00) mmol/L Sodium 140 (136-145) mmol/L Potassium 3.7 (3.5-5.1) mmol/L Chloride 106 (98-107) mmol/L Carbon Dioxide 19.6 L (21.0-32.0) mmol/L BUN 15 (7.0-18.0) mg/dL Creatinine 1.2 H (0.6-1.0) mg/dL Est Cr Clr Drug Dosing TNP Estimated GFR (MDRD) 43.9 ml/min Glucose 173 H (74-106) mg/dL POC Glucose (60-110) mg/dL Calcium 8.7 (8.5-10.1) mg/dL Phosphorus 2.9 (2.6-4.7) mg/dL Magnesium 1.7 L (1.8-2.4) mg/dL Total Bilirubin (0.2-1.0) mg/dL AST (15-37) IU/L ALT (14-63) IU/L Alkaline Phosphatase (46-116) U/L Troponin I (0.000-0.056) ng/mL Total Protein (6.4-8.2) g/dL Albumin (3.4-5.0) g/dL Globulin (2.6-4.0) g/dL Albumin/Globulin Ratio (0.9-1.6) TSH 3rd Generation (0.36-3.74) uIU/mL Urine Color Urine Appearance Urine pH (5.0-8.0) Ur Specific [place] (1.001-1.035) Urine Protein (NEGATIVE) mg/dL Urine Glucose (UA) (NEGATIVE) mg/dL Urine Ketones (NEGATIVE) mg/dL Urine Occult Blood (NEGATIVE) Urine Nitrite (NEGATIVE) Urine Bilirubin (NEGATIVE) Urine Urobilinogen (<2.0) EU/dL Ur Leukocyte Esterase (NEGATIVE) Urine RBC (0-2/HPF) Urine WBC (0-5/HPF) Ur Epithelial Cells (NONE-FEW) Urine Bacteria (NEGATIVE) Result Diagrams: 04/06/19 09:48 04/06/19 09:48 Isaias Results Last 24 hrs: Microbiology 04/05/19 18:25 Influenza Type A Antigen Screen - Final Nasopharyngeal Swab NEGATIVE INFLUENZA A VIRUS AG REFERENCE RANGE: NEGATIVE Influenza Type B Antigen Screen - Final NEGATIVE INFLUENZA B VIRUS AG REFERENCE RANGE: NEGATIVE 04/05/19 17:54 Anaerobic Blood Culture - Final Blood - Venous - Lab Draw Sepsis Event Note - Focused Exam Vital Signs: Vital Signs Temp Pulse Resp BP Pulse Ox 04/06/19 08:28 90/41 L 04/06/19 08:00 36.9 C 97 16 85/46 L 92 L 04/06/19 06:00 89 20 89/46 L 96 04/06/19 03:44 36.8 C 101 H 20 72/44 L 98 Date Exam was Performed: 04/06/19 Time Exam was Performed: 13:37 - Problem List (1) Dehydration SNOMED Code(s): 83268063 ICD Code: E86.0 - DEHYDRATION Status: Acute Current Visit: No (2) Hypoxia SNOMED Code(s): 599664128 ICD Code: R09.02 - HYPOXEMIA Status: Acute Current Visit: No (3) Sinusitis SNOMED Code(s): 08370062 ICD Code: J32.9 - CHRONIC SINUSITIS, UNSPECIFIED Status: Acute Current Visit: No Qualifiers: Sinusitis location: maxillary Chronicity: acute Recurrence: non- recurrent Qualified Code(s): J01.00 - Acute maxillary sinusitis, unspecified Orders Last 24hrs: Active Orders 24 hr Category Date Time Status Admission Status [Patient Status] [ADT] Stat ADT 04/05/19 18:25 Active Cardiac Monitoring [RC] Q8H Care 04/05/19 18:55 Active Intake and Output [RC] Q12H Care 04/05/19 18:55 Active RT Aerosol Therapy [RC] ASDIRECTED Care 04/05/19 18:56 Active Telemetry Monitoring [Cardiac Monitoring] [RC] . Care 04/05/19 20:09 Active DIRECTED Vital Signs [RC] PER UNIT ROUTINE Care 04/05/19 18:55 Active Soft Diet [DIET] Diet 04/06/19 Breakfast Active CULTURE BLOOD [BC] Stat Lab 04/05/19 17:25 Received CULTURE BLOOD [BC] Stat Lab 04/05/19 17:54 Results CULTURE URINE [RM] Routine Lab 04/05/19 19:30 Received Acetaminophen [Tylenol] Med 04/05/19 18:55 Active 650 mg PO Q4H PRN Acetaminophen/oxyCODONE [Percocet 325-10 MG] Med 04/06/19 03:10 Active 1 tab PO Q4H PRN Albuterol/Ipratropium [DuoNeb 3.0-0.5 MG/3 ML] Med 04/05/19 22:00 Active 3 ml NEB Q4HRRT Aspirin [Halfprin] Med 04/06/19 09:00 Active 81 mg PO DAILY Famotidine [Pepcid] Med 04/06/19 09:00 Active 20 mg PO DAILY PRN Lactated Ringers [Ringers, Lactated] 1,000 ml Med 04/06/19 04:15 Active IV BOLUS Levothyroxine Med 04/06/19 09:00 Active 75 mcg PO DAILY Ondansetron [Zofran] Med 04/05/19 18:55 Active 4 mg IVPUSH Q4H PRN Piperacillin/Tazobactam [Piperacil-Tazobact] 3.375 gm Med 04/06/19 00:01 Active Sodium Chloride 0.9% [Normal Saline] 50 ml IV Q6H Sodium Chloride 0.9% [Normal Saline] 1,000 ml Med 04/06/19 06:15 Active IV ASDIRECTED methylPREDNISolone Sod Succ [Solu-MEDROL] Med 04/05/19 21:00 Active 40 mg IVPUSH Q8H predniSONE Med 04/06/19 09:00 Active 5 mg PO BID Blood Culture x2 Reflex Set [OM.PC] Stat Oth 04/05/19 17:17 Ordered Resuscitation Status Stat Resus Stat 04/05/19 18:55 Ordered Medication Orders Acetaminophen (Tylenol) 650 mg PO Q4H PRN PRN Reason: Pain/Fever Last Admin: 04/05/19 23:08 Dose: 650 mg Albuterol/Ipratropium (Duoneb 3.0-0.5 Mg/3 Ml) 3 ml NEB Q4HRRT [facility] Last Admin: 04/06/19 09:50 Dose: 3 ml Admin: 04/06/19 06:19 Dose: 3 ml Admin: 04/06/19 02:01 Dose: 3 ml Admin: 04/05/19 21:05 Dose: 3 ml Aspirin (Halfprin) 81 mg PO DAILY [facility] Last Admin: 04/06/19 08:21 Dose: 81 mg Famotidine (Pepcid) 20 mg PO DAILY PRN PRN Reason: Heartburn Piperacillin Sod/Tazobactam (Sod 3.375 gm/ Sodium Chloride) 50 mls @ 100 mls/ hr IV Q6H [facility] Last Admin: 04/06/19 11:31 Dose: 100 mls/hr Infusion: 04/06/19 07:10 Dose: 100 mls/hr Admin: 04/06/19 06:40 Dose: 100 mls/hr Infusion: 04/06/19 01:19 Dose: 100 mls/hr Admin: 04/06/19 00:49 Dose: 100 mls/hr Lactated Ringer's (Ringers, Lactated) 1,000 mls @ 999 mls/hr IV BOLUS [facility] Last Admin: 04/06/19 04:29 Dose: 999 mls/hr Sodium Chloride (Normal Saline) 1,000 mls @ 125 mls/hr IV ASDIRECTED [facility] Last Admin: 04/06/19 09:45 Dose: 125 mls/hr Levothyroxine Sodium (Levothyroxine) 75 mcg PO DAILY [facility] Last Admin: 04/06/19 08:22 Dose: 75 mcg Methylprednisolone Sodium Succinate (Solu-Medrol) 40 mg IVPUSH Q8H [facility] Last Admin: 04/06/19 12:25 Dose: 40 mg Admin: 04/06/19 06:01 Dose: 40 mg Admin: 04/05/19 21:46 Dose: 40 mg Ondansetron HCl (Zofran) 4 mg IVPUSH Q4H PRN PRN Reason: Nausea/Vomiting Oxycodone/Acetaminophen (Percocet 325-10 Mg) 1 tab PO Q4H PRN PRN Reason: Pain Last Admin: 04/06/19 10:24 Dose: 1 tab Admin: 04/06/19 06:01 Dose: 1 tab Prednisone (Prednisone) 5 mg PO BID [facility] Last Admin: 04/06/19 08:21 Dose: 5 mg Assessment/Plan Comment:: I performed a history and physical exam of the patient and discussed management with resident. I have reviewed the residents note and agree with documented findings and plan unless otherwise specified in my note.
[2019-04-05] MEDS ORDERED: Sodium Chloride 0.9% 1,000 ML IV ONE (18:54)
[2019-04-05] MEDS ORDERED: Ondansetron 4 MG/2 ML SDV IVPUSH PRN (18:55)
[2019-04-05] MEDS ORDERED: Acetaminophen 325 MG Tab PO PRN (18:55)
[2019-04-05] MEDS ORDERED: methylPREDNISolone Sodium Succinate 40 MG/1 ML SDV IVPUSH SCH (19:00)
[2019-04-05] MEDS ORDERED: Sodium Chloride 0.9% 1,000 ML IV SCH (19:00)
--- NOTE | 2019-04-05 20:12 | CT ---
CT chest Technique: Multiple axial sections were obtained from above the lung apices inferiorly through the lung bases. Intravenous contrast was not utilized. Comparison: Prior chest x-ray performed earlier on the same day (8:59 AM) Findings: Surgical clips are seen from prior cholecystectomy. Noncontrast appearance of the upper abdomen is otherwise within normal limits. No pericardial thickening is seen. Diffuse coronary artery calcification is seen. Atherosclerotic calcification is noted within the thoracic aorta and branch vessels. No aneurysm is seen. Mediastinum shows no adenopathy. No axillary adenopathy is seen. Lungs show slight parenchymal density within the lingula most likely representing an area of scarring. Lungs otherwise are clear. No acute parenchymal change is appreciated. No pleural effusions are seen. Bone window settings were reviewed severe compression deformity is noted within the thoracolumbar junction. This is most likely old. Mild retrolisthesis of the posterior vertebral line is seen into the central canal by approximately 5 mm. Impression: 1. Compression deformity at the thoracolumbar junction. This is most likely old. 2. Other findings as noted above. 3. Nothing acute is seen on noncontrast chest CT. Diagnostic code #2 This report was dictated in [place] [employer]
[2019-04-05] MEDS: Albuterol/Ipratropium 3.0-0.5 MG/3 ML Neb Soln NEB SCH (21:05)
[2019-04-05] MEDS: methylPREDNISolone Sodium Succinate 40 MG/1 ML SDV IVPUSH SCH (21:46)
[2019-04-06] MEDS ORDERED: 25% Dextrose in Water 10 ML Syringe IVPUSH ONE (00:09)
[2019-04-06] MEDS ORDERED: Acetaminophen/oxyCODONE 325-10 MG Tab PO PRN (00:10)
[2019-04-06] MEDS ORDERED: Lactated Ringers 1,000 ML IV ONE ×2 (00:28→06:33)
[2019-04-06] MEDS: Piperacillin/Tazobactam 3.375 GM in Sodium Chloride 0.9% 50 ML IV SCH ×3 (00:49→11:31)
[2019-04-06] MEDS: Albuterol/Ipratropium 3.0-0.5 MG/3 ML Neb Soln NEB SCH ×3 (02:01→09:50)
[2019-04-06] MEDS ORDERED: Haloperidol 1 MG Tab PO ONE (04:08)
[2019-04-06] MEDS ORDERED: Lactated Ringers 1,000 ML IV SCH (04:15)
[2019-04-06] MEDS ORDERED: Acetaminophen/oxyCODONE 325-10 MG Tab ONE (05:58)
[2019-04-06] MEDS ORDERED: Enoxaparin 60 MG/0.6 ML Syringe SUBCUT SCH (06:00)
[2019-04-06] MEDS: methylPREDNISolone Sodium Succinate 40 MG/1 ML SDV IVPUSH SCH ×2 (06:01→12:25)
[2019-04-06] MEDS: Acetaminophen/oxyCODONE 325-10 MG Tab PO PRN ×2 (06:01→10:24)
[2019-04-06] MEDS ORDERED: Sodium Chloride 0.9% 1,000 ML IV SCH (06:15)
[2019-04-06 08:31] VITALS: BP 90/41; PULSE 97
[2019-04-06] MEDS ORDERED: Aspirin 81 MG Tab.EC PO SCH (09:00)
[2019-04-06] MEDS ORDERED: Levothyroxine 75 MCG Tab PO SCH (09:00)
[2019-04-06] MEDS ORDERED: predniSONE 5 MG Tab PO SCH (09:00)
[2019-04-06] MEDS ORDERED: Famotidine 20 MG Tab PO PRN (09:00)
[2019-04-06] MEDS: Metoprolol Tartrate 5 MG/5 ML SDV IVPUSH SCH ×2 (10:05→10:06)
[2019-04-06 10:16] LABS: BLOOD UREA NITROGEN,BUN 15 mg/dL (7.0-18.0); CARBON DIOXIDE,CO2 19.6 mmol/L (21.0-32.0); CHLORIDE,CL 106 mmol/L (98-107); GLUCOSE RANDOM 173 mg/dL (74-106); POTASSIUM,K 3.7 mmol/L (3.5-5.1); SODIUM,NA 140 mmol/L (136-145)
[2019-04-06] MEDS ORDERED: Nicotine 14 MG/24 Hr Patch TRDERM ONE (11:21)
--- NOTE | 2019-04-06 12:20 | PCM.PN ---
- General Info Date of Service: 04/06/19 Admission Dx/Problem (Free Text): Admission Diagnosis/Problem Admission Diagnosis/Problem Hypoxia Subjective Update: Mentation improved, more alert, wants to smoke a cigarette, family at bedside - Review of Systems General: Reports: Fatigue. Denies: Fever, Weakness HEENT: Reports: Ear Pain, Post Nasal Drip, Sinus Congestion Pulmonary: Denies: Shortness of Breath, Pleuritic Chest Pain Cardiovascular: Reports: Dyspnea on Exertion. Denies: Chest Pain, Palpitations Gastrointestinal: Denies: Abdominal Pain, Constipation, Decreased Appetite Genitourinary: Denies: Frequency, Burning Musculoskeletal: Reports: Shoulder Pain, Arm Pain, Hand Pain, Back Pain. Denies : Neck Pain Skin: Denies: Cyanosis, Jaundice, Mottled Neurological: Denies: Confusion, Headache - Patient Data Vitals - Most Recent: Last Vital Signs Temp 36.9 C 04/06/19 08:00 Pulse 97 04/06/19 08:00 Resp 16 04/06/19 08:00 BP 90/41 L 04/06/19 08:28 Pulse Ox 92 L 04/06/19 08:00 Weight - Most Recent: 60.5 kg I&O - Last 24 Hours: Intake & Output 04/05/19 04/06/19 04/06/19 22:59 06:59 14:59 Intake Total 1750 1050 Output Total 400 Balance 1350 1050 Lab Results Last 24 Hours: Laboratory Results - last 24 hr 04/05/19 04/05/19 04/05/19 Range/Units 17:10 17:10 17:10 WBC 8.81 (4.0-11.0) K/uL RBC 4.73 (4.30-5.90) M/uL Hgb 15.3 (12.0-16.0) g/dL Hct 46.6 H (36.0-46.0) % MCV 98.5 H (80.0-98.0) fL MCH 32.3 H (27.0-32.0) pg MCHC 32.8 (31.0-37.0) g/dL RDW Std Deviation 49.8 (28.0-62.0) fl RDW Coeff of Maxim 14 (11.0-15.0) % Plt Count 153 (150-400) K/uL MPV 10.80 (7.40-12.00) fL Neut % (Auto) 87.5 H (48.0-80.0) % Lymph % (Auto) 7.7 L (16.0-40.0) % [place] % (Auto) 4.2 (0.0-15.0) % Eos % (Auto) 0.5 (0.0-7.0) % Baso % (Auto) 0.1 (0.0-1.5) % Neut # (Auto) 7.7 H (1.4-5.7) K/uL Lymph # (Auto) 0.7 (0.6-2.4) K/uL [place] # (Auto) 0.4 (0.0-0.8) K/uL Eos # (Auto) 0.0 (0.0-0.7) K/uL Baso # (Auto) 0.0 (0.0-0.1) K/uL Nucleated RBC % 0.0 /100WBC Nucleated RBCs # 0 K/uL INR 0.90 Lactate (0.20-2.00) mmol/L Sodium 139 (136-145) mmol/L Potassium 3.6 (3.5-5.1) mmol/L Chloride 102 (98-107) mmol/L Carbon Dioxide 28.2 (21.0-32.0) mmol/L BUN 24 H (7.0-18.0) mg/dL Creatinine 1.4 H (0.6-1.0) mg/dL Est Cr Clr Drug Dosing TNP Estimated GFR (MDRD) 36.8 ml/min Glucose 97 (74-106) mg/dL POC Glucose (60-110) mg/dL Calcium 9.6 (8.5-10.1) mg/dL Phosphorus (2.6-4.7) mg/dL Magnesium (1.8-2.4) mg/dL Total Bilirubin 0.3 (0.2-1.0) mg/dL AST 28 (15-37) IU/L ALT 26 (14-63) IU/L Alkaline Phosphatase 66 (46-116) U/L Troponin I < 0.050 (0.000-0.056) ng/mL Total Protein 7.5 (6.4-8.2) g/dL Albumin 3.5 (3.4-5.0) g/dL Globulin 4.0 (2.6-4.0) g/dL Albumin/Globulin Ratio 0.9 (0.9-1.6) TSH 3rd Generation (0.36-3.74) uIU/mL Urine Color Urine Appearance Urine pH (5.0-8.0) Ur Specific Atkinson (1.001-1.035) Urine Protein (NEGATIVE) mg/dL Urine Glucose (UA) (NEGATIVE) mg/dL Urine Ketones (NEGATIVE) mg/dL Urine Occult Blood (NEGATIVE) Urine Nitrite (NEGATIVE) Urine Bilirubin (NEGATIVE) Urine Urobilinogen (<2.0) EU/dL Ur Leukocyte Esterase (NEGATIVE) Urine RBC (0-2/HPF) Urine WBC (0-5/HPF) Ur Epithelial Cells (NONE-FEW) Urine Bacteria (NEGATIVE) 04/05/19 04/05/19 04/05/19 Range/Units 17:10 17:53 19:30 WBC (4.0-11.0) K/uL RBC (4.30-5.90) M/uL Hgb (12.0-16.0) g/dL Hct (36.0-46.0) % MCV (80.0-98.0) fL MCH (27.0-32.0) pg MCHC (31.0-37.0) g/dL RDW Std Deviation (28.0-62.0) fl RDW Coeff of Maxim (11.0-15.0) % Plt Count (150-400) K/uL MPV (7.40-12.00) fL Neut % (Auto) (48.0-80.0) % Lymph % (Auto) (16.0-40.0) % [place] % (Auto) (0.0-15.0) % Eos % (Auto) (0.0-7.0) % Baso % (Auto) (0.0-1.5) % Neut # (Auto) (1.4-5.7) K/uL Lymph # (Auto) (0.6-2.4) K/uL [place] # (Auto) (0.0-0.8) K/uL Eos # (Auto) (0.0-0.7) K/uL Baso # (Auto) (0.0-0.1) K/uL Nucleated RBC % /100WBC Nucleated RBCs # K/uL INR Lactate 1.9 (0.20-2.00) mmol/L Sodium (136-145) mmol/L Potassium (3.5-5.1) mmol/L Chloride (98-107) mmol/L Carbon Dioxide (21.0-32.0) mmol/L BUN (7.0-18.0) mg/dL Creatinine (0.6-1.0) mg/dL Est Cr Clr Drug Dosing Estimated GFR (MDRD) ml/min Glucose (74-106) mg/dL POC Glucose 72 (60-110) mg/dL Calcium (8.5-10.1) mg/dL Phosphorus (2.6-4.7) mg/dL Magnesium (1.8-2.4) mg/dL Total Bilirubin (0.2-1.0) mg/dL AST (15-37) IU/L ALT (14-63) IU/L Alkaline Phosphatase (46-116) U/L Troponin I (0.000-0.056) ng/mL Total Protein (6.4-8.2) g/dL Albumin (3.4-5.0) g/dL Globulin (2.6-4.0) g/dL Albumin/Globulin Ratio (0.9-1.6) TSH 3rd Generation (0.36-3.74) uIU/mL Urine Color YELLOW Urine Appearance CLEAR Urine pH 6.0 (5.0-8.0) Ur Specific [place]kinson 1.020 (1.001-1.035) Urine Protein TRACE H (NEGATIVE) mg/dL Urine Glucose (UA) NEGATIVE (NEGATIVE) mg/dL Urine Ketones TRACE H (NEGATIVE) mg/dL Urine Occult Blood NEGATIVE (NEGATIVE) Urine Nitrite NEGATIVE (NEGATIVE) Urine Bilirubin NEGATIVE (NEGATIVE) Urine Urobilinogen 0.2 (<2.0) EU/dL Ur Leukocyte Esterase TRACE H (NEGATIVE) Urine RBC 0-2 (0-2/HPF) Urine WBC 4-8 (0-5/HPF) Ur Epithelial Cells RARE (NONE-FEW) Urine Bacteria 3+ H (NEGATIVE) 04/05/19 04/05/19 04/06/19 Range/Units 20:10 21:00 03:51 WBC (4.0-11.0) K/uL RBC (4.30-5.90) M/uL Hgb (12.0-16.0) g/dL Hct (36.0-46.0) % MCV (80.0-98.0) fL MCH (27.0-32.0) pg MCHC (31.0-37.0) g/dL RDW Std Deviation (28.0-62.0) fl RDW Coeff of Maxim (11.0-15.0) % Plt Count (150-400) K/uL MPV (7.40-12.00) fL Neut % (Auto) (48.0-80.0) % Lymph % (Auto) (16.0-40.0) % [place] % (Auto) (0.0-15.0) % Eos % (Auto) (0.0-7.0) % Baso % (Auto) (0.0-1.5) % Neut # (Auto) (1.4-5.7) K/uL Lymph # (Auto) (0.6-2.4) K/uL [place] # (Auto) (0.0-0.8) K/uL Eos # (Auto) (0.0-0.7) K/uL Baso # (Auto) (0.0-0.1) K/uL Nucleated RBC % /100WBC Nucleated RBCs # K/uL INR Lactate (0.20-2.00) mmol/L Sodium (136-145) mmol/L Potassium (3.5-5.1) mmol/L Chloride (98-107) mmol/L Carbon Dioxide (21.0-32.0) mmol/L BUN (7.0-18.0) mg/dL Creatinine (0.6-1.0) mg/dL Est Cr Clr Drug Dosing Estimated GFR (MDRD) ml/min Glucose (74-106) mg/dL POC Glucose 194 H (60-110) mg/dL Calcium (8.5-10.1) mg/dL Phosphorus (2.6-4.7) mg/dL Magnesium (1.8-2.4) mg/dL Total Bilirubin (0.2-1.0) mg/dL AST (15-37) IU/L ALT (14-63) IU/L Alkaline Phosphatase (46-116) U/L Troponin I < 0.050 (0.000-0.056) ng/mL Total Protein (6.4-8.2) g/dL Albumin (3.4-5.0) g/dL Globulin (2.6-4.0) g/dL Albumin/Globulin Ratio (0.9-1.6) TSH 3rd Generation 0.69 (0.36-3.74) uIU/mL Urine Color Urine Appearance Urine pH (5.0-8.0) Ur Specific [place]kinson (1.001-1.035) Urine Protein (NEGATIVE) mg/dL Urine Glucose (UA) (NEGATIVE) mg/dL Urine Ketones (NEGATIVE) mg/dL Urine Occult Blood (NEGATIVE) Urine Nitrite (NEGATIVE) Urine Bilirubin (NEGATIVE) Urine Urobilinogen (<2.0) EU/dL Ur Leukocyte Esterase (NEGATIVE) Urine RBC (0-2/HPF) Urine WBC (0-5/HPF) Ur Epithelial Cells (NONE-FEW) Urine Bacteria (NEGATIVE) 04/06/19 04/06/19 Range/Units 09:48 09:48 WBC 14.79 H (4.0-11.0) K/uL RBC 3.63 L (4.30-5.90) M/uL Hgb 11.7 L (12.0-16.0) g/dL Hct 36.0 (36.0-46.0) % MCV 99.2 H (80.0-98.0) fL MCH 32.2 H (27.0-32.0) pg MCHC 32.5 (31.0-37.0) g/dL RDW Std Deviation 51.1 (28.0-62.0) fl RDW Coeff of Maxim 14 (11.0-15.0) % Plt Count 139 L (150-400) K/uL MPV 10.60 (7.40-12.00) fL Neut % (Auto) 94.7 H (48.0-80.0) % Lymph % (Auto) 1.9 L (16.0-40.0) % [place] % (Auto) 3.2 (0.0-15.0) % Eos % (Auto) 0.1 (0.0-7.0) % Baso % (Auto) 0.1 (0.0-1.5) % Neut # (Auto) 14.0 H (1.4-5.7) K/uL Lymph # (Auto) 0.3 L (0.6-2.4) K/uL [place] # (Auto) 0.5 (0.0-0.8) K/uL Eos # (Auto) 0.0 (0.0-0.7) K/uL Baso # (Auto) 0.0 (0.0-0.1) K/uL Nucleated RBC % 0.0 /100WBC Nucleated RBCs # 0 K/uL INR Lactate (0.20-2.00) mmol/L Sodium 140 (136-145) mmol/L Potassium 3.7 (3.5-5.1) mmol/L Chloride 106 (98-107) mmol/L Carbon Dioxide 19.6 L (21.0-32.0) mmol/L BUN 15 (7.0-18.0) mg/dL Creatinine 1.2 H (0.6-1.0) mg/dL Est Cr Clr Drug Dosing TNP Estimated GFR (MDRD) 43.9 ml/min Glucose 173 H (74-106) mg/dL POC Glucose (60-110) mg/dL Calcium 8.7 (8.5-10.1) mg/dL Phosphorus 2.9 (2.6-4.7) mg/dL Magnesium 1.7 L (1.8-2.4) mg/dL Total Bilirubin (0.2-1.0) mg/dL AST (15-37) IU/L ALT (14-63) IU/L Alkaline Phosphatase (46-116) U/L Troponin I (0.000-0.056) ng/mL Total Protein (6.4-8.2) g/dL Albumin (3.4-5.0) g/dL Globulin (2.6-4.0) g/dL Albumin/Globulin Ratio (0.9-1.6) TSH 3rd Generation (0.36-3.74) uIU/mL Urine Color Urine Appearance Urine pH (5.0-8.0) Ur Specific [place] (1.001-1.035) Urine Protein (NEGATIVE) mg/dL Urine Glucose (UA) (NEGATIVE) mg/dL Urine Ketones (NEGATIVE) mg/dL Urine Occult Blood (NEGATIVE) Urine Nitrite (NEGATIVE) Urine Bilirubin (NEGATIVE) Urine Urobilinogen (<2.0) EU/dL Ur Leukocyte Esterase (NEGATIVE) Urine RBC (0-2/HPF) Urine WBC (0-5/HPF) Ur Epithelial Cells (NONE-FEW) Urine Bacteria (NEGATIVE) Isaias Results Last 24 Hours: Microbiology 04/05/19 18:25 Influenza Type A Antigen Screen - Final Nasopharyngeal Swab NEGATIVE INFLUENZA A VIRUS AG REFERENCE RANGE: NEGATIVE Influenza Type B Antigen Screen - Final NEGATIVE INFLUENZA B VIRUS AG REFERENCE RANGE: NEGATIVE 04/05/19 17:54 Anaerobic Blood Culture - Final Blood - Venous - Lab Draw Med Orders - Current: Current Medications Acetaminophen (Tylenol) 650 mg PO Q4H PRN PRN Reason: Pain/Fever Last Admin: 04/05/19 23:08 Dose: 650 mg Albuterol/Ipratropium (Duoneb 3.0-0.5 Mg/3 Ml) 3 ml NEB Q4HRRT [facility] Last Admin: 04/06/19 09:50 Dose: 3 ml Aspirin (Halfprin) 81 mg PO DAILY [facility] Last Admin: 04/06/19 08:21 Dose: 81 mg Famotidine (Pepcid) 20 mg PO DAILY PRN PRN Reason: Heartburn Piperacillin Sod/Tazobactam (Sod 3.375 gm/ Sodium Chloride) 50 mls @ 100 mls/ hr IV Q6H [facility] Last Admin: 04/06/19 11:31 Dose: 100 mls/hr Lactated Ringer's (Ringers, Lactated) 1,000 mls @ 999 mls/hr IV BOLUS [facility] Last Admin: 04/06/19 04:29 Dose: 999 mls/hr Sodium Chloride (Normal Saline) 1,000 mls @ 125 mls/hr IV ASDIRECTED [facility] Last Admin: 04/06/19 09:45 Dose: 125 mls/hr Levothyroxine Sodium (Levothyroxine) 75 mcg PO DAILY [facility] Last Admin: 04/06/19 08:22 Dose: 75 mcg Methylprednisolone Sodium Succinate (Solu-Medrol) 40 mg IVPUSH Q8H [facility] Last Admin: 04/06/19 06:01 Dose: 40 mg Ondansetron HCl (Zofran) 4 mg IVPUSH Q4H PRN PRN Reason: Nausea/Vomiting Oxycodone/Acetaminophen (Percocet 325-10 Mg) 1 tab PO Q4H PRN PRN Reason: Pain Last Admin: 04/06/19 10:24 Dose: 1 tab Prednisone (Prednisone) 5 mg PO BID [facility] Last Admin: 04/06/19 08:21 Dose: 5 mg Discontinued Medications Albuterol/Ipratropium (Duoneb 3.0-0.5 Mg/3 Ml) 3 ml NEB ONETIME ONE Stop: 04/05/19 17:17 Last Admin: 04/05/19 18:34 Dose: Not Given Dextrose/Water (Dextrose 25% In Water) 10 ml IVPUSH ONETIME ONE Stop: 04/06/19 00:10 Last Admin: 04/06/19 01:25 Dose: 10 ml Enoxaparin Sodium (Lovenox) 72.5 mg SUBCUT ONETIME ONE Stop: 04/05/19 18:11 Last Admin: 04/05/19 18:52 Dose: 72.5 mg Enoxaparin Sodium (Lovenox) 72 mg SUBCUT Q12H [facility] Last Admin: 04/06/19 06:35 Dose: 72 mg Haloperidol (Haldol) 1 mg PO ONETIME ONE Stop: 04/06/19 04:09 Last Admin: 04/06/19 11:22 Dose: Not Given Sodium Chloride (Normal Saline) 500 mls @ 999 mls/hr IV STAT [facility] Last Admin: 04/05/19 17:32 Dose: 999 mls/hr Piperacillin Sod/Tazobactam (Sod 3.375 gm/ Sodium Chloride) 50 mls @ 100 mls/ hr IV ONETIME ONE Stop: 04/05/19 18:07 Last Admin: 04/05/19 17:54 Dose: 100 mls/hr Sodium Chloride (Normal Saline) 500 mls @ 125 mls/hr IV STAT [facility] Last Infusion: 04/05/19 19:04 Dose: 999 mls/hr Sodium Chloride (Normal Saline) 1,000 mls @ 999 mls/hr IV STAT ONE Stop: 04/05/19 19:54 Last Admin: 04/05/19 19:11 Dose: 999 mls/hr Sodium Chloride (Normal Saline) 1,000 mls @ 100 mls/hr IV ASDIRECTED [facility] Last Admin: 04/05/19 21:37 Dose: 100 mls/hr Lactated Ringer's (Ringers, Lactated) 1,000 mls @ 999 mls/hr IV .BOLUS ONE Stop: 04/06/19 01:28 Last Admin: 04/06/19 01:46 Dose: 999 mls/hr Lactated Ringer's (Ringers, Lactated) 1,000 mls @ 999 mls/hr IV BOLUS ONE Stop: 04/06/19 07:33 Last Admin: 04/06/19 07:47 Dose: 999 mls/hr Methylprednisolone Sodium Succinate (Solu-Medrol) 125 mg IVPUSH ONETIME ONE Stop: 04/05/19 17:17 Last Admin: 04/05/19 17:32 Dose: 125 mg Methylprednisolone Sodium Succinate (Solu-Medrol) 40 mg IVPUSH Q8H [facility] Last Admin: 04/05/19 21:48 Dose: Not Given Metoprolol Tartrate (Lopressor) 5 mg IVPUSH Q5M [facility] Stop: 04/05/19 18:26 Last Admin: 04/06/19 10:06 Dose: Not Given Nicotine (Habitrol) 14 mg TRDERM ONETIME ONE Stop: 04/06/19 11:22 Last Admin: 04/06/19 11:30 Dose: 14 mg Ondansetron HCl (Zofran) 4 mg IVPUSH ONETIME ONE Stop: 04/05/19 18:33 Last Admin: 04/05/19 18:36 Dose: 4 mg Oxycodone/Acetaminophen (Percocet 325-10 Mg) Confirm Administered Dose 1 tab .ROUTE .STK-MED ONE Stop: 04/06/19 05:59 Last Admin: 04/06/19 06:27 Dose: Not Given - Exam General: Alert, Oriented Neck: Supple, Trachea Midline Lungs: Clear to Auscultation, Decreased Breath Sounds Cardiovascular: Regular Rate, Regular Rhythm GI/Abdominal Exam: Normal Bowel Sounds, Soft, Non-Tender Extremities: Arm Pain, Leg Pain. No: Increased Warmth, Pallor, Redness Peripheral Pulses: 3+: Dorsalis Pedis (L), Dorsalis Pedis (R) Skin: Warm Sepsis Event Note - Evaluation Sepsis Screening Result: No Definite Risk - Focused Exam Vital Signs: Vital Signs Temp Pulse Resp BP Pulse Ox 04/06/19 08:28 90/41 L 04/06/19 08:00 36.9 C 97 16 85/46 L 92 L 04/06/19 06:00 89 20 89/46 L 96 04/06/19 03:44 36.8 C 101 H 20 72/44 L 98 04/06/19 00:24 37.6 C 92 20 100/43 L 97 Date Exam was Performed: 04/06/19 Time Exam was Performed: 13:29 - Problem List & Annotations (1) Dehydration SNOMED Code(s): 78487541 Code(s): E86.0 - DEHYDRATION Status: Acute Current Visit: No (2) Hypoxia SNOMED Code(s): 046123748 Code(s): R09.02 - HYPOXEMIA Status: Acute Current Visit: No (3) Sinusitis SNOMED Code(s): 02451757 Code(s): J32.9 - CHRONIC SINUSITIS, UNSPECIFIED Status: Acute Current Visit: No Qualifiers: Sinusitis location: maxillary Chronicity: acute Recurrence: non- recurrent Qualified Code(s): J01.00 - Acute maxillary sinusitis, unspecified - Problem List Review Problem List Initiated/Reviewed/Updated: Yes - My Orders Last 24 Hours: My Active Orders 04/05/19 19:30 CULTURE URINE [RM] Routine 04/06/19 03:10 Acetaminophen/oxyCODONE [Percocet 325-10 MG] 1 tab PO Q4H PRN 04/06/19 04:15 Lactated Ringers [Ringers, Lactated] 1,000 ml IV BOLUS 04/06/19 06:15 Sodium Chloride 0.9% [Normal Saline] 1,000 ml IV ASDIRECTED 04/06/19 09:00 Aspirin [Halfprin] 81 mg PO DAILY Famotidine [Pepcid] 20 mg PO DAILY PRN Levothyroxine 75 mcg PO DAILY predniSONE 5 mg PO BID 04/06/19 Breakfast Soft Diet [DIET] - Plan Plan:: 1. 73 y/o F Admitted for Acute hypoxic respiratory failure, off oxygen now, doing better monitor on telemetry, troponins negative , CT chest didnt show any PNA, CTA couldn't be done due to CKD. cont duonebs and solumedrol. Son does not want BIPAP, pressors, or transfer/lab clerk if necessary. WBC count up, could be dec to steroid use UTI- continue Zosyn, UC and BC pending. BK- IVF Nicotine patch Code status- DNR/DNI Vitals per routine I/Os per routine Diet- DVT- FD Lovenox Patient and son want to leave AMA as she wants to smoke and be at home, risks explained, recommended to stay another midnight, family understands the risk, they plan to cont oral antibiotics prescribed by PCP and leave AMA.
== END 2019-04-06 13:30 | disposition left against medical advice (07) | DRG 189 ==
LOC: MW.ED 17:10 → MW.MS 18:25
PROVIDERS: ADMIT Student in an Organized Health Care Education/Training Program; ATTEND Student in an Organized Health Care Education/Training Program
DX: J96.01 Acute respiratory failure with hypoxia (principal); R09.02 Hypoxemia; N39.0 Urinary tract infection, site not specified; E16.2 Hypoglycemia, unspecified; F17.200 Nicotine dependence, unspecified, uncomplicated; H54.7 Unspecified visual loss; I10 Essential (primary) hypertension; N17.9 Acute kidney failure, unspecified; E86.0 Dehydration; K58.9 Irritable bowel syndrome, unspecified; J01.00 Acute maxillary sinusitis, unspecified; I99.8 Other disorder of circulatory system; Z66 Do not resuscitate; F17.210 Nicotine dependence, cigarettes, uncomplicated; I25.2 Old myocardial infarction; K21.9 Gastro-esophageal reflux disease without esophagitis; G89.29 Other chronic pain; D84.9 Immunodeficiency, unspecified; R10.9 Unspecified abdominal pain; Z79.82 Long term (current) use of aspirin; M79.7 Fibromyalgia; M06.9 Rheumatoid arthritis, unspecified; G62.9 Polyneuropathy, unspecified; E03.9 Hypothyroidism, unspecified; I12.9 Hypertensive chronic kidney disease with stage 1 through stage 4 chronic kidney disease, or unspecified chronic kidney disease; D89.9 Disorder involving the immune mechanism, unspecified; N18.9 Chronic kidney disease, unspecified; Z79.52 Long term (current) use of systemic steroids; Z90.89 Acquired absence of other organs; Z98.49 Cataract extraction status, unspecified eye; Z95.5 Presence of coronary angioplasty implant and graft; Z90.49 Acquired absence of other specified parts of digestive tract; Z98.51 Tubal ligation status; Z79.890 Hormone replacement therapy; Z79.899 Other long term (current) drug therapy
CPT/HCPCS: 36415; 80053; 82962; 83605; 84484; 85025; 85610; 87040 ×2; J2543; J2930; J7040 ×2; J7050; 71250; 71250-26; 80048; 81001; 83735; 84100; 84443; 87086; 87804; 93005; 94640; A9270-GY; J1650; J2405; J2920; J7030; J7120; J7512; J7620-GY

== ENCOUNTER 2020-03-24 13:38 | Emergency (ER) | payer MEDICARE, BC ==
--- NOTE | 2020-03-24 13:43 | EDM.PDOC ---
ED HPI GENERAL MEDICAL PROBLEM - General Stated Complaint: SHORTNESS OF BREATH Time Seen by Provider: 03/24/20 13:40 Source of Information: Reports: Patient History Limitations: Reports: No Limitations - History of Present Illness INITIAL COMMENTS - FREE TEXT/NARRATIVE: 74-year-old female past medical history hypothyroidism, chronic prednisone use (uncertain why), CAD (positive troponins in 2019 but declined cardiac cath) presents for generalized weakness and shortness of breath. Patient is poor historian. States that she felt okay yesterday but today is felt very weak with difficulty breathing and palpitations. She notes that her heart feels floppy at times. Also spoke with patient's son who notes that he has seen a gradual decline over the last 3 months. He had down titrated her oxycodone and it seemed as if her mental status was improving, but he is noted over the last week or so that she seems to be getting worse. Patient denies fevers, cough. - Related Data Allergies Allergy/AdvReac Type Severity Reaction Status Date / Time No Known Allergies Allergy Verified 03/24/20 13:47 Home Meds: Home Meds Levothyroxine 75 mcg PO DAILY 10/08/13 [History] oxyCODONE HCl/Acetaminophen [Endocet 10-325 MG] 10 - 325 mg PO Q4HR PRN 10/08/13 [History] predniSONE [Prednisone] 5 mg PO BID 07/23/15 [History] Aspirin [Adult Low Dose Aspirin EC] 81 mg PO DAILY 10/09/18 [History] Cimetidine 200 mg PO DAILY PRN 10/09/18 [History] Multivit with Minerals No.55 [Centrum Flavor Burst Adult] 1 tab PO DAILY 10/09/18 [History] Past Medical History - Past Health History Medical/Surgical History: Denies Medical/Surgical History HEENT History: Reports: Cataract, Other (See Below) Other HEENT History: wears glasses, has upper denture Cardiovascular History: Reports: Hypertension, [place], Stents Other Cardiovascular History: states she has high blood pressure but does not take any medications- "they make me sick" Respiratory History: Reports: Other (See Below) Other Respiratory History: uses a nebulizer when she gets a cold Gastrointestinal History: Reports: GERD, Irritable Bowel Syndrome Other Gastrointestinal History: chronic abdominal pain, of unknown cause per son Genitourinary History: Reports: None 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: Musculoskeletal History: Reports: Fibromyalgia, RA Other Musculoskeletal History: hx of spinal stenosis Neurological History: Reports: Neuropathy, Peripheral Psychiatric History: Reports: None Endocrine/Metabolic History: Reports: Hypothyroidism Other Endocrine/Metabolic History: pt is on on synthroid Hematologic History: Reports: None Immunologic History: Reports: Immunosuppression Oncologic (Cancer) History: Reports: None Dermatologic History: Reports: None - Infectious Disease History Infectious Disease History: Reports: Chicken Pox, Measles, Mumps, Shingles - Past Surgical History Head Surgeries/Procedures: Reports: None HEENT Surgical History: Reports: Cataract Surgery, Tonsillectomy Cardiovascular Surgical History: Reports: Coronary Artery Stent Respiratory Surgical History: Reports: None GI Surgical History: Reports: Cholecystectomy Female Surgical History: Reports: Tubal Ligation Endocrine Surgical History: Reports: None Neurological Surgical History: Reports: None Musculoskeletal Surgical History: Reports: None Dermatological Surgical History: Reports: None Social & Family History - Family History Family Medical History: Unobtainable Neurological: Reports: CVA Other Neurological Family History: brother - Caffeine Use Caffeine Use: Reports: Coffee, Tea Caffeine Use Comment: 1cups/day - Living Situation & Occupation Living situation: Reports: Occupation: Retired ED ROS GENERAL - Review of Systems Review Of Systems: Comprehensive ROS is negative, except as noted in HPI. ED EXAM, GENERAL - Physical Exam Exam: See Below Exam Limited By: No Limitations General Appearance: Alert, WD/WN, No Apparent Distress Ears: Normal External Exam Throat/Mouth: Normal Voice, No Airway Compromise Head: Atraumatic, Normocephalic Neck: Normal Inspection Respiratory/Chest: No Respiratory Distress, No Accessory Muscle Use, Wheezing Cardiovascular: Normal Peripheral Pulses, Regular Rate, Rhythm, No Edema GI/Abdominal: Soft, Other (diffuse TTP without guarding) Extremities: Normal Inspection Neurological: Alert, Oriented Psychiatric: Normal Affect, Normal Mood, Anxious Skin Exam: Warm, Dry, Intact, Normal Color #1 Interpretation EKG Date: 03/24/20 Time: 13:47 Rhythm: NSR Rate (Beats/Min): 80 [place]: Normal P-Wave: Present QRS: Normal ST-T: Normal QT: Prolonged (513) [place]/PQ Interval: 120 EKG Interpretation Comments: non-ischemic Course - Vital Signs Last Recorded V/S: Last Vital Signs Temp 99 F 03/24/20 13:47 Pulse 85 03/24/20 15:36 Resp 16 03/24/20 15:36 BP 142/56 H 03/24/20 15:36 Pulse Ox 97 03/24/20 15:36 - Orders/Labs/Meds Orders: Active Orders 24 hr Category Date Time Status Blood Glucose Check, Bedside [RC] ONETIME Care 03/24/20 13:51 Active Cardiac Monitoring [RC] . DIRECTED Care 03/24/20 13:51 Active EKG Documentation Completion [RC] STAT Care 03/24/20 13:51 Active Pulse Oximetry [RC] ASDIRECTED Care 03/24/20 13:51 Active Sodium Chloride 0.9% [Saline Flush] Med 03/24/20 13:51 Active 10 ml FLUSH ASDIRECTED PRN Sodium Chloride 0.9% [Saline Flush] Med 03/24/20 13:51 Active 2.5 ml FLUSH ASDIRECTED PRN Saline Lock Insert [OM.PC] Stat Oth 03/24/20 13:51 Ordered Medication Orders Sodium Chloride (Saline Flush) 10 ml FLUSH ASDIRECTED PRN PRN Reason: Keep Vein Open Last Admin: 03/24/20 13:57 Dose: 10 ml Documented by: BARB Sodium Chloride (Saline Flush) 2.5 ml FLUSH ASDIRECTED PRN PRN Reason: Keep Vein Open Last Admin: 03/24/20 13:57 Dose: 2.5 ml Documented by: BARB Labs: Laboratory Tests 03/24/20 03/24/20 03/24/20 Range/Units 13:41 13:41 13:41 WBC 9.13 (4.0-11.0) K/uL RBC 4.43 (4.30-5.90) M/uL Hgb 14.3 (12.0-16.0) g/dL Hct 44.8 (36.0-46.0) % MCV 101.1 H (80.0-98.0) fL MCH 32.3 H (27.0-32.0) pg MCHC 31.9 (31.0-37.0) g/dL RDW Std Deviation 50.8 (28.0-62.0) fl RDW Coeff of Maxim 14 (11.0-15.0) % Plt Count 174 (150-400) K/uL MPV 10.60 (7.40-12.00) fL Neut % (Auto) 59.7 (48.0-80.0) % Lymph % (Auto) 29.0 (16.0-40.0) % Adams % (Auto) 8.9 (0.0-15.0) % Eos % (Auto) 2.2 (0.0-7.0) % Baso % (Auto) 0.2 (0.0-1.5) % Neut # (Auto) 5.5 (1.4-5.7) K/uL Lymph # (Auto) 2.7 H (0.6-2.4) K/uL Adams # (Auto) 0.8 (0.0-0.8) K/uL Eos # (Auto) 0.2 (0.0-0.7) K/uL Baso # (Auto) 0.0 (0.0-0.1) K/uL Nucleated RBC % 0.0 /100WBC Nucleated RBCs # 0 K/uL Lactate 0.9 (0.20-2.00) mmol/L Sodium 140 (136-145) mmol/L Potassium 3.6 (3.5-5.1) mmol/L Chloride 102 (98-107) mmol/L Carbon Dioxide 29.0 (21.0-32.0) mmol/L BUN 16 (7.0-18.0) mg/dL Creatinine 1.0 (0.6-1.0) mg/dL Est Cr Clr Drug Dosing 41.42 mL/min Estimated GFR (MDRD) 54.1 ml/min Glucose 87 (74-106) mg/dL POC Glucose (60-110) mg/dL Calcium 9.7 (8.5-10.1) mg/dL Magnesium 2.1 (1.8-2.4) mg/dL Total Bilirubin 0.4 (0.2-1.0) mg/dL AST 16 (15-37) IU/L ALT 21 (14-63) IU/L Alkaline Phosphatase 50 (46-116) U/L Troponin I < 0.050 (0.000-0.056) ng/mL B-Natriuretic Peptide (<100) PG/ML Total Protein 7.2 (6.4-8.2) g/dL Albumin 3.7 (3.4-5.0) g/dL Globulin 3.5 (2.6-4.0) g/dL Albumin/Globulin Ratio 1.1 (0.9-1.6) TSH 3rd Generation 1.65 (0.36-3.74) uIU/mL Urine Color Urine Appearance Urine pH (5.0-8.0) Ur Specific [place] (1.001-1.035) Urine Protein (NEGATIVE) mg/dL Urine Glucose (UA) (NEGATIVE) mg/dL Urine Ketones (NEGATIVE) mg/dL Urine Occult Blood (NEGATIVE) Urine Nitrite (NEGATIVE) Urine Bilirubin (NEGATIVE) Urine Urobilinogen (<2.0) EU/dL Ur Leukocyte Esterase (NEGATIVE) Urine RBC (0-2/HPF) Urine WBC (0-5/HPF) Ur Epithelial Cells (NONE-FEW) Urine Bacteria (NEGATIVE) SARS-CoV-2 RNA (ARNEL) (NEGATIVE) 03/24/20 03/24/20 03/24/20 Range/Units 13:41 14:04 14:12 WBC (4.0-11.0) K/uL RBC (4.30-5.90) M/uL Hgb (12.0-16.0) g/dL Hct (36.0-46.0) % MCV (80.0-98.0) fL MCH (27.0-32.0) pg MCHC (31.0-37.0) g/dL RDW Std Deviation (28.0-62.0) fl RDW Coeff of Maxim (11.0-15.0) % Plt Count (150-400) K/uL MPV (7.40-12.00) fL Neut % (Auto) (48.0-80.0) % Lymph % (Auto) (16.0-40.0) % Adams % (Auto) (0.0-15.0) % Eos % (Auto) (0.0-7.0) % Baso % (Auto) (0.0-1.5) % Neut # (Auto) (1.4-5.7) K/uL Lymph # (Auto) (0.6-2.4) K/uL Adams # (Auto) (0.0-0.8) K/uL Eos # (Auto) (0.0-0.7) K/uL Baso # (Auto) (0.0-0.1) K/uL Nucleated RBC % /100WBC Nucleated RBCs # K/uL Lactate (0.20-2.00) mmol/L Sodium (136-145) mmol/L Potassium (3.5-5.1) mmol/L Chloride (98-107) mmol/L Carbon Dioxide (21.0-32.0) mmol/L BUN (7.0-18.0) mg/dL Creatinine (0.6-1.0) mg/dL Est Cr Clr Drug Dosing mL/min Estimated GFR (MDRD) ml/min Glucose (74-106) mg/dL POC Glucose 79 (60-110) mg/dL Calcium (8.5-10.1) mg/dL Magnesium (1.8-2.4) mg/dL Total Bilirubin (0.2-1.0) mg/dL AST (15-37) IU/L ALT (14-63) IU/L Alkaline Phosphatase (46-116) U/L Troponin I (0.000-0.056) ng/mL B-Natriuretic Peptide 39 (<100) PG/ML Total Protein (6.4-8.2) g/dL Albumin (3.4-5.0) g/dL Globulin (2.6-4.0) g/dL Albumin/Globulin Ratio (0.9-1.6) TSH 3rd Generation (0.36-3.74) uIU/mL Urine Color Urine Appearance Urine pH (5.0-8.0) Ur Specific [place] (1.001-1.035) Urine Protein (NEGATIVE) mg/dL Urine Glucose (UA) (NEGATIVE) mg/dL Urine Ketones (NEGATIVE) mg/dL Urine Occult Blood (NEGATIVE) Urine Nitrite (NEGATIVE) Urine Bilirubin (NEGATIVE) Urine Urobilinogen (<2.0) EU/dL Ur Leukocyte Esterase (NEGATIVE) Urine RBC (0-2/HPF) Urine WBC (0-5/HPF) Ur Epithelial Cells (NONE-FEW) Urine Bacteria (NEGATIVE) SARS-CoV-2 RNA (ARNEL) NEGATIVE (NEGATIVE) 03/24/20 Range/Units 15:30 WBC (4.0-11.0) K/uL RBC (4.30-5.90) M/uL Hgb (12.0-16.0) g/dL Hct (36.0-46.0) % MCV (80.0-98.0) fL MCH (27.0-32.0) pg MCHC (31.0-37.0) g/dL RDW Std Deviation (28.0-62.0) fl RDW Coeff of Maxim (11.0-15.0) % Plt Count (150-400) K/uL MPV (7.40-12.00) fL Neut % (Auto) (48.0-80.0) % Lymph % (Auto) (16.0-40.0) % [place] % (Auto) (0.0-15.0) % Eos % (Auto) (0.0-7.0) % Baso % (Auto) (0.0-1.5) % Neut # (Auto) (1.4-5.7) K/uL Lymph # (Auto) (0.6-2.4) K/uL [place] # (Auto) (0.0-0.8) K/uL Eos # (Auto) (0.0-0.7) K/uL Baso # (Auto) (0.0-0.1) K/uL Nucleated RBC % /100WBC Nucleated RBCs # K/uL Lactate (0.20-2.00) mmol/L Sodium (136-145) mmol/L Potassium (3.5-5.1) mmol/L Chloride (98-107) mmol/L Carbon Dioxide (21.0-32.0) mmol/L BUN (7.0-18.0) mg/dL Creatinine (0.6-1.0) mg/dL Est Cr Clr Drug Dosing mL/min Estimated GFR (MDRD) ml/min Glucose (74-106) mg/dL POC Glucose (60-110) mg/dL Calcium (8.5-10.1) mg/dL Magnesium (1.8-2.4) mg/dL Total Bilirubin (0.2-1.0) mg/dL AST (15-37) IU/L ALT (14-63) IU/L Alkaline Phosphatase (46-116) U/L Troponin I (0.000-0.056) ng/mL B-Natriuretic Peptide (<100) PG/ML Total Protein (6.4-8.2) g/dL Albumin (3.4-5.0) g/dL Globulin (2.6-4.0) g/dL Albumin/Globulin Ratio (0.9-1.6) TSH 3rd Generation (0.36-3.74) uIU/mL Urine Color YELLOW Urine Appearance CLEAR Urine pH 6.0 (5.0-8.0) Ur Specific [place] 1.015 (1.001-1.035) Urine Protein NEGATIVE (NEGATIVE) mg/dL Urine Glucose (UA) NEGATIVE (NEGATIVE) mg/dL Urine Ketones NEGATIVE (NEGATIVE) mg/dL Urine Occult Blood NEGATIVE (NEGATIVE) Urine Nitrite NEGATIVE (NEGATIVE) Urine Bilirubin NEGATIVE (NEGATIVE) Urine Urobilinogen 0.2 (<2.0) EU/dL Ur Leukocyte Esterase TRACE H (NEGATIVE) Urine RBC 0-1 (0-2/HPF) Urine WBC 2-3 (0-5/HPF) Ur Epithelial Cells MODERATE (NONE-FEW) Urine Bacteria RARE (NEGATIVE) SARS-CoV-2 RNA (ARNEL) (NEGATIVE) Meds: Medications Generic Name Dose Route Start Last Admin Trade Name Freroberto PRN Reason Stop Dose Admin Sodium Chloride 10 ml 03/24/20 13:51 03/24/20 13:57 Saline Flush FLUSH 10 ml ASDIRECTED PRN Administration Keep Vein Open Sodium Chloride 2.5 ml 03/24/20 13:51 03/24/20 13:57 Saline Flush FLUSH 2.5 ml ASDIRECTED PRN Administration Keep Vein Open Discontinued Medications Generic Name Dose Route Start Last Admin Trade Name Johnathan PRN Reason Stop Dose Admin Albuterol/Ipratropium 3 ml 03/24/20 13:51 03/24/20 13:56 Duoneb 3.0-0.5 Mg/3 Ml NEB 03/24/20 13:52 3 ml ONETIME ONE Administration Albuterol/Ipratropium Confirm 03/24/20 13:53 03/24/20 13:57 Duoneb 3.0-0.5 Mg/3 Ml Administered 03/24/20 13:54 Not Given Dose 3 ml .ROUTE .STK-MED ONE Methylprednisolone Sodium Succinate 125 mg 03/24/20 13:51 03/24/20 13:57 Solu-Medrol IVPUSH 03/24/20 13:52 125 mg ONETIME ONE Administration - Re-Assessments/Exams Free Text/Narrative Re-Assessment/Exam: 03/24/20 14:07 Patient symptoms are very nonspecific. Will get extensive labs and imaging and disposition accordingly Departure - Departure Time of Disposition: 15:50 Disposition: Home, Self-Care 01 Condition: Good Clinical Impression: Weakness - Discharge Information Referrals: Robert Haynes MD [Primary Care Provider] - Additional Instructions: Your work-up in the emergency department was unremarkable. Unfortunately in the ER work-up alone is not always enough to rule out serious pathology so it is very important that you follow-up with your primary care physician. If you are having palpitations you might need a Holter monitor which is a continuous EKG that is worn for 1 to 3 days to look for signs of abnormal heartbeat. If you experience chest pain, difficulty breathing, or any new or concerning symptoms you are encouraged to return to the emergency department for reassessment. The following information is given to patients seen in the emergency department who are being discharged to home. This information is to outline your options for follow-up care. We provide all patients seen in our emergency department with a follow-up referral. The need for follow-up, as well as the timing and circumstances, are variable depending upon the specifics of your emergency department visit. If you don't have a primary care physician on staff, we will provide you with a referral. We always advise you to contact your personal physician following an emergency department visit to inform them of the circumstance of the visit and for follow-up with them and/or the need for any referrals to a consulting specialist. The emergency department will also refer you to a specialist when appropriate. This referral assures that you have the opportunity for follow-up care with a specialist. All of these measure are taken in an effort to provide you with optimal care, which includes your follow-up. Under all circumstances we always encourage you to contact your private physician who remains a resource for coordinating your care. When calling for follow-up care, please make the office aware that this follow-up is from your recent emergency room visit. If for any reason you are refused follow-up, please contact the [facility] Emergency Department at and asked to speak to the emergency department charge nurse. Please follow up with your primary care physician. If you do not have a primary care physician, see below: [facility] [address] [place], [place] [address] My [facility] [address] [place] [address] [facility] [address] [place] [address] Sepsis Event Note (ED) - Focused Exam Vital Signs: Vital Signs Temp Pulse Resp BP Pulse Ox 03/24/20 15:36 85 16 142/56 H 97 03/24/20 14:17 80 18 172/70 H 97 03/24/20 13:47 99 F 82 18 156/104 H 98 - My Orders Last 24 Hours: My Active Orders 03/24/20 13:51 Blood Glucose Check, Bedside [RC] ONETIME Cardiac Monitoring [RC] . DIRECTED EKG Documentation Completion [RC] STAT Pulse Oximetry [RC] ASDIRECTED Sodium Chloride 0.9% [Saline Flush] 10 ml FLUSH ASDIRECTED PRN Sodium Chloride 0.9% [Saline Flush] 2.5 ml FLUSH ASDIRECTED PRN Saline Lock Insert [OM.PC] Stat - Assessment/Plan Last 24 Hours: My Active Orders 03/24/20 13:51 Blood Glucose Check, Bedside [RC] ONETIME Cardiac Monitoring [RC] . DIRECTED EKG Documentation Completion [RC] STAT Pulse Oximetry [RC] ASDIRECTED Sodium Chloride 0.9% [Saline Flush] 10 ml FLUSH ASDIRECTED PRN Sodium Chloride 0.9% [Saline Flush] 2.5 ml FLUSH ASDIRECTED PRN Saline Lock Insert [OM.PC] Stat
[2020-03-24] MEDS ORDERED: Sodium Chloride 0.9% 10 ML Syringe FLUSH PRN (13:51)
[2020-03-24] MEDS ORDERED: Sodium Chloride 0.9% 2.5 ML Syringe FLUSH PRN (13:51)
[2020-03-24] MEDS ORDERED: Albuterol/Ipratropium 3.0-0.5 MG/3 ML Neb Soln NEB ONE (13:51)
[2020-03-24] MEDS ORDERED: methylPREDNISolone Sodium Succinate 125 MG/2 ML SDV IVPUSH ONE (13:51)
[2020-03-24] MEDS ORDERED: Albuterol/Ipratropium 3.0-0.5 MG/3 ML Neb Soln ONE (13:53)
--- NOTE | 2020-03-24 14:34 | CR ---
INDICATION: Shortness of breath. TECHNIQUE: Chest 1 view. COMPARISON: Chest radiograph 04/05/2019. FINDINGS: The cardiomediastinal silhouette size is normal. There are atherosclerotic calcifications of the aortic arch. Lung volumes are large and there is flattening of the diaphragms suggestive of COPD. There is no focal pulmonary opacity, pleural effusion or pneumothorax. The visualized osseous structures are unremarkable for age. Impression: Larger lung volumes suggestive of COPD. No acute cardiopulmonary abnormality. Dictated by Lolis Barreto MD @ Mar 24 2020 2:30PM Signed by Dr. Lolis Barreto @ Mar 24 2020 2:34PM
[2020-03-24 14:49] LABS: BLOOD UREA NITROGEN,BUN 16 mg/dL (7.0-18.0); CHLORIDE,CL 102 mmol/L (98-107); GLUCOSE RANDOM 87 mg/dL (74-106); POTASSIUM,K 3.6 mmol/L (3.5-5.1); SODIUM,NA 140 mmol/L (136-145)
[2020-03-24 16:15] VITALS: BP 165/67; PULSE 79
== END 2020-03-24 16:00 | disposition home or self-care (01) ==
LOC: MW.ED 13:38
DX: R53.1 Weakness (principal); I25.2 Old myocardial infarction; E03.9 Hypothyroidism, unspecified; G62.9 Polyneuropathy, unspecified; I10 Essential (primary) hypertension; Z20.822 Contact with and (suspected) exposure to COVID-19; Z79.82 Long term (current) use of aspirin; Z79.899 Other long term (current) drug therapy; Z95.5 Presence of coronary angioplasty implant and graft
CPT/HCPCS: 36415; 71045; 80053; 81001; 82962; 83605; 83735; 83880; 84443; 84484; 85025; 96374; 99285; J2930; U0002; 93010; 99284; J7620-GY

== ENCOUNTER 2020-07-03 22:03 | Emergency (ER) | payer MEDICARE, BC ==
[2020-07-03] MEDS ORDERED: Sodium Chloride 0.9% 10 ML Syringe FLUSH PRN (22:09)
[2020-07-03] MEDS ORDERED: Sodium Chloride 0.9% 2.5 ML Syringe FLUSH PRN (22:09)
[2020-07-03] MEDS ORDERED: Sodium Chloride 0.9% 1,000 ML IV ONE (22:11)
[2020-07-03] MEDS ORDERED: fentaNYL 50 MCG/ML SDV IVPUSH ONE (22:11)
[2020-07-03] MEDS ORDERED: Ondansetron 4 MG/2 ML SDV IVPUSH ONE (22:12)
--- NOTE | 2020-07-03 22:20 | EDM.PDOC ---
ED HPI GENERAL MEDICAL PROBLEM - General Chief Complaint: Abdominal Pain Stated Complaint: PSYCH EVAL Time Seen by Provider: 07/03/20 22:06 - History of Present Illness INITIAL COMMENTS - FREE TEXT/NARRATIVE: History of present illness: [] Patient sent from a [facility] long term facility. She has severe abdominal pain at least today. She says the pain so bad she wants to . She does not have any psychotic or neurotic features. She does not have any suicidal intent other than the fact that she wants to get out of the pain. She agrees that if we can take care of the pain she would not want to and she is not a suicidal patient other than the fact that she just cannot stand the pain. She moves her hands along the lower costal margins on both sides when she describes the location of the pain. Review of systems: As per history of present illness and below otherwise all systems reviewed and negative. Past medical history: As per history of present illness and as reviewed below otherwise noncontrib utory. Surgical history: As per history of present illness and as reviewed below otherwise noncontributory. Social history: No reported history of drug or alcohol abuse. Family history: As per history of present illness and as reviewed below otherwise noncontributory. Physical exam: Constitutional - well developed, well-nourished and in no acute distress HEENT - normocephalic, no evidence of trauma - external nose and mouth normal - no mass in neck and no JVD - mucosae moist EYES - full EOM, PERRL, no icterus - no evidence of inflammation, injection, or drainage Respiratory - no respiratory distress, equal bilateral expansion, lungs clear to auscultation and no abnormal lung sounds Cardiovascular - Regular Rhythm with S1 and S2 appreciated and no murmur, gallop or rub. GI - abdomen large diffusely but without distension or organomegaly - normal bowel sounds - no rebound Musculoskeletal no gross deformity of long bones or joints - no tenderness, swelling or edema Neurologic - Alert and oriented times four - CN II-XII grossly intact - motor sensory and coordination symmetrically normal Psychiatric - appropriate mood and affect with normal thought content Hematologic - No petechiae or purpura - mucosa appropriate color and sclera not pale - normal nail bed color and refill Integument - no rash or evidence of trauma - normal turgor Diagnostics: [] Therapeutics: [] Impression: [] Plan: [] Definitive disposition and diagnosis as appropriate pending reevaluation and review of above. Middle Abdomen Pain Score (Numeric/FACES): 8 - Related Data Allergies Allergy/AdvReac Type Severity Reaction Status Date / Time No Known Allergies Allergy Verified 07/03/20 22:09 Home Meds: Home Meds Levothyroxine 75 mcg PO DAILY 10/08/13 [History] oxyCODONE HCl/Acetaminophen [Endocet 10-325 MG] 10 - 325 mg PO Q4HR PRN 10/08/13 [History] predniSONE [Prednisone] 7.5 mg PO BID 07/23/15 [History] Cimetidine 200 mg PO DAILY PRN 10/09/18 [History] Multivit with Minerals No.55 [Centrum Flavor Burst Adult] 1 tab PO DAILY 10/09/18 [History] Docusate Sodium [Colace] 100 mg PO BID PRN 07/03/20 [History] fentaNYL [Duragesic] 25 mcg TD ASDIRECTED 07/03/20 [History] Past Medical History - Past Health History Medical/Surgical History: Denies Medical/Surgical History HEENT History: Reports: Cataract, Other (See Below) Other HEENT History: wears glasses, has upper denture Cardiovascular History: Reports: Hypertension, [place], Stents Other Cardiovascular History: states she has high blood pressure but does not take any medications- "they make me sick" Respiratory History: Reports: Other (See Below) Other Respiratory History: uses a nebulizer when she gets a cold Gastrointestinal History: Reports: GERD, Irritable Bowel Syndrome Other Gastrointestinal History: chronic abdominal pain, of unknown cause per son Genitourinary History: Reports: None CHILD SUPPORT AGENT History: Reports: Musculoskeletal History: Reports: Fibromyalgia, RA Other Musculoskeletal History: hx of spinal stenosis Neurological History: Reports: Neuropathy, Peripheral Psychiatric History: Reports: None Endocrine/Metabolic History: Reports: Hypothyroidism Other Endocrine/Metabolic History: pt is on on synthroid Hematologic History: Reports: None Immunologic History: Reports: Immunosuppression Oncologic (Cancer) History: Reports: None Dermatologic History: Reports: None - Infectious Disease History Infectious Disease History: Reports: Chicken Pox, Measles, Mumps, Shingles - Past Surgical History Head Surgeries/Procedures: Reports: None HEENT Surgical History: Reports: Cataract Surgery, Tonsillectomy Cardiovascular Surgical History: Reports: Coronary Artery Stent Other Cardiovascular Surgeries/Procedures: angioplasty with placement of 2 stents, 17 years ago, denies current chest pain or SOB Respiratory Surgical History: Reports: None GI Surgical History: Reports: Cholecystectomy Female Surgical History: Reports: Tubal Ligation Endocrine Surgical History: Reports: None Neurological Surgical History: Reports: None Musculoskeletal Surgical History: Reports: None Dermatological Surgical History: Reports: None Social & Family History - Family History Family Medical History: Unobtainable Neurological: Reports: CVA Other Neurological Family History: brother - Caffeine Use Caffeine Use: Reports: None Caffeine Use Comment: 1cups/day - Living Situation & Occupation Living situation: Reports: Occupation: Retired ED ROS GENERAL - Review of Systems Review Of Systems: Comprehensive ROS is negative, except as noted in HPI. ED EXAM, GENERAL - Physical Exam Exam: See Below Free Text/Narrative:: My physical exam is in the HPI #1 Interpretation EKG Interpretation Comments: EKG sinus rhythm heart rate 81 AR 117 QT duration [address] changes and LVH with increased folds. Compared to 03/22/2020 ST segment changes are new and the QRS axis is somewhat change. Impression no obvious acute [place] but ischemia cannot be ruled out. Course - Vital Signs Text/Narrative:: 0 44 hours patient's pain is adequately relieved and she says that she certainly has no intent to kill her self and wants to go back to her home and the long term facility. Last Recorded V/S: Last Vital Signs Temp 36.3 C 07/03/20 22:09 Pulse 96 07/03/20 22:09 Resp 16 07/03/20 22:09 BP 149/88 H 07/03/20 22:09 Pulse Ox 97 07/03/20 22:09 - Orders/Labs/Meds Orders: Active Orders 24 hr Category Date Time Status EKG Documentation Completion [RC] AM Care 07/03/20 22:09 Active Sodium Chloride 0.9% [Saline Flush] Med 07/03/20 22:09 Active 10 ml FLUSH ASDIRECTED PRN Sodium Chloride 0.9% [Saline Flush] Med 07/03/20 22:09 Active 2.5 ml FLUSH ASDIRECTED PRN Saline Lock Insert [OM.PC] Stat Oth 07/03/20 22:09 Ordered Medication Orders Sodium Chloride (Sodium Chloride 0.9% 10 Ml Syringe) 10 ml FLUSH ASDIRECTED PRN PRN Reason: Keep Vein Open Sodium Chloride (Sodium Chloride 0.9% 2.5 Ml Syringe) 2.5 ml FLUSH ASDIRECTED PRN PRN Reason: Keep Vein Open Labs: Laboratory Tests 07/03/20 07/03/20 07/03/20 Range/Units 22:10 22:10 22:10 WBC 9.70 (4.0-11.0) K/uL RBC 4.31 (4.30-5.90) M/uL Hgb 14.3 (12.0-16.0) g/dL Hct 43.5 (36.0-46.0) % MCV 100.9 H (80.0-98.0) fL MCH 33.2 H (27.0-32.0) pg MCHC 32.9 (31.0-37.0) g/dL RDW Std Deviation 49.0 (28.0-62.0) fl RDW Coeff of Maxim 13 (11.0-15.0) % Plt Count 250 (150-400) K/uL MPV 10.50 (7.40-12.00) fL Neut % (Auto) 59.9 (48.0-80.0) % Lymph % (Auto) 26.1 (16.0-40.0) % [place] % (Auto) 8.0 (0.0-15.0) % Eos % (Auto) 5.7 (0.0-7.0) % Baso % (Auto) 0.3 (0.0-1.5) % Neut # (Auto) 5.8 H (1.4-5.7) K/uL Lymph # (Auto) 2.5 H (0.6-2.4) K/uL [place] # (Auto) 0.8 (0.0-0.8) K/uL Eos # (Auto) 0.6 (0.0-0.7) K/uL Baso # (Auto) 0.0 (0.0-0.1) K/uL Nucleated RBC % 0.0 /100WBC Nucleated RBCs # 0 K/uL Sodium 142 (136-145) mmol/L Potassium 3.5 (3.5-5.1) mmol/L Chloride 102 (98-107) mmol/L Carbon Dioxide 27.5 (21.0-32.0) mmol/L BUN 26 H (7.0-18.0) mg/dL Creatinine 1.0 (0.6-1.0) mg/dL Est Cr Clr Drug Dosing 35.98 mL/min Estimated GFR (MDRD) 53.9 ml/min Glucose 106 (74-106) mg/dL Calcium 9.1 (8.5-10.1) mg/dL Total Bilirubin 0.5 (0.2-1.0) mg/dL AST 21 (15-37) IU/L ALT 19 (14-63) IU/L Alkaline Phosphatase 71 (46-116) U/L Troponin I < 0.050 (0.000-0.056) ng/mL Total Protein 7.7 (6.4-8.2) g/dL Albumin 3.1 L (3.4-5.0) g/dL Globulin 4.6 H (2.6-4.0) g/dL Albumin/Globulin Ratio 0.7 L (0.9-1.6) Lipase 64 L (73-393) U/L Urine Color Urine Appearance Urine pH (5.0-8.0) Ur Specific [place] (1.001-1.035) Urine Protein (NEGATIVE) mg/dL Urine Glucose (UA) (NEGATIVE) mg/dL Urine Ketones (NEGATIVE) mg/dL Urine Occult Blood (NEGATIVE) Urine Nitrite (NEGATIVE) Urine Bilirubin (NEGATIVE) Urine Ictotest Urine Urobilinogen (<2.0) EU/dL Ur Leukocyte Esterase (NEGATIVE) 07/03/20 Range/Units 22:50 WBC (4.0-11.0) K/uL RBC (4.30-5.90) M/uL Hgb (12.0-16.0) g/dL Hct (36.0-46.0) % MCV (80.0-98.0) fL MCH (27.0-32.0) pg MCHC (31.0-37.0) g/dL RDW Std Deviation (28.0-62.0) fl RDW Coeff of Maxim (11.0-15.0) % Plt Count (150-400) K/uL MPV (7.40-12.00) fL Neut % (Auto) (48.0-80.0) % Lymph % (Auto) (16.0-40.0) % [place] % (Auto) (0.0-15.0) % Eos % (Auto) (0.0-7.0) % Baso % (Auto) (0.0-1.5) % Neut # (Auto) (1.4-5.7) K/uL Lymph # (Auto) (0.6-2.4) K/uL [place] # (Auto) (0.0-0.8) K/uL Eos # (Auto) (0.0-0.7) K/uL Baso # (Auto) (0.0-0.1) K/uL Nucleated RBC % /100WBC Nucleated RBCs # K/uL Sodium (136-145) mmol/L Potassium (3.5-5.1) mmol/L Chloride (98-107) mmol/L Carbon Dioxide (21.0-32.0) mmol/L BUN (7.0-18.0) mg/dL Creatinine (0.6-1.0) mg/dL Est Cr Clr Drug Dosing mL/min Estimated GFR (MDRD) ml/min Glucose (74-106) mg/dL Calcium (8.5-10.1) mg/dL Total Bilirubin (0.2-1.0) mg/dL AST (15-37) IU/L ALT (14-63) IU/L Alkaline Phosphatase (46-116) U/L Troponin I (0.000-0.056) ng/mL Total Protein (6.4-8.2) g/dL Albumin (3.4-5.0) g/dL Globulin (2.6-4.0) g/dL Albumin/Globulin Ratio (0.9-1.6) Lipase (73-393) U/L Urine Color YELLOW Urine Appearance CLEAR Urine pH 6.0 (5.0-8.0) Ur Specific [place] 1.025 (1.001-1.035) Urine Protein NEGATIVE (NEGATIVE) mg/dL Urine Glucose (UA) NEGATIVE (NEGATIVE) mg/dL Urine Ketones TRACE H (NEGATIVE) mg/dL Urine Occult Blood NEGATIVE (NEGATIVE) Urine Nitrite NEGATIVE (NEGATIVE) Urine Bilirubin SMALL H (NEGATIVE) Urine Ictotest NEGATIVE Urine Urobilinogen 0.2 (<2.0) EU/dL Ur Leukocyte Esterase NEGATIVE (NEGATIVE) Meds: Medications Generic Name Dose Route Start Last Admin Trade Name Johnathan PRN Reason Stop Dose Admin Sodium Chloride 10 ml 07/03/20 22:09 Sodium Chloride 0.9% 10 Ml Syringe FLUSH ASDIRECTED PRN Keep Vein Open Sodium Chloride 2.5 ml 07/03/20 22:09 Sodium Chloride 0.9% 2.5 Ml Syringe FLUSH ASDIRECTED PRN Keep Vein Open Discontinued Medications Generic Name Dose Route Start Last Admin Trade Name Johnathan PRN Reason Stop Dose Admin Fentanyl 50 mcg 07/03/20 22:11 07/03/20 22:20 Fentanyl 50 Mcg/Ml Sdv IVPUSH 07/03/20 22:12 50 mcg ONETIME ONE Administration Sodium Chloride 1,000 mls @ 999 mls/hr 07/03/20 22:11 07/03/20 22:18 Normal Saline IV 07/03/20 23:11 999 mls/hr .Bolus ONE Administration Iopamidol 70 ml 07/03/20 23:17 07/03/20 23:18 Iopamidol 755 Mg/Ml 500 Ml Multipack Bottle IVPUSH 07/03/20 23:18 70 ml ONETIME STA Administration Ondansetron HCl 4 mg 07/03/20 22:12 07/03/20 22:20 Ondansetron 4 Mg/2 Ml Sdv IVPUSH 07/03/20 22:13 4 mg ONETIME ONE Administration Departure - Departure Time of Disposition: 00:44 Disposition: DC/Tfer to SNF 03 Condition: Good Clinical Impression: Abdominal pain Qualifiers: Abdominal location: epigastric Qualified Code(s): R10.13 - Epigastric pain - Discharge Information Instructions: Abdominal Pain, Adult, [id number] Referrals: Lucas Alejandre MD [Primary Care Provider] - Forms: ED Department Discharge Additional Instructions: Patient suicidal assessment scale was low. Patient says that when her pain was adequately controlled she does not have any intent to hurt her self. Patient was returned to her long term facility. Sepsis Event Note (ED) - Evaluation Sepsis Screening Result: No Definite Risk - Focused Exam Vital Signs: Vital Signs Temp Pulse Resp BP Pulse Ox 07/03/20 22:09 36.3 C 96 16 149/88 H 97 - My Orders Last 24 Hours: My Active Orders 07/03/20 22:09 EKG Documentation Completion [RC] AM Sodium Chloride 0.9% [Saline Flush] 10 ml FLUSH ASDIRECTED PRN Sodium Chloride 0.9% [Saline Flush] 2.5 ml FLUSH ASDIRECTED PRN Saline Lock Insert [OM.PC] Stat - Assessment/Plan Last 24 Hours: My Active Orders 07/03/20 22:09 EKG Documentation Completion [RC] AM Sodium Chloride 0.9% [Saline Flush] 10 ml FLUSH ASDIRECTED PRN Sodium Chloride 0.9% [Saline Flush] 2.5 ml FLUSH ASDIRECTED PRN Saline Lock Insert [OM.PC] Stat
[2020-07-03 22:38] LABS: CARBON DIOXIDE,CO2 27.5 mmol/L (21.0-32.0); POTASSIUM,K 3.5 mmol/L (3.5-5.1)
--- NOTE | 2020-07-03 23:03 | CR ---
INDICATION: Epigastric pain TECHNIQUE: Single view chest. FINDINGS: The lungs are clear. The heart, mediastinum and pulmonary vessels are of normal size. There is no evidence of pleural disease. IMPRESSION: Negative chest. Dictated by Maribel Bernal MD @ 07/03/2020 11:01:[address] Maribel Bernal @ Jul 03 2020 11:01PM
[2020-07-03] MEDS ORDERED: Iopamidol 755 MG/ML 500 ML Multipack Bottle IVPUSH STA (23:17)
--- NOTE | 2020-07-03 23:45 | CT ---
Indication: Severe pain and tenderness Technique: Contrast enhanced axial CT imaging through the abdomen and pelvis. 70 mL Isovue 370 contrast agent was administered intravenously. Sagittal and coronal reconstructions are provided. Comparison: CT abdomen pelvis with contrast 06/01/2018 Findings: No abnormalities are demonstrated relating to the liver, spleen, pancreas, adrenal glands, and kidneys. Cholecystectomy clips are noted. The portal vein is patent. There is no abdominal lymphadenopathy. There is extensive atherosclerosis of the abdominal aorta without aortic aneurysm. The celiac axis vessels in superior mesenteric artery are patent. The stomach and duodenum are unremarkable. There is no small bowel wall thickening or abnormal distention. The appendix is noninflamed. There is no colonic wall thickening, mesenteric edema, or intraperitoneal free fluid. The urinary bladder, uterus, and ovaries are unremarkable. There is no pelvic lymphadenopathy or free fluid. Advanced degenerative changes are noted in the spine. There is chronic appearing vertebral compression deformity of L1 with severe height loss, worsened since 2019. The included lung bases are clear. Impression: 1. No acute abnormality. Patent mesenteric vasculature. Normal appendix. No findings to account for reported symptoms. 2. Advanced lumbar degenerative disease is in chronic appearing severe compression deformity of L1. Please note that all CT scans at this facility use dose modulation, iterative reconstruction, and/or weight-based dosing when appropriate to reduce radiation dose to as low as reasonably achievable. Dictated by Wendy Gr MD @ 07/03/2020 11:43:[address] Wendy Gr @ Jul 03 2020 11:43PM
[2020-07-04 02:04] VITALS: BP 150/70; PULSE 90
== END 2020-07-04 01:40 ==
LOC: MW.ED 22:03
DX: R10.13 Epigastric pain (principal); I10 Essential (primary) hypertension; I25.2 Old myocardial infarction; E03.9 Hypothyroidism, unspecified; G62.9 Polyneuropathy, unspecified; Z79.899 Other long term (current) drug therapy
CPT/HCPCS: 36415; 71045; 74177; 80053; 81003; 83690; 84484; 85025; 93005; 96374; 96375; 99285; J2405; J3010; J7030; Q9967; 93010; 99284

== ENCOUNTER 2022-11-08 22:07 | Emergency (ER) | payer MEDICARE, BC ==
[2022-11-08 22:50] LABS: BASOPHILS PERCENT AUTO 0.3 % (0.0-1.5); EOSINOPHILS ABSOLUTE AUTO 0.1 K/uL (0.0-0.7); EOSINOPHILS PERCENT AUTO 2.2 % (0.0-7.0); HEMATOCRIT 28.8 % (36.0-46.0); HEMOGLOBIN 8.9 g/dL (12.0-16.0); LYMPHOCYTES ABSOLUTE AUTO 1.1 K/uL (0.6-2.4); LYMPHOCYTES PERCENT AUTO 17.2 % (16.0-40.0); MEAN CORPUSCULAR HEMOGLOBIN 30.2 pg (27.0-32.0); MEAN CORPUSCULAR HGB CONC 30.9 g/dL (31.0-37.0); MEAN CORPUSCULAR VOLUME 97.6 fL (80.0-98.0); MONOCYTES ABSOLUTE AUTO 0.5 K/uL (0.0-0.8); MONOCYTES PERCENT AUTO 7.1 % (0.0-15.0); NEUTROPHILS ABSOLUTE AUTO 4.7 K/uL (1.4-5.7); NEUTROPHILS PERCENT AUTO 73.2 % (48.0-80.0); NRBC ABSOLUTE 0 K/uL; PLATELET COUNT,PLT 153 K/uL (150-400); RED BLOOD CELL COUNT 2.95 M/uL (4.30-5.90); WHITE BLOOD CELL COUNT,WBC 6.35 K/uL (4.0-11.0)
[2022-11-08 23:05] LABS: INR 1.03 (0.86-1.11)
[2022-11-08 23:18] LABS: A/G RATIO 0.7 (0.9-1.6); ALANINE AMINOTRANSFERASE,ALT 13 IU/L (14-63); ALBUMIN 2.9 g/dL (3.4-5.0); ALKALINE PHOSPHATASE 68 U/L (46-116); ASPARTATE AMNIOTRANSFERASE,AST 17 IU/L (15-37); BILIRUBIN TOTAL 0.2 mg/dL (0.2-1.0); BLOOD UREA NITROGEN,BUN 24 mg/dL (7.0-18.0); CALCIUM 8.6 mg/dL (8.5-10.1); CARBON DIOXIDE,CO2 27.8 mmol/L (21.0-32.0); CHLORIDE,CL 106 mmol/L (98-107); CREATININE 1.4 mg/dL (0.6-1.0); ESTIMATED GFR 39 mL/min (>60); GLUCOSE RANDOM 108 mg/dL (74-106); POTASSIUM,K 4.2 mmol/L (3.5-5.1); PROTEIN TOTAL,TP 7.1 g/dL (6.4-8.2); SODIUM,NA 140 mmol/L (136-145)
[2022-11-08 23:41] LABS: APPEARANCE,URINE SLT CLOUDY; BILIRUBIN,URINE NEGATIVE (NEGATIVE); COLOR,URINE YELLOW; GLUCOSE,URINE NEGATIVE (NEGATIVE); KETONES,URINE NEGATIVE (NEGATIVE); LEUKOCYTE ESTERASE,URINE LARGE (NEGATIVE); NITRITE,URINE POSITIVE (NEGATIVE); OCCULT BLOOD,URINE MODERATE (NEGATIVE); PH,URINE 6.5 (5.0-8.0); PROTEIN,URINE NEGATIVE (NEGATIVE); UROBILINOGEN,URINE 0.2 EU/dL (<2.0)
[2022-11-08] MEDS ORDERED: cefTRIAXone 1 GM in Sodium Chloride 0.9% 50 ML IV ONE (23:48)
[2022-11-08 23:52] LABS: EPITHELIAL CELLS,URINE OCCASIONAL (NONE-FEW); WBC,URINE 25-30 (0-5/HPF)
[2022-11-08 23:53] LABS: BACTERIA,URINE 4+ (NEGATIVE); MUCUS,URINE LIGHT (NONE-MOD)
[2022-11-09 01:48] VITALS: BP 116/68; PULSE 78
== END 2022-11-09 01:46 | disposition home or self-care (01) ==
LOC: MW.ED 22:07
DX: N39.0 Urinary tract infection, site not specified (principal); E03.9 Hypothyroidism, unspecified; I10 Essential (primary) hypertension; I25.10 Atherosclerotic heart disease of native coronary artery without angina pectoris; K21.9 Gastro-esophageal reflux disease without esophagitis; Z79.01 Long term (current) use of anticoagulants; Z79.899 Other long term (current) drug therapy; Z20.822 Contact with and (suspected) exposure to COVID-19
CPT/HCPCS: 36415; 70450; 71045; 80053; 81001; 82947; 83735; 84484; 85025; 85610; 85730; 93005; 96365; 99285; J0696; J3490; U0002; 93010; 99283